=== PATIENT | male | born 1945 | race Caucasian/White ===

== ENCOUNTER → 2017-06-12 07:40 | Outpatient (CLI) | payer MEDICARE, OTHER, SELFPAY ==
[2016-12-12 08:26] VITALS: BMI 26.7
[2016-12-12 10:46] VITALS: BP 137/71
--- NOTE | 2017-06-12 07:48 | RAD_ITS ---
STUDY: X-RAY - LEFT KNEE REASON FOR EXAM: Male, 71 years old. Knee pain. No known injury. TECHNIQUE: 4 view(s) of the knee. COMPARISON: None. FINDINGS: Normal visualized distal femur. Normal visualized proximal tibia and fibula. Normal proximal tibiofibular articulation. Normal medial femorotibial compartment. Normal lateral femorotibial compartment. Normal patellofemoral articulation. The soft tissue structures are unremarkable. RAD/Knee 4 or More Views IMPRESSION: Normal x-ray examination of the knee. Electronically Signed: Gus Ng MD at 12:41 EST Tel [phone], Service support ,
== END ==
PROVIDERS: Family Provider Family Medicine; PCP Family Medicine; Visit Provider Family Medicine
DX: M25.562 Pain in left knee (principal)
CPT/HCPCS: 73564

== ENCOUNTER 2018-01-19 14:30 | Outpatient (RCR) | payer MEDICARE, OTHER, SELFPAY ==
--- NOTE | 2017-11-18 17:16 | HP.PTEVAL_ITS ---
Patient's Visit Information AROLDO NEVILLE is a 72 year old M referred to Physical Therapy by Francesco Sierra DO with a diagnosis of Vertigo/ BPPV. Date of Evaluation: 11/18/17 Physical Therapist: Yamile Patrick - Visit Plan Frequency: 1x/Week Duration: 2 Months Plan: 1X/ week for 3-8 weeks for VOR exercises mostly in vertical plane to start....Started with vertical saccades ( netween 2 X's in vertical plane) for HEP in sitting with no distraction. Progress VOR as able - Subjective Subjective: Pt reports that he has vertigo 4X over the last 45 years.... This is about the 5th week this spell...sinus to ear and antibiotics and then got the vertigo. Current symptoms: dizziness (getting better).. He is no longer spinning. If he is in bed and laying on his back with a pillow he feels it...better to lay on belly. Sometimes he will get dizzy if he rolls from side to side. Fast movement increases his dizziness (last about 5 seconds). This was intermittent when it first started.... No dizziness today. He watches what he does cause he does not want to get sick. He has issues if he looks up toward the ceiling sometimes. Pt has no neck pain. No x-ray or MRI. No issues with balance with walking....when working on his back and sit up he always has to adjust his equilibrium. Pt did comment that sometimes he wakes up and has eye strain behind his eyes and feel like his eyes have a strong pull to the back of his head. - Objective -B Hallpike. -Roll test. Pursuit horizontal X 30 sec made pt nausea to stomach and slight hint of dizzy. Pursuit vertical X 15 sec increased nausea and dizzy and pt had a hard time staying focused on vertical moving pen. Saccades: horizontal a little sick to stomach, vertical really nauseated, decreased fluidity of eye movement and increase in dizziness. VOR CX horizontal : pt could not move eyes and head at the same time with increased dizziness. VOR X 1 horizontal: increase nauseated feeling. +++Increased eye tearing and some verbal talk of strain with eye exercises. +++Pt had a harder to time with visual and audible distractions staying focused. FGA: - Balance Scores Functional Gait Assessment Score: 27 % Disability: 10.0000 - Goals Goal 1:: I HEP Goal Time Frame: 4-6 Weeks Goal 2:: Return to Yoga without having any dizziness Goal Time Frame: 4-6 Weeks Goal 3:: Decrease dizziness with head movements by 75% Goal Time Frame: 4-6 Weeks Goal 4:: Be able to complete head and eye movements together without dizziness or nausea X 1 min in standing wwith background distractions Goal Time Frame: 4-6 Weeks - Rehabilitation Potential Rehabilitation Potential: Good - Anticipated Interventions Patient/Client Instruction: Educate patient on: Condition, Plan of Care For the Purpose of:: To increase ROM, To improve muscle performance and motor function, To improve ability to perform ADL's, To increase tolerance to activity /condition/position, To improve performance and independence with ADL's, To improve gait and locomotor functions, To increase flexibility/ROM, To improve balance, To improve safety with gait Therapeutic Exercise to Include: Strength training, Balance training, Coordination, Postural training, Gait and locomotor training, Neuromotor development, Active ROM For the Purpose of:: To improve nutrient delivery to tissue, To improve muscle performance and motor function, To improve ability to perform ADL's, To increase tolerance to activity/condition/position, To improve ability of physical actions for home/community/work/leisure, To improve gait and locomotor functions, To improve health of tissue, To decrease soft tissue restriction, To increase flexibility/ROM, To improve balance, To improve safety with gait Thank you for the opportunity to evaluate your patient. For Medicare and Medicare HMO plans, please review the plan of care and approve it. It will need to be FAXED BACK to us at [phone] for Medicare purposes. Please let me know if there are questions or concerns regarding this plan of care. Physician Signature: Date:
--- NOTE | 2018-01-12 15:28 | HP.PTREVAL_ITS ---
Francesco Sierra, DO, It has been my pleasure to treat AROLDO NEVILLE over the last 3 visits for Vertigo/ BPPV. Please see the progress note below for an update on the physical therapy plan of care! Subjective: Pt reports no dizziness currently. If he lays down and gets up it takes awhile for him to get his equallibrium to even out. If he works on a vehicle at home and gets up he has to wait. He is doing the eye exercises at times and feels that they did help. Pt reports that if he is laying in bed and holds his neck into protraction to get up he will get dizzy. 37 years ago he was carrying his son around his neck and really had to use his neck to hold his son from falling...no other neck injuty. No weakness in shoulders. No decrease neck ROM. Thursday he was going down steps and fell down the steps by slippery. A little shoulder pain present L due to the fall. ( L shoulder pain 1/0) Objective/Function: Pt felt looser after MT. He felt like he had more ROM. He mentioned that he possibly had some base of neck tingling after MT but not a bad feeling. c-SPINE arom: Flex 100%, Ext 25%, Rot R 50% and L 50%, SB B 50% . UE MMT: 4+/5 B shld flexm abd, ER and IR B. Tender and tight tp palpation of the upper c-spine, paraspinals, occiput, and mid trap B. Pt felt stretching with distraction of the c-spine. Posture: sits with rounded shoulders and protracted head with flexion. Pt had increased ROM and increased ease of c- spine AROM after MT Plan Plan: 2X/ week for 2 weeks for c-spine distraction, c-spine paraspinal MT, mid trap Mt and trigger point with ROM and stretching to see if helps with dizzy feeling when straining his neck as in supine to sit transfers etc. ALSO SCAPULAR AND POSTURAL STRENGTHENING FOR HOME EX Goals Goal 1:: I HEP for scapular strength Goal Time Frame: 4-6 Weeks Goal 2:: Return to Yoga without having any dizziness Goal Time Frame: 4-6 Weeks Goal Progress: Goal Met Goal 3:: Decrease dizziness with head movements by 75% Goal Time Frame: 4-6 Weeks Goal Progress: Goal Met Goal 4:: Be able to complete head and eye movements together without dizziness or nausea X 1 min in standing wwith background distractions Goal Time Frame: 4-6 Weeks Goal 5:: Be able to go from supine to sit with out have wave of dizziness Goal Time Frame: 2-4 Weeks Anticipated Interventions Patient/Client Instruction: Educate patient on: Condition, Plan of Care For the Purpose of:: To increase ROM, To improve muscle performance and motor function, To improve ability to perform ADL's, To increase tolerance to activity /condition/position, To improve performance and independence with ADL's, To improve gait and locomotor functions, To increase flexibility/ROM, To improve balance, To improve safety with gait Therapeutic Exercise to Include: Strength training, Balance training, Coordination, Postural training, Gait and locomotor training, Neuromotor development, Active ROM For the Purpose of:: To improve nutrient delivery to tissue, To improve muscle performance and motor function, To improve ability to perform ADL's, To increase tolerance to activity/condition/position, To improve ability of physical actions for home/community/work/leisure, To improve gait and locomotor functions, To improve health of tissue, To decrease soft tissue restriction, To increase flexibility/ROM, To improve balance, To improve safety with gait Please do not hesitate to contact me at [phone] by phone or Fax: if you have questions or concerns regarding this new plan of care! Sincerely, Yamile Patrick
--- NOTE | 2018-01-20 18:29 | HP.PTDCNRP_ITS ---
HP - Discharge Summary (1) - Patient Information AROLDO NEVILLE was seen in my office for initial evaluation on 11/18/17. The following Plan of Care was established for this patient: Initial Frequency: 1x/Week Initial Duration: 2 Months - Anticipated Interventions Patient/Client Instruction: Educate patient on: Condition, Plan of Care For the Purpose of:: To increase ROM, To improve muscle performance and motor function, To improve ability to perform ADL's, To increase tolerance to activity /condition/position, To improve performance and independence with ADL's, To improve gait and locomotor functions, To increase flexibility/ROM, To improve balance, To improve safety with gait Therapeutic Exercise to Include: Strength training, Balance training, Coordination, Postural training, Gait and locomotor training, Neuromotor development, Active ROM For the Purpose of:: To improve nutrient delivery to tissue, To improve muscle performance and motor function, To improve ability to perform ADL's, To increase tolerance to activity/condition/position, To improve ability of physical actions for home/community/work/leisure, To improve gait and locomotor functions, To improve health of tissue, To decrease soft tissue restriction, To increase flexibility/ROM, To improve balance, To improve safety with gait This patient was last seen in our office 01/19/18. Pertinent comments regarding their Physical therapy will appear below: Pt reported on 01-19-18 that he was 99% better and was no longer having dizziness. We tried a little c-spine traction to and MT to the c-spine musculature to see if helped with any residual issues and pt called backed and said that the c-spine manual therapy was not that effective and he cancelled his last appointment with us. He will be discharged from our care at this point. At this point I will be discontinuing this patient from physical therapy. I would be happy to see this patient again in the future if found appropriate by the physician. Thank you! Yamile Patrick
== END 2018-01-19 19:00 | disposition home or self-care (01) ==
LOC: PT 14:30
PROVIDERS: Family Provider Family Medicine; PCP Family Medicine; Visit Provider Family Medicine
DX: R42 Dizziness and giddiness (principal)
CPT/HCPCS: 97110; 97140; 97162; 97530

== ENCOUNTER → 2018-02-19 06:31 | Outpatient (CLI) | payer MEDICARE, OTHER, SELFPAY ==
[2018-02-19 08:33] LABS: PSA,Total- Diagnostic 3.86 ng/mL (0.0-4.0)
== END ==
LOC: LAB.FUTURE 08-23 00:37 → BFHLAB 12-21 13:39
PROVIDERS: Family Provider Family Medicine; PCP Family Medicine; Referring Provider Urology; Visit Provider Urology
DX: R97.20 Elevated prostate specific antigen [PSA] (principal)
CPT/HCPCS: 36415; 84153

== ENCOUNTER → 2018-06-05 07:46 | Outpatient (CLI) | payer MEDICARE, OTHER, SELFPAY ==
[2016-12-12 08:26] VITALS: BMI 26.7
[2018-06-05 08:23] LABS: Absolute Lymphocyte Count 2.23 X10^3/ul (0.83-4.51); Absolute Neutrophil Count 3.5 X10^3/uL (2.0-7.7); Basophil# 0.06 X10^3/uL; Basophil% 0.9 % (0-1); Eosinophil# 0.18 X10^3/uL; Eosinophils% 2.6 % (0-5); Hemoglobin 16.2 g/dl (13.0-16.5); Lymphocyte # 2.23 X10^3/ul (4.0); Lymphocyte % 32.7 % (19-41); Mean Corp Hgb Conc 33.1 g/gl (32-36); Mean Corpuscular Hgb 29.5 pg (27.0-32.0); Mean Corpuscular Volume 89.3 fL (80-94); Mean Platelet Vol. 9.5 fl (6.2-12.0); Monocyte% 11.7 % (0-10); Neutrophil # 3.53 X10^3/uL (2.7-7.7); Neutrophil % 51.8 % (47-70); POSITIVE COUNT NO; POSITIVE DIFFERENTIAL NO; POSITIVE MORPHOLOGY NO; Platelet Count 294 K/mm3 (150-450); RBC Distribution Width CV 12.9 % (11.6-14.6); RBC Distribution Width SD 41.7 fl (35.1-43.9); Red Blood Count 5.49 M/mm3 (4.6-6.2); White Blood Count 6.8 K/mm3 (4.4-11.0)
[2018-06-05 08:50] LABS: ALB/GLOB Ratio 0.9 RATIO (0.9-2.4); AST(SGOT) 15 U/L (15-37); Alanine Aminotransfer ALT/SGPT 27 U/L (16-61); Albumin, Serum 3.7 g/dL (3.2-5.0); Alkaline Phosphatase 102 U/L (45-117); Anion Gap 9 (5-15); BUN 17 mg/dL (7-18); BUN/Creat Ratio 17.4 RATIO (10-20); Calcium,Total 8.8 mg/dL (8.5-10.1); Chloride 104 mmol/L (98-107); Cholesterol 224 mg/dL (200); Creatinine, Serum 0.98 mg/dL (0.70-1.30); EST Glomerular Filtration Rate 81 mL/min (>60); Est Glom Filt Rate - Afr Amer 97 mL/min (>60); Globulin 4.2 g/dL (2.2-4.2); Glucose 123 mg/dL (74-106); High Density Lipoprotein 71 mg/dL; Potassium 4.3 mmol/L (3.5-5.1); Protein, Total 7.9 g/dL (6.4-8.2); Sodium Level 139 mmol/L (136-145); Triglycerides 104 mg/dL; Very Low Density Lipoprotein 21 mg/dL (5-40)
== END ==
LOC: LAB.FUTURE 04-18 23:09 → BFHLAB 12-21 13:39
PROVIDERS: Family Provider Family Medicine; PCP Family Medicine; Referring Provider Family Medicine; Visit Provider Family Medicine
DX: I10 Essential (primary) hypertension (principal); E78.5 Hyperlipidemia, unspecified; R73.01 Impaired fasting glucose
CPT/HCPCS: 36415; 80053; 80061; 83036; 85025

== ENCOUNTER → 2019-03-15 08:44 | Outpatient (CLI) | payer MEDICARE, OTHER, SELFPAY ==
[2016-12-12 08:26] VITALS: BMI 26.7
[2019-03-15 10:06] LABS: PSA,Total- Diagnostic 2.96 ng/mL (0.0-4.0)
== END ==
LOC: LAB.FUTURE 10:28 → LAB 10:51
PROVIDERS: Family Provider Family Medicine; PCP Family Medicine; Referring Provider Urology; Visit Provider Urology
DX: N40.1 Benign prostatic hyperplasia with lower urinary tract symptoms (principal)
CPT/HCPCS: 36415; 84153

== ENCOUNTER → 2019-05-26 06:50 | Outpatient (CLI) | payer MEDICARE, OTHER, SELFPAY ==
[2016-12-12 08:26] VITALS: BMI 26.7
[2019-05-26 07:32] LABS: Absolute Lymphocyte Count 2.09 X10^3/uL (0.83-4.51); Absolute Neutrophil Count 3.8 X10^3/uL (2.0-7.7); Basophil# 0.09 X10^3/uL; Basophil% 1.3 % (0-1); Eosinophil# 0.21 X10^3/uL; Eosinophils% 3.1 % (0-5); Hematocrit 49.7 % (40-54); Hemoglobin 16.3 g/dL (13.0-16.5); Lymphocyte # 2.09 X10^3/ul (4.0); Lymphocyte % 30.4 % (19-41); Mean Corp Hgb Conc 32.8 g/dL (32-36); Mean Corpuscular Hgb 29.1 pg (27.0-32.0); Mean Corpuscular Volume 88.6 fL (80-94); Mean Platelet Vol. 9.3 fl (6.2-12.0); Monocyte# 0.69 X10^3/uL; NRBC Flagged by Analyzer 0 % (0-5); Neutrophil # 3.79 X10^3/uL (2.7-7.7); Neutrophil % 55.1 % (47-70); Platelet Count 346 K/mm3 (150-450); RBC Distribution Width CV 12.3 % (11.6-14.6); Red Blood Count 5.61 M/mm3 (4.6-6.2); White Blood Count 6.9 K/mm3 (4.4-11.0)
[2019-05-26 07:40] LABS: ALB/GLOB Ratio 0.9 RATIO (0.9-2.4); AST(SGOT) 16 U/L (15-37); Alanine Aminotransfer ALT/SGPT 28 U/L (16-61); Albumin, Serum 3.7 g/dL (3.2-5.0); Alkaline Phosphatase 99 U/L (45-117); Anion Gap 2 (5-15); BUN 16 mg/dL (7-18); BUN/Creat Ratio 14.5 RATIO (10-20); Calcium,Total 9.2 mg/dL (8.5-10.1); Chloride 106 mmol/L (98-107); Cholesterol 227 mg/dL (200); EST Glomerular Filtration Rate 70 mL/min (>60); Est Glom Filt Rate - Afr Amer 85 mL/min (>60); Globulin 4.2 g/dL (2.2-4.2); Glucose 120 mg/dL (74-106); High Density Lipoprotein 72 mg/dL; Potassium 4.4 mmol/L (3.5-5.1); Protein, Total 7.9 g/dL (6.4-8.2); Sodium Level 138 mmol/L (136-145); Triglycerides 123 mg/dL; Very Low Density Lipoprotein 25 mg/dL (5-40)
[2019-05-26 09:14] LABS: Hemoglobin A1c 6.6 % (4.2-6.3)
[2019-05-26 09:23] LABS: Microalbumin,Random Urine 12.7 mg/L (NO RANGE EST.); Microalbumin:Creatinine Ratio 7.1 mg/g CRE (<30 mg/g CRE)
== END ==
LOC: LAB.FUTURE 06:54 → LAB 07:00
PROVIDERS: Family Provider Family Medicine; PCP Family Medicine; Referring Provider Family Medicine; Visit Provider Family Medicine
DX: I10 Essential (primary) hypertension (principal); E11.9 Type 2 diabetes mellitus without complications; E78.5 Hyperlipidemia, unspecified
CPT/HCPCS: 36415; 80053; 80061; 82043; 82570; 83036; 85025

== ENCOUNTER 2019-11-25 11:04 | Emergency (ER) | payer MEDICARE, OTHER, SELFPAY ==
[2019-11-25 11:05] VITALS: BP 178/85; PULSE 74; RESP 16; TEMP 36.7; O2SAT 96; BMI 27.3
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
== END 2019-11-25 12:29 | disposition home or self-care (01) ==
LOC: ED 12:26
PROVIDERS: Emergency Provider Emergency Medicine; PCP Family Medicine
DX: S01.21XA Laceration without foreign body of nose, initial encounter (principal); W22.8XXA Striking against or struck by other objects, initial encounter; Y93.9 Activity, unspecified; Y92.89 Other specified places as the place of occurrence of the external cause; Y99.9 Unspecified external cause status; Z88.8 Allergy status to other drugs, medicaments and biological substances
CPT/HCPCS: 12011; 70450; 99282

== ENCOUNTER → 2020-02-07 15:10 | Outpatient (CLI) | payer MEDICARE, OTHER, SELFPAY | PROVIDERS: PCP Family Medicine; Referring Provider Urology; Visit Provider Urology | DX: R97.20 Elevated prostate specific antigen [PSA] (principal) | CPT/HCPCS: 36415; 84153 ==

== ENCOUNTER → 2020-03-08 16:05 | Outpatient (CLI) | payer MEDICARE, OTHER, SELFPAY ==
--- NOTE | 2020-03-08 | IMM_PTH ---
PATIENT: AROLDO NEVILLE LOC: [facility] U#:[id number] AGE/SX: 79/M ROOM: RE03/08/[address]: Dr. Aron Cheney MD : 1945 BED: DIS: SPEC #: [id number] RECD: 03/12/20 14:00 STATUS: JYOTI REQ #: [id number] DOMINIK: 03/08/20 00:[address]: Aron Cheney DEPT: IMMUNOHISTOCHEMISTRY RECD BY: Sarah Richardson ENTERED: 03/12/20 14:02 SP TYPE: IMMUNO OTHR DR: Dr. Francesco Sierra DO Tissues: A - PROSTATE RIGHT B - PROSTATE RIGHT C - PROSTATE RIGHT D - PROSTATE LEFT E - PROSTATE LEFT F - PROSTATE LEFT Procedures: 34BE12 (add) P40 (add) 34BE12 (initial) PHYSICIAN & INSTITUTION [place] [id number] SPECIMEN INFORMATION: Tissue Source: A - Right apex, B - Right mid, C - Right base, D - Left apex, E - Left mid, F - Left base Clinical Info: Elevated PSA, nodular prostate Specimen Number: [id number] CPT code: 79912, 47911 x11 METHODOLOGY: Deparaffinized sections of prefer/formalin-fixed tissue or PAP/DQ stained slides are incubated with monoclonal/polyclonal antibodies/oligonucleotide probes. Localization is made via biotin free immunoperoxidase method. Appropriate controls are performed and reacted as expected. Results on target cell population are indicated in the following table: RESULTS: ANTIBODY / CLONE RESULT Block A P40 (BC28) positive 34BE12 (34BE12) positive Block B P40 (BC28) positive 34BE12 (34BE12) positive Block C P40 (BC28) positive 34BE12 (34BE12) positive Block D P40 (BC28) positive 34BE12 (34BE12) positive Block E P40 (BC28) positive 34BE12 (34BE12) positive Block F P40 (BC28) positive 34BE12 (34BE12) positive These tests were developed and their performance characteristics determined by [facility]. They may not have been cleared or approved by the U.S. Food and Drug Administration. The FDA has determined that such clearance or approval is not necessary. The above immunohistochemical/dualISH markers are ordered and reviewed by the Pathologist. INTERPRETATION: A. Right prostate, apex, core biopsy: High-grade prostatic intraepithelial neoplasia (HGPIN). B. Right prostate, mid, core biopsy: High-grade prostatic intraepithelial neoplasia (HGPIN). C. Right prostate, base, core biopsy: High-grade prostatic intraepithelial neoplasia (HGPIN). D. Left prostate, apex, core biopsy: High-grade prostatic intraepithelial neoplasia (HGPIN). E. Left prostate, mid, core biopsy: High-grade prostatic intraepithelial neoplasia (HGPIN). F. Left prostate, base, core biopsy: High-grade prostatic intraepithelial neoplasia (HGPIN). SJ:jessica 03/13/20
--- NOTE | 2020-03-08 08:00 | PROSBIL_PTH ---
PATIENT: AROLDO NEVILLE LOC: [facility] U#:[id number] AGE/SX: 79/M ROOM: RE03/08/[address]: Dr. Aron Cheney MD : 1945 BED: DIS: SPEC #: [id number] RECD: 03/08/20 15:53 STATUS: JYOTI PADMA #: [id number] DOMINIK: 03/08/20 08:[address]: Aron Cheney DEPT: SURGICAL PATHOLOGY RECD BY: Cristina Victor ENTERED: 03/09/20 06:47 SP TYPE: PROST BX OSMIN DR: Dr. Francesco Sierra DO Tissues: A - PROSTATE RIGHT B - PROSTATE RIGHT C - PROSTATE RIGHT D - PROSTATE LEFT E - PROSTATE LEFT F - PROSTATE LEFT Procedures: PROSTATE BX HEADER OPERATION: Prostate biopsy PRE-OP DIAGNOSIS: Elevated PSA; nodular prostate TISSUE SUBMITTED: A - Right apex, B - Right mid, C - Right base, D - Left apex, E - Left mid, F - Left base MICROSCOPIC DIAGNOSIS A. Right prostate, apex, core biopsy: Focal high-grade prostatic intraepithelial neoplasia (HGPIN). See comment. B. Right prostate, mid, core biopsy: Focal high-grade prostatic intraepithelial neoplasia (HGPIN). Focal mild chronic inflammation. See comment. C. Right prostate, base, core biopsy: Focal high-grade prostatic intraepithelial neoplasia (HGPIN). Focal mild chronic inflammation. See comment. D. Left prostate, apex, core biopsy: Focal high-grade prostatic intraepithelial neoplasia (HGPIN). Focal mild chronic inflammation. See comment. E. Left prostate, mid, core biopsy: Focal high-grade prostatic intraepithelial neoplasia (HGPIN). See comment. F. Left prostate, base, core biopsy: Focal high-grade prostatic intraepithelial neoplasia (HGPIN). See comment. SJ:rg 03/13/20 COMMENT A-F. Immunohistochemistry ([id number]) supports the above diagnosis. Please make reference to previous specimen ([id number]) right prostate, apex, deep middle and base and left prostate, apex, middle and base biopsies with diagnosis of high-grade prostatic intraepithelial neoplasia. Slides are reviewed again. Tumor in present biopsy shows similar morphologic features as in the previous biopsy. MICROSCOPIC DESCRIPTION Slides are reviewed. GROSS DESCRIPTION A - Received is one container designated prostate, right apex. The specimen consists of two elongated fragments of light correia-white soft tissue each measuring 0.7 cm in length and 0.1 cm in diameter. The specimen is totally submitted in one cassette. B - Received is one container designated prostate, right mid. The specimen consists of two elongated fragments of light correia-white soft tissue measuring 1.2 and 1.5 cm in length and 0.1 cm in diameter. The specimen is totally submitted in one cassette. C - Received is one container designated prostate, right base. The specimen consists of two elongated fragments of light correia-white soft tissue each measuring 1.5 cm in length and 0.1 cm in diameter. The specimen is totally submitted in one cassette. D - Received is one container designated prostate, left apex. The specimen consists of two elongated fragments of light correia-white soft tissue measuring 0.7 and 1 cm in length and 0.1 cm in diameter. The specimen is totally submitted in one cassette. E - Received is one container designated prostate, left mid. The specimen consists of two elongated fragments of light correia-white soft tissue measuring 0.5 and 2 cm in length and 0.1 cm in diameter. The specimen is totally submitted in one cassette. F - Received is one container designated prostate, left base. The specimen consists of two elongated fragments of light correia-white soft tissue each measuring 1.5 cm in length and 0.1 cm in diameter. The specimen is totally submitted in one cassette. / JOS:jessica 03/09/20 TC:5 CPT: G0146 ADDENDUM ADDENDUM ADDENDUM ADDENDUM ADDENDUM ADDENDUM ADDENDUM ADDENDUM ADDENDUM ADDENDUM ADDENDUM ADDENDUM ADDENDUM ADDENDUM ADDENDUM ADDENDUM 03/23/2020 12:48 ADDENDUM 03/23/2020 12:48 ADDENDUM 03/23/2020 12:48 ADDENDUM 03/23/2020 12:48 ADDENDUM 03/23/2020 12:48 A. Right prostate, apex, core biopsy: High-grade prostatic intraepithelial neoplasia (HGPIN). B. Right prostate, mid, core biopsy: High-grade prostatic intraepithelial neoplasia (HGPIN). C. Right prostate, base, core biopsy: High-grade prostatic intraepithelial neoplasia (HGPIN). D. Left prostate, apex, core biopsy: High-grade prostatic intraepithelial neoplasia (HGPIN). E. Left prostate, mid, core biopsy: High-grade prostatic intraepithelial neoplasia (HGPIN). F. Left prostate, base, core biopsy: High-grade prostatic intraepithelial neoplasia (HGPIN). The specimen is sent to [facility] for expert opinion, reviewed by Dr. Denny and the above diagnosis is rendered. The complete report is viewable in the patient's EMR.
== END ==
PROVIDERS: PCP Family Medicine; Referring Provider Urology; Visit Provider Urology
DX: N40.2 Nodular prostate without lower urinary tract symptoms (principal); R97.20 Elevated prostate specific antigen [PSA]
CPT/HCPCS: 88305; 88341; 88342; G0416

== ENCOUNTER → 2020-05-21 11:03 | Outpatient (CLI) | payer MEDICARE, OTHER, SELFPAY ==
[2020-05-21 12:56] LABS: Absolute Lymphocyte Count 1.58 X10^3/uL (0.83-4.51); Absolute Neutrophil Count 5.3 X10^3/uL (2.0-7.7); Basophil# 0.04 X10^3/uL; Basophil% 0.5 % (0-1); Eosinophil# 0.06 X10^3/uL; Eosinophils% 0.8 % (0-5); Hematocrit 48.6 % (40-54); Hemoglobin 15.8 g/dL (13.0-16.5); Lymphocyte # 1.58 X10^3/ul (4.0); Lymphocyte % 20.4 % (19-41); Mean Corp Hgb Conc 32.5 g/dL (32-36); Mean Corpuscular Hgb 28.7 pg (27.0-32.0); Mean Corpuscular Volume 88.4 fL (80-94); Mean Platelet Vol. 9.6 fl (6.2-12.0); Monocyte# 0.77 X10^3/uL; Monocyte% 9.9 % (0-10); NRBC Flagged by Analyzer 0 % (0-5); Neutrophil # 5.29 X10^3/uL (2.7-7.7); Neutrophil % 68.3 % (47-70); Platelet Count 367 K/mm3 (150-450); RBC Distribution Width CV 11.8 % (11.6-14.6); RBC Distribution Width SD 38.2 fl (35.1-43.9); White Blood Count 7.8 K/mm3 (4.4-11.0)
[2020-05-21 13:12] LABS: Hemoglobin A1c 7.2 % (3.8-5.6)
[2020-05-21 13:40] LABS: ALB/GLOB Ratio 0.8 RATIO (0.9-2.4); AST(SGOT) 12 U/L (15-37); Alanine Aminotransfer ALT/SGPT 27 U/L (16-61); Albumin, Serum 3.8 g/dL (3.2-5.0); Alkaline Phosphatase 95 U/L (45-117); Anion Gap 9 (5-15); BUN 18 mg/dL (7-18); BUN/Creat Ratio 18.6 RATIO (10-20); CRP 6.36 mg/L (0.0-3.0); Calcium,Total 9.4 mg/dL (8.5-10.1); Chloride 102 mmol/L (98-107); Creatinine, Serum 0.97 mg/dL (0.70-1.30); EST Glomerular Filtration Rate 81 mL/min (>60); Est Glom Filt Rate - Afr Amer 98 mL/min (>60); Globulin 4.5 g/dL (2.2-4.2); Glucose 153 mg/dL (74-106); LDH 158 U/L (87-241); Protein, Total 8.3 g/dL (6.4-8.2); Sodium Level 136 mmol/L (136-145); T4 Free Direct 1.01 ng/dL (0.76-1.46); Thyroid Stim Hormone (TSH) 2.23 uIU/mL (0.358-3.74)
[2020-05-21 14:43] LABS: Hepatitis C Antibody Non-Reactive (Nonreactive)
[2020-05-24 08:08] LABS: QNTFERON TB Mitogen Value > 10.00 IU/mL (.); QNTFERON TB Nil Value 0.04 IU/mL (.); QNTFERON TB1+ Ag Value 0.03 IU/mL (.); QNTFERON TB2+ Ag Value 0.03 IU/mL (.); Testosterone, Free 11.42 ng/dL (5.00-21.00)
[2020-05-24 14:10] LABS: QNTIFERON TB Positive Criteria Negative (Negative); Testosterone, % Free 2.37 % (1.50-4.20); Testosterone, Total 482 ng/dL (264-916)
== END ==
PROVIDERS: PCP Family Medicine; Visit Provider Family Medicine
DX: E11.9 Type 2 diabetes mellitus without complications (principal); I10 Essential (primary) hypertension; E78.5 Hyperlipidemia, unspecified; R61 Generalized hyperhidrosis; R53.83 Other fatigue
CPT/HCPCS: 36415; 80053; 83036; 83615; 84402; 84403; 84439; 84443; 85025; 86140; 86480; 86803

== ENCOUNTER → 2020-11-07 08:39 | Outpatient (CLI) | payer MEDICARE, OTHER, SELFPAY ==
[2020-11-07 09:29] LABS: Basophil# 0.07 X10^3/uL; Basophil% 0.8 % (0-1); Eosinophils% 1.1 % (0-5); Hematocrit 46.6 % (40-54); Hemoglobin 15.3 g/dL (13.0-16.5); Lymphocyte % 22.9 % (19-41); Mean Corp Hgb Conc 32.8 g/dL (32-36); Mean Corpuscular Hgb 28.7 pg (27.0-32.0); Mean Corpuscular Volume 87.4 fL (80-94); Mean Platelet Vol. 9.2 fl (6.2-12.0); Monocyte# 0.89 X10^3/uL; Monocyte% 9.7 % (0-10); NRBC Flagged by Analyzer 0 % (0-5); Neutrophil # 5.98 X10^3/uL (2.7-7.7); Neutrophil % 65.3 % (47-70); Platelet Count 404 K/mm3 (150-450); RBC Distribution Width CV 12.3 % (11.6-14.6); RBC Distribution Width SD 39.5 fl (35.1-43.9); Red Blood Count 5.33 M/mm3 (4.6-6.2); White Blood Count 9.2 K/mm3 (4.4-11.0)
[2020-11-07 10:06] LABS: ALB/GLOB Ratio 0.9 RATIO (0.9-2.4); AST(SGOT) 14 U/L (15-37); Alanine Aminotransfer ALT/SGPT 21 U/L (16-61); Albumin, Serum 3.7 g/dL (3.2-5.0); Alkaline Phosphatase 107 U/L (45-117); Anion Gap 5 (5-15); BUN 16 mg/dL (7-18); Chloride 104 mmol/L (98-107); Cholesterol 245 mg/dL (200); Creatinine, Serum 1.07 mg/dL (0.70-1.30); EST Glomerular Filtration Rate 72 mL/min (>60); Est Glom Filt Rate - Afr Amer 87 mL/min (>60); Globulin 4.3 g/dL (2.2-4.2); Glucose 156 mg/dL (74-106); High Density Lipoprotein 75 mg/dL; Sodium Level 134 mmol/L (136-145); Triglycerides 102 mg/dL; Very Low Density Lipoprotein 20 mg/dL (5-40)
[2020-11-07 10:10] LABS: Hemoglobin A1c 7.5 % (3.8-5.6)
[2020-11-07 10:49] LABS: Microalbumin:Creatinine Ratio 16.2 mg/g CRE (<30 mg/g CRE)
== END ==
PROVIDERS: PCP Family Medicine; Referring Provider Family Medicine; Visit Provider Family Medicine
DX: E11.9 Type 2 diabetes mellitus without complications (principal); E78.5 Hyperlipidemia, unspecified; Z51.81 Encounter for therapeutic drug level monitoring
CPT/HCPCS: 36415; 80053; 80061; 82043; 82570; 83036; 85025

== ENCOUNTER → 2020-12-11 10:30 | Outpatient (CLI) | payer MEDICARE, OTHER, SELFPAY ==
--- NOTE | 2020-12-11 10:36 | RAD_ITS ---
STUDY: X-RAY - PELVIS REASON FOR EXAM: Male, 75 years old. Hip pain. TECHNIQUE: One view of the pelvis was obtained. COMPARISON: None. FINDINGS: There is a non-specific bowel gas pattern. Coils in the pelvis. Normal bilateral iliac wings, sacroiliac joints and visualized sacrum. Normal visualized bilateral superior and inferior pubic rami. Moderate arthrosis of the symphysis pubis. Normal ischial tuberosities. Mild arthrosis of both hips. 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 No acute finding. Electronically Signed: Brian Davis MD at 9:32 EDT , Service support ,
== END ==
PROVIDERS: PCP Family Medicine; Referring Provider Family Medicine; Visit Provider Family Medicine
DX: M25.551 Pain in right hip (principal); M25.552 Pain in left hip
CPT/HCPCS: 72170

== ENCOUNTER → 2021-01-11 17:02 | Outpatient (CLI) | payer MEDICARE, OTHER, SELFPAY ==
--- NOTE | 2021-01-11 17:24 | RAD_ITS ---
STUDY: X-RAY - LEFT KNEE REASON FOR EXAM: Male, 75 years old. L KNEE PAIN TECHNIQUE: 3 view(s) of the knee. COMPARISON: None. FINDINGS: Normal visualized distal femur. Normal visualized proximal tibia and fibula. Normal proximal tibiofibular articulation. Normal medial femorotibial compartment. Normal lateral femorotibial compartment. Normal patellofemoral articulation. The soft tissue structures are unremarkable. RAD/Knee 4 or More Views IMPRESSION: Normal x-ray examination of the knee. Electronically Signed: Leah Freire MD at 12:00 EDT Tel , Service support ,
== END ==
PROVIDERS: PCP Family Medicine; Referring Provider Family Medicine; Visit Provider Family Medicine
DX: M25.562 Pain in left knee (principal)
CPT/HCPCS: 73564

== ENCOUNTER → 2021-03-08 07:20 | Outpatient (CLI) | payer MEDICARE, OTHER, SELFPAY ==
[2021-03-08 08:16] LABS: PSA,Total- Diagnostic 4.39 ng/mL (0.0-4.0)
== END ==
PROVIDERS: PCP Family Medicine; Visit Provider Urology
DX: R97.20 Elevated prostate specific antigen [PSA] (principal)
CPT/HCPCS: 36415; 84153

== ENCOUNTER → 2021-04-11 17:51 | Outpatient (CLI) | payer MEDICARE, OTHER, SELFPAY | PROVIDERS: PCP Family Medicine; Referring Provider Family Medicine; Visit Provider Family Medicine | DX: R05.9 Cough, unspecified (principal); R09.81 Nasal congestion; R52 Pain, unspecified | CPT/HCPCS: 87633; 87635; U0005; U0003 ==

== ENCOUNTER 2021-06-12 08:49 | Outpatient (CLI) | payer MEDICARE, OTHER, SELFPAY ==
[2021-06-12 11:52] LABS: Cholesterol 221 mg/dL (200); High Density Lipoprotein 76 mg/dL; Triglycerides 91 mg/dL; Very Low Density Lipoprotein 18 mg/dL (5-40)
== END 2021-06-12 23:59 | disposition home or self-care (01) ==
LOC: LAB 08:52
PROVIDERS: PCP Family Medicine; Referring Provider Family Medicine; Visit Provider Family Medicine
DX: E11.9 Type 2 diabetes mellitus without complications (principal); E78.5 Hyperlipidemia, unspecified
CPT/HCPCS: 36415; 80061; 83036

== ENCOUNTER → 2021-10-11 | Outpatient (CLI) | payer MEDICARE, OTHER, SELFPAY ==
[2021-10-11 06:41] LABS: Absolute Lymphocyte Count 1.98 X10^3/uL (0.83-4.51); Absolute Neutrophil Count 3.2 X10^3/uL (2.0-7.7); Basophil# 0.07 X10^3/uL; Basophil% 1.1 % (0-1); Eosinophil# 0.22 X10^3/uL; Eosinophils% 3.5 % (0-5); Hematocrit 47.6 % (40-54); Hemoglobin 15.8 g/dL (13.0-16.5); Lymphocyte # 1.98 X10^3/ul (0.83-4.51); Lymphocyte % 31.9 % (19-41); Mean Corp Hgb Conc 33.2 g/dL (32-36); Mean Corpuscular Hgb 29.5 pg (27.0-32.0); Mean Corpuscular Volume 88.8 fL (80-94); Mean Platelet Vol. 9.3 fl (6.2-12.0); Monocyte# 0.72 X10^3/uL; Monocyte% 11.6 % (0-10); NRBC Flagged by Analyzer 0 % (0-5); Neutrophil # 3.21 X10^3/uL (2.7-7.7); Neutrophil % 51.7 % (47-70); Platelet Count 307 K/mm3 (150-450); RBC Distribution Width CV 12.6 % (11.6-14.6); RBC Distribution Width SD 41.2 fl (35.1-43.9); Red Blood Count 5.36 M/mm3 (4.6-6.2); White Blood Count 6.2 K/mm3 (4.4-11.0)
[2021-10-11 07:05] LABS: Microalbumin,Random Urine 11.3 mg/L (NO RANGE EST.); Microalbumin:Creatinine Ratio 7.6 mg/g CRE (<30 mg/g CRE)
[2021-10-11 07:10] LABS: AST(SGOT) 13 U/L (15-37); Alanine Aminotransfer ALT/SGPT 16 U/L (16-61); Albumin, Serum 3.6 g/dL (3.2-5.0); Alkaline Phosphatase 73 U/L (45-117); Anion Gap 4 (5-15); BUN 22 mg/dL (7-18); BUN/Creat Ratio 20.8 RATIO (10-20); Calcium,Total 8.9 mg/dL (8.5-10.1); Chloride 104 mmol/L (98-107); Cholesterol 219 mg/dL (200); Creatinine, Serum 1.06 mg/dL (0.70-1.30); EST Glomerular Filtration Rate 73 mL/min (>60); Est Glom Filt Rate - Afr Amer 88 mL/min (>60); Globulin 3.6 g/dL (2.2-4.2); Glucose 119 mg/dL (74-106); High Density Lipoprotein 70 mg/dL; Potassium 4.3 mmol/L (3.5-5.1); Protein, Total 7.2 g/dL (6.4-8.2); Sodium Level 136 mmol/L (136-145); Triglycerides 92 mg/dL; Very Low Density Lipoprotein 18 mg/dL (5-40)
[2021-10-11 07:53] LABS: Hemoglobin A1c 6.1 % (3.8-5.6)
[2021-10-11 08:25] LABS: Vitamin B12 236 pg/mL (211-911)
== END | disposition home or self-care (01) ==
LOC: LAB 06:20
PROVIDERS: PCP Family Medicine; Referring Provider Family Medicine; Visit Provider Family Medicine
DX: E11.9 Type 2 diabetes mellitus without complications (principal); I10 Essential (primary) hypertension; E78.5 Hyperlipidemia, unspecified; Z51.81 Encounter for therapeutic drug level monitoring
CPT/HCPCS: 36415; 80053; 80061; 82043; 82570; 82607; 83036; 85025

== ENCOUNTER → 2021-12-30 | Outpatient (CLI) | payer MEDICARE, OTHER, SELFPAY ==
[2021-12-30 10:20] LABS: Hemoglobin A1c 6.2 % (3.8-5.6)
[2021-12-30 10:26] LABS: Vitamin B12 506 pg/mL (211-911)
== END | disposition home or self-care (01) ==
PROVIDERS: PCP Family Medicine; Referring Provider Family Medicine; Visit Provider Family Medicine
DX: E11.9 Type 2 diabetes mellitus without complications (principal); E53.8 Deficiency of other specified B group vitamins
CPT/HCPCS: 36415; 82607; 83036

== ENCOUNTER → 2022-03-28 | Outpatient (CLI) | payer MEDICARE, OTHER, SELFPAY ==
[2022-03-28 12:16] LABS: PSA,Total- Diagnostic 3.57 ng/mL (0.0-4.0)
== END | disposition home or self-care (01) ==
LOC: MTLAB 10:14
PROVIDERS: PCP Family Medicine; Referring Provider Urology; Visit Provider Urology
DX: R97.20 Elevated prostate specific antigen [PSA] (principal)
CPT/HCPCS: 36415; 84153

== ENCOUNTER → 2022-08-05 | Outpatient (CLI) | payer MEDICARE, OTHER, SELFPAY ==
[2022-08-05 12:40] LABS: Absolute Lymphocyte Count 1.28 X10^3/uL (0.83-4.51); Absolute Neutrophil Count 4.1 X10^3/uL (2.0-7.7); Basophil# 0.06 X10^3/uL; Eosinophil# 0.12 X10^3/uL; Eosinophils% 1.9 % (0-5); Hematocrit 46.2 % (40-54); Hemoglobin 14.9 g/dL (13.0-16.5); Lymphocyte # 1.28 X10^3/ul (0.83-4.51); Lymphocyte % 20.7 % (19-41); Mean Corp Hgb Conc 32.3 g/dL (32-36); Mean Corpuscular Hgb 29.6 pg (27.0-32.0); Mean Corpuscular Volume 91.7 fL (80-94); Mean Platelet Vol. 10.3 fl (6.2-12.0); Monocyte# 0.65 X10^3/uL; Monocyte% 10.5 % (0-10); NRBC Flagged by Analyzer 0 % (0-5); Neutrophil # 4.06 X10^3/uL (2.7-7.7); Neutrophil % 65.6 % (47-70); Platelet Count 397 K/mm3 (150-450); RBC Distribution Width CV 12.3 % (11.6-14.6); RBC Distribution Width SD 41.7 fl (35.1-43.9); Red Blood Count 5.04 M/mm3 (4.6-6.2); White Blood Count 6.2 K/mm3 (4.4-11.0)
[2022-08-05 13:14] LABS: Thyroid Stim Hormone (TSH) 1.63 uIU/mL (0.358-3.74)
[2022-08-06 09:34] LABS: Hemoglobin A1c 7.1 % (3.8-5.6)
[2022-08-08 22:06] LABS: Testosterone, Free 6.43 ng/dL (5.00-21.00)
[2022-08-09 14:15] LABS: Testosterone, % Free 1.72 % (1.50-4.20); Testosterone, Total 374 ng/dL (264-916)
== END | disposition home or self-care (01) ==
LOC: BFHLAB 08:42
PROVIDERS: PCP Family Medicine; Referring Provider Family Medicine; Visit Provider Family Medicine
DX: E11.9 Type 2 diabetes mellitus without complications (principal); R61 Generalized hyperhidrosis; E03.9 Hypothyroidism, unspecified
CPT/HCPCS: 36415; 83036; 84402; 84403; 84443; 85025

== ENCOUNTER → 2023-02-10 | Outpatient (CLI) | payer MEDICARE, OTHER, SELFPAY ==
[2023-02-10 12:15] LABS: Absolute Lymphocyte Count 1.89 X10^3/uL (0.83-4.51); Basophil# 0.08 X10^3/uL; Eosinophil# 0.27 X10^3/uL; Eosinophils% 3.3 % (0-5); Hematocrit 47.8 % (40-54); Hemoglobin 15.5 g/dL (13.0-16.5); Lymphocyte # 1.89 X10^3/ul (0.83-4.51); Lymphocyte % 23.2 % (19-41); Mean Corp Hgb Conc 32.4 g/dL (32-36); Mean Corpuscular Hgb 29.6 pg (27.0-32.0); Mean Corpuscular Volume 91.2 fL (80-94); Mean Platelet Vol. 10.1 fl (6.2-12.0); Monocyte# 0.87 X10^3/uL; Monocyte% 10.7 % (0-10); NRBC Flagged by Analyzer 0 % (0-5); Neutrophil # 5.02 X10^3/uL (2.7-7.7); Neutrophil % 61.6 % (47-70); Platelet Count 387 K/mm3 (150-450); RBC Distribution Width CV 12.4 % (11.6-14.6); RBC Distribution Width SD 41.2 fl (35.1-43.9); Red Blood Count 5.24 M/mm3 (4.6-6.2); White Blood Count 8.2 K/mm3 (4.4-11.0)
[2023-02-10 12:44] LABS: ALB/GLOB Ratio 0.8 RATIO (0.9-2.4); AST(SGOT) 12 U/L (15-37); Alanine Aminotransfer ALT/SGPT 24 U/L (16-61); Albumin, Serum 3.5 g/dL (3.2-5.0); Alkaline Phosphatase 97 U/L (45-117); Anion Gap 6 (5-15); BUN 16 mg/dL (7-18); BUN/Creat Ratio 15.8 RATIO (10-20); Calcium,Total 9.3 mg/dL (8.5-10.1); Chloride 103 mmol/L (98-107); Creatinine, Serum 1.01 mg/dL (0.70-1.30); EST Glomerular Filtration Rate 77 mL/min (>60); Est Glom Filt Rate - Afr Amer 93 mL/min (>60); Globulin 4.2 g/dL (2.2-4.2); Glucose 177 mg/dL (74-106); Potassium 3.9 mmol/L (3.5-5.1); Protein, Total 7.7 g/dL (6.4-8.2); Sodium Level 139 mmol/L (136-145)
== END | disposition home or self-care (01) ==
LOC: BFHLAB 10:26
PROVIDERS: PCP Nurse Practitioner Family; Referring Provider Nurse Practitioner Family; Visit Provider Nurse Practitioner Family
DX: R10.11 Right upper quadrant pain (principal)
CPT/HCPCS: 36415; 80053; 85025

== ENCOUNTER → 2023-02-21 | Outpatient (CLI) | payer MEDICARE, OTHER, SELFPAY ==
--- NOTE | 2023-02-21 08:37 | US_ITS ---
INDICATION: ABD PAIN EXAMINATION: Ultrasound US Abdomen Complete TECHNIQUE: Dalton-scale and color Doppler imaging was performed of the abdomen. COMPARISON: FINDINGS: LIVER: There is increased echotexture. Multiple hepatic cysts are visualized measuring 1.7 x 1.8 x 1.8 and 1.9 x 2.5 x 2.0 cm in the right lobe of the liver. In the left lobe of the liver cyst measuring 1.7 x 1.9 x 2.2 cm and 1.7 x 1.4 x 1.0 cm. There is a hypoechoic focus 3.0 x 4.0 x 3.3 cm within the liver. This is seen adjacent to the gallbladder. This likely represents focal fatty sparing. Mass cannot be excluded. No intrahepatic biliary ductal dilatation. There is no free fluid. GALLBLADDER AND BILIARY TREE: No shadowing gallstone, pericholecystic fluid or gallbladder wall thickening is demonstrated. The proximal common bile duct measures 4 mm, which is within normal limits for the patient''s age. SONOGRAPHIC WAYNE''S SIGN: Negative. PANCREAS: No focal abnormality is demonstrated in the pancreas. No pancreatic ductal dilatation. Pancreatic tail not adequately visualize due to overlying bowel gas. SPLEEN: The spleen is normal in size and homogeneous in echotexture. KIDNEYS: There is no hydronephrosis. Right kidney simple cyst 0.9 x 1.2 x 1.3 cm. No shadowing calculus, or perinephric collection is demonstrated. VESSELS: Submitted longitudinal images of the intra-abdominal aorta demonstrate no gross abnormalities and are unremarkable. The IVC is patent. US/Abdomen Complete IMPRESSION: Focal fatty sparing adjacent to gallbladder. Mass considered less likely. Recommend pre and postcontrast MRI or pre and postcontrast CT for further evaluation if clinically warranted. Fatty liver. Numerous simple cysts throughout the liver in both kidneys detailed above. Electronically Signed: Francesco Razo MD at 12:42 EDT ,
== END | disposition home or self-care (01) ==
LOC: US 08:32
PROVIDERS: PCP Nurse Practitioner Family; Visit Provider Nurse Practitioner Family
DX: R10.9 Unspecified abdominal pain (principal)
CPT/HCPCS: 76700

== ENCOUNTER → 2023-03-11 | Outpatient (CLI) | payer MEDICARE, OTHER, SELFPAY ==
--- NOTE | 2023-03-11 14:31 | CT_ITS ---
EXAM: CT ABDOMEN WITHOUT AND WITH INTRAVENOUS CONTRAST CLINICAL INDICATION: RUQ PAIN, FATTY LIVER, HEPATIC CYSTS TECHNIQUE: Helically acquired images were obtained of the abdomen without and with intravenous contrast. Arterial and venous delayed phase images. This CT exam was performed using one or more of the following dose reduction techniques: automated exposure control, adjustment of the mA and/or kV according to patient size, and/or use of iterative reconstruction technique. CONTRAST: 100 CC ISOVUE 300 COMPARISON: Abdominal ultrasound, 02/21/2023 FINDINGS: LOWER THORAX: No significant abnormality. Lung bases are clear. No cardiomegaly. No significant pericardial effusion. LIVER: Nearly innumerable cysts throughout the liver, the largest in the left hepatic lobe measuring up to approximately 1.8 cm for which no follow-up is indicated. No evidence of a solid hepatic lesion. GALLBLADDER AND BILE DUCTS: No significant abnormality. No calcified gallstones. No gallbladder distention or wall edema. No intra- or extrahepatic biliary ductal dilation. PANCREAS: No significant abnormality. No focal cystic or solid mass. SPLEEN: No significant abnormality. Normal size without focal cystic or solid mass. ADRENALS: No significant abnormality. No nodules. KIDNEYS AND URETERS: Right lower pole renal cyst for which no follow-up is indicated. No hydronephrosis. STOMACH AND BOWEL: There are a few colonic diverticula without evidence of diverticulitis. No stomach or bowel distention. INTRAPERITONEAL SPACE: No significant abnormality. No ascites or other fluid collection. No free air. BONES/JOINTS: Degenerative changes in the spine. No suspicious lytic or blastic abnormality. SOFT TISSUES: No significant abnormality. No discrete abdominal wall hernia. VASCULATURE: Atherosclerosis of the aorta and its branch vessels. Abdominal aorta is non-dilated. LYMPH NODES: No enlarged lymph nodes. CT/Abdomen W/WO IV Contrast IMPRESSION: 1. Nearly innumerable cysts throughout the liver, the largest in the left hepatic lobe measuring up to approximately 1.8 cm for which no follow-up is indicated. No evidence of a solid hepatic lesion. 2. There are a few colonic diverticula without evidence of diverticulitis. 3. Right lower pole renal cyst for which no follow-up is indicated. Electronically Signed: Suraj King DO at 20:51 EST ,
== END | disposition home or self-care (01) ==
LOC: CT 14:27
PROVIDERS: PCP Nurse Practitioner Family; Referring Provider Nurse Practitioner Family; Visit Provider Nurse Practitioner Family
DX: R10.11 Right upper quadrant pain (principal); K76.0 Fatty (change of) liver, not elsewhere classified; K76.89 Other specified diseases of liver
CPT/HCPCS: 74170; Q9967

== ENCOUNTER → 2023-03-20 | Outpatient (CLI) | payer MEDICARE, OTHER, SELFPAY ==
[2023-03-20 08:47] LABS: Cholesterol 245 mg/dL (200); Ferritin 83 ng/mL (26-388); High Density Lipoprotein 67 mg/dL; Iron 122 ug/dL (65-175); Magnesium 2.4 mg/dL (1.6-2.6); PSA,Total - Annual Screen 3.48 ng/mL (0.00-4.00); Triglycerides 181 mg/dL; Very Low Density Lipoprotein 36 mg/dL (5-40)
[2023-03-20 09:30] LABS: Vitamin D,25 Hydroxy 37.6 ng/mL
[2023-03-20 09:37] LABS: Hemoglobin A1c 6.8 % (3.8-5.6)
[2023-03-20 11:13] LABS: Microalbumin,Random Urine 7.6 mg/L (NO RANGE EST.); Microalbumin:Creatinine Ratio 8.7 mg/g CRE (<30 mg/g CRE)
== END | disposition home or self-care (01) ==
PROVIDERS: PCP Family Medicine; Referring Provider Family Medicine; Visit Provider Family Medicine
DX: E61.8 Deficiency of other specified nutrient elements (principal); E11.9 Type 2 diabetes mellitus without complications; E55.9 Vitamin D deficiency, unspecified; Z12.5 Encounter for screening for malignant neoplasm of prostate
CPT/HCPCS: 80061; 82043; 82306; 82570; 82728; 83036; 83540; 83735; 84153; G0103

== ENCOUNTER → 2023-09-11 | Outpatient (CLI) | payer MEDICARE, OTHER, SELFPAY ==
[2023-09-11 17:45] LABS: Absolute Lymphocyte Count 1.85 X10^3/uL (0.83-4.51); Absolute Neutrophil Count 3.6 X10^3/uL (2.0-7.7); Basophil# 0.04 X10^3/uL; Basophil% 0.6 % (0-1); Eosinophil# 0.15 X10^3/uL; Eosinophils% 2.4 % (0-5); Hematocrit 45.5 % (40-54); Hemoglobin 15.1 g/dL (13.0-16.5); Lymphocyte # 1.85 X10^3/ul (0.83-4.51); Mean Corp Hgb Conc 33.2 g/dL (32-36); Mean Corpuscular Hgb 29.5 pg (27.0-32.0); Mean Platelet Vol. 9.8 fl (6.2-12.0); Monocyte# 0.74 X10^3/uL; Monocyte% 11.6 % (0-10); NRBC Flagged by Analyzer 0 % (0-5); Neutrophil # 3.59 X10^3/uL (2.7-7.7); Neutrophil % 56.2 % (47-70); Platelet Count 350 K/mm3 (150-450); RBC Distribution Width CV 12.8 % (11.6-14.6); RBC Distribution Width SD 41.9 fl (35.1-43.9); Red Blood Count 5.11 M/mm3 (4.6-6.2); White Blood Count 6.4 K/mm3 (4.4-11.0)
[2023-09-11 18:00] LABS: Hemoglobin A1c 6.9 % (3.8-5.6)
[2023-09-11 18:14] LABS: ALB/GLOB Ratio 0.9 RATIO (0.9-2.4); AST(SGOT) 13 U/L (15-37); Alanine Aminotransfer ALT/SGPT 20 U/L (16-61); Albumin, Serum 3.5 g/dL (3.2-5.0); Alkaline Phosphatase 91 U/L (45-117); Anion Gap 7 (5-15); BUN 20 mg/dL (7-18); BUN/Creat Ratio 20.6 RATIO (10-20); Calcium,Total 8.8 mg/dL (8.5-10.1); Chloride 104 mmol/L (98-107); Creatinine, Serum 0.97 mg/dL (0.70-1.30); EST Glomerular Filtration Rate 80 mL/min (>60); Est Glom Filt Rate - Afr Amer 97 mL/min (>60); Globulin 4.1 g/dL (2.2-4.2); Glucose 245 mg/dL (74-106); Potassium 3.6 mmol/L (3.5-5.1); Protein, Total 7.6 g/dL (6.4-8.2); Sodium Level 136 mmol/L (136-145); Troponin-I HS 37 pg/mL (3.0-78.0)
== END | disposition home or self-care (01) ==
LOC: BFHLAB 16:04
PROVIDERS: PCP Family Medicine; Visit Provider Family Medicine
DX: E11.9 Type 2 diabetes mellitus without complications (principal); I10 Essential (primary) hypertension; E78.5 Hyperlipidemia, unspecified; R53.83 Other fatigue
CPT/HCPCS: 36415; 80053; 83036; 84484; 85025

== ENCOUNTER → 2023-09-23 | Outpatient (CLI) | payer MEDICARE, OTHER, SELFPAY ==
--- NOTE | 2023-09-28 10:34 | STRESSREP ---
Stress Test Report Date: 09/23/2023 Procedure: Exercise tolerance test Indications: Chest pain Consent: Per the patient Procedure: The patient exercised on a Jc protocol for 6 minutes and 30 seconds achieving a peak heart rate of 131 bpm (90% predicted maximal heart rate) with a peak blood pressure 222/72 mmHg and a peak MET capacity of approximately 8.5 MET's. The baseline ECG demonstrated sinus rhythm. The peak exercise ECG demonstrated sinus tachycardia with about 1 to [address] depressions in the lateral leads and inferior leads. [There were no cardiac dysrhythmias pretest, during exercise, or recovery]. The functional capacity was considered normal for age. The patient had no complaint of chest discomfort during exercise or recovery. The examination was discontinued secondary to achieving target heart rate. Impression: 1. Technically adequate (percent predicted maximal heart rate greater than 85%) exercise tolerance test 2. Stress test is negative for exercise-induced chest pain. 3. Stress test test is positive for exercise-induced EKG changes of ischemia. 4. Functional capacity is normal for age This note was generated with Xplentyation software. It may contain incorrect words, spelling, and punctuation that were not noted in checking the note before signing.
== END | disposition home or self-care (01) ==
LOC: CVS 09:26
PROVIDERS: PCP Family Medicine; Referring Provider Family Medicine; Visit Provider Family Medicine
DX: R07.9 Chest pain, unspecified (principal)
CPT/HCPCS: 93017

== ENCOUNTER → 2023-11-27 | Outpatient (CLI) | payer MEDICARE, OTHER, SELFPAY ==
--- NOTE | 2023-11-27 12:39 | ECHOD_ITS ---
Reason For Study: Chest Pain Procedure This was a 2D Doppler, Color Flow transthoracic echocardiogram. Exam performed in department. Left Ventricle Normal LV size. Left ventricular systolic function is normal. The left ventricular ejection fraction is 65 %. Stage 1 diastolic dysfunction. No regional wall motion abnormalities noted. Right Ventricle Normal RV size. Normal systolic function. Atria Normal left atrium. Normal right atrium. Patent foramen ovale. Mitral Valve Normal mitral valve. Tricuspid Valve Normal tricuspid valve. Mild (1+) tricuspid valve insufficiency. Pulmonary artery systolic pressure is 34 mmHg. Aortic Valve Trisinus/trileaflet aortic valve. Pulmonic Valve Normal pulmonic valve. Great Vessels Normal aortic root. The pulmonary artery is normal size. Normal inferior vena cava. Pericardium/Pleural No pericardial effusion. Medication Performed a rapid injection of agitated mix of 9 cc saline and 1cc air to assess for atrial septal defect. MMode/2D Measurements & Calculations LVIDd: 4.3 cm IVSd: 1.0 cm Ao root diam: 3.0 cm LVIDs: 2.6 cm LVPWd: 0.99 cm RVDd: 4.1 cm FS: 40.8 % LAV(MOD-bp): 45.3 ml LVAd ap4: 26.9 cm2 SV(MOD-sp4): 49.5 ml LAV(MOD-bp) Indexed: 23.2 ml/m2 LVLd ap4: 8.3 cm LAV(MOD-sp2): 57.5 ml EDV(MOD-sp4): 72.1 ml LAV(MOD-sp4): 35.4 ml EDV(sp4-el): 74.3 ml LVAs ap4: 13.1 cm2 LVLs ap4: 6.7 cm ESV(MOD-sp4): 22.6 ml ESV(sp4-el): 21.8 ml EF(MOD-sp4): 68.6 % EF(sp4-el): 70.7 % SV(sp4-el): 52.5 ml LA A4 area: 15.3 cm2 LA dimension(2D): 3.5 cm RA A4 area: 15.6 cm2 TAPSE: 3.0 cm Time Measurements MV dec time: 0.25 sec Doppler Measurements & Calculations MV E max jose: 84.1 cm/sec Lat Peak E' Jose: 12.0 cm/sec Med Peak E' Jose: 9.0 cm/sec MV A max jose: 95.0 cm/sec E/E' lat: 7.0 E/E' med: 9.3 MV E/A: 0.89 MV dec slope: 333.7 cm/sec2 Ao V2 max: 148.4 cm/sec LV V1 max: 130.0 cm/sec Ao max P.8 mmHg LV V1 max P.8 mmHg Ao V2 mean: 97.1 cm/sec LV V1 mean P.5 mmHg Ao mean P.5 mmHg LV V1 mean: 85.9 cm/sec Ao V2 VTI: 32.1 cm LV V1 VTI: 28.4 cm AV (velocity ratio): 0.89 PA V2 max: 85.4 cm/sec TR max jose: 276.8 cm/sec TR max P.6 mmHg ECHO/Echo Complete Interpretation Summary Normal LV size. Left ventricular systolic function is normal. The left ventricular ejection fraction is 65 %. Stage 1 diastolic dysfunction. Patent foramen ovale. Pulmonary artery systolic pressure is 34 mmHg. Ordering Physician: Emil Valadez Referring Physician: Francesco Sierra Performed By: Zaria Jolly, STACEY, RVT
--- NOTE | 2023-11-27 12:40 | CT_ITS ---
STUDY: CT CHEST WITH CONTRAST REASON FOR EXAM: Male, 78 years old. Hyperlipidemia, chest pain. OVERREAD ONLY RADIATION DOSAGE (If Supplied By Facility): CTDIvol = ( 34.61 ) mGy, DLP = ( 1632.47 ) mGycm TECHNIQUE: Transaxial imaging was performed following intravenous administration of IV 67mL [id number]-[id number]. Individualized dose optimization techniques were used for this CT. COMPARISON: No relevant priors. FINDINGS: CHEST The lungs are normal. There is no demonstrated pleural abnormality. There are calcifications of the coronary arteries. Normal mediastinum. Normal hilar regions. Normal unenhanced pulmonary arteries. Normal aorta arch and descending thoracic aorta. Normal osseous structures. Scattered hepatic cysts. Fatty infiltration of the liver. CT/Limited Chest CT Cardiac Only IMPRESSION: Mild degree of the coronary artery calcification. Fatty infiltration of the liver. Multiple hepatic cysts. Electronically Signed: Gus Ng MD at 15:06 EDT ,
[2023-11-27 13:05] VITALS: BP 152/68; PULSE 63; RESP 18; O2SAT 98; BMI 26.6
[2023-11-27 13:28] VITALS: BP 143/70; PULSE 70
[2023-11-27] MEDS: Nitroglycerin SL (ED/IMG/CATH) 0.4 MG TABLET SL (13:28)
--- NOTE | 2023-11-30 11:14 | CCTA.WCONT ---
CCTA w/Cont Coronary Arteries Date of Study:: 11/27/23 Chest pain hyperlipidemia Coronary Calcium Scoring: High-resolution Computed Tomographic imaging of the chest was performed on [11/27/2023], with particular attention paid to the coronary arteries. Intravenous contrast agent was administered per protocol and images reconstructed and displayed. LEFT MAIN CORONARY ARTERY: This arose from the left coronary cusp and bifurcating to left anterior descending artery and left circumflex artery [] LEFT ANTERIOR DESCENDING CORONARY ARTERY: Left anterior descending artery was a medium size vessel giving off a first large diagonal vessel mild atherosclerotic plaquing only was noted with no high-grade stenosis. [] LEFT CIRCUMFLEX CORONARY ARTERY: Nondominant but medium size vessel with no significant obstructive atherosclerotic plaquing noted. [] RIGHT CORONARY ARTERY: Arises from the right coronary cusp with eccentric nonobstructive calcified plaque close to the ostium and a proximal plaque with mixed disease noted. No high-grade stenosis is present. [] THORACIC AORTA: Normal [] PULMONARY ARTERY: Normal CORONARY CALCIUM SCORE: Not performed Conclusion: CT angio demonstrating mild plaque noted close the origin of the right coronary artery with no high-grade stenosis noted. []
== END | disposition home or self-care (01) ==
PROVIDERS: PCP Family Medicine; Referring Provider Internal Medicine Cardiovascular Disease; Visit Provider Internal Medicine Cardiovascular Disease
DX: R07.9 Chest pain, unspecified (principal); E11.9 Type 2 diabetes mellitus without complications; I11.9 Hypertensive heart disease without heart failure; R94.39 Abnormal result of other cardiovascular function study; R53.83 Other fatigue; E78.5 Hyperlipidemia, unspecified
CPT/HCPCS: 75574; 76380; 93306; Q9967; A4216

== ENCOUNTER → 2024-04-06 | Outpatient (CLI) | payer MEDICARE, OTHER, SELFPAY ==
[2024-04-06 08:49] LABS: Absolute Lymphocyte Count 2.23 X10^3/uL (0.83-4.51); Absolute Neutrophil Count 2.9 X10^3/uL (2.0-7.7); Basophil# 0.06 X10^3/uL; Eosinophil# 0.27 X10^3/uL; Eosinophils% 4.4 % (0-5); Hematocrit 48.9 % (40-54); Hemoglobin 16.1 g/dL (13.0-16.5); Lymphocyte # 2.23 X10^3/ul (0.83-4.51); Mean Corp Hgb Conc 32.9 g/dL (32-36); Mean Corpuscular Hgb 29.3 pg (27.0-32.0); Mean Corpuscular Volume 89.1 fL (80-94); Mean Platelet Vol. 9.7 fl (6.2-12.0); Monocyte# 0.71 X10^3/uL; Monocyte% 11.5 % (0-10); NRBC Flagged by Analyzer 0 % (0-5); Neutrophil # 2.91 X10^3/uL (2.7-7.7); Neutrophil % 46.8 % (47-70); Platelet Count 353 K/mm3 (150-450); RBC Distribution Width CV 12.1 % (11.6-14.6); Red Blood Count 5.49 M/mm3 (4.6-6.2); White Blood Count 6.2 K/mm3 (4.4-11.0)
[2024-04-06 09:23] LABS: AST(SGOT) 19 U/L (15-37); Alanine Aminotransfer ALT/SGPT 21 U/L (16-61); Albumin, Serum 3.8 g/dL (3.2-5.0); Alkaline Phosphatase 98 U/L (45-117); Anion Gap 6 (5-15); BUN 11 mg/dL (7-18); BUN/Creat Ratio 10.4 RATIO (10-20); Calcium,Total 9.1 mg/dL (8.5-10.1); Chloride 105 mmol/L (98-107); Cholesterol 274 mg/dL (200); Creatinine, Serum 1.06 mg/dL (0.70-1.30); EST Glomerular Filtration Rate 72 mL/min (>60); Est Glom Filt Rate - Afr Amer 87 mL/min (>60); Glucose 165 mg/dL (74-106); High Density Lipoprotein 74 mg/dL; Potassium 4.6 mmol/L (3.5-5.1); Protein, Total 7.8 g/dL (6.4-8.2); Sodium Level 138 mmol/L (136-145); Triglycerides 122 mg/dL; Very Low Density Lipoprotein 24 mg/dL (5-40)
[2024-04-06 09:24] LABS: Microalbumin,Random Urine 12.5 mg/L (NO RANGE EST.); Microalbumin:Creatinine Ratio 21.2 mg/g CRE (<30 mg/g CRE)
[2024-04-06 09:29] LABS: PSA,Total- Diagnostic 3.32 ng/mL (0.0-4.0)
[2024-04-06 12:34] LABS: Hemoglobin A1c 7.2 % (3.8-5.6)
== END | disposition home or self-care (01) ==
LOC: LAB 08:01
PROVIDERS: Urology; PCP Family Medicine; Referring Provider Family Medicine; Visit Provider Family Medicine
DX: E11.9 Type 2 diabetes mellitus without complications (principal); E78.5 Hyperlipidemia, unspecified; R97.20 Elevated prostate specific antigen [PSA]
CPT/HCPCS: 36415; 80053; 80061; 82043; 82570; 83036; 84153; 85025

== ENCOUNTER → 2024-08-08 | Outpatient (CLI) | payer MEDICARE, OTHER, SELFPAY ==
[2024-08-08 08:20] LABS: Hemoglobin A1c 8.4 % (<=5.6)
[2024-08-08 08:22] LABS: AST(SGOT) 18 U/L (<=37); Alanine Aminotransfer ALT/SGPT 14 U/L (<=46); Albumin, Serum 4.3 g/dL (3.4-4.8); Alkaline Phosphatase 99 U/L (40-129); Cholesterol 247 mg/dL (<=200); Globulin 3.3 g/dL (2.2-4.2); High Density Lipoprotein 75 mg/dL; Low Density Lipoprotein Calc. 152 mg/dL; Protein, Total 7.6 g/dL (5.9-8.4); Total Bilirubin 0.53 mg/dL (0.00-1.30); Triglycerides 97 mg/dL; Very Low Density Lipoprotein 19 mg/dL (5-40); cholesterol:hdl ratio screen 3.28
== END | disposition home or self-care (01) ==
LOC: LAB 06:39
PROVIDERS: PCP Family Medicine; Referring Provider Family Medicine; Visit Provider Family Medicine
DX: E11.9 Type 2 diabetes mellitus without complications (principal); E78.5 Hyperlipidemia, unspecified
CPT/HCPCS: 36415; 80061; 80076; 83036

== ENCOUNTER → 2024-11-17 | Outpatient (CLI) | payer MEDICARE, OTHER, SELFPAY ==
--- OUTSIDE RECORDS SUMMARY | 2024-11-17 07:08 | XMS RPT_ITS | CCD ---
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 Francesco Sierra DO Primary Care Provider [phone] Dr. Francesco Sierra DO Attending Provider [phone] Dr. Francesco Sierra DO Referring Provider [phone] Roverto Rubio Attending Unavailable Rory, Emil Consulting Unavailable Rory, Emil Referring Unavailable Francesco Sierra Primary Care Unavailable Shilpa Acuña Attending Unavailabl e Francesco Sierra Referring Unavailable RigoFrancesco loera Primary Care Unavailable Aron Cheney Attending Unavailable Aron Cheney Referring Unavailable RigoFrancesco loera Primary Care Unavailable RigoFrancesco loera Attending Unavailable RigoFrancesco loera Primary Care Unavailable RigoFrancesco huertas Attending Unavailable RigoFrancesco Primary Care Unavailable RigoFrancesco huertas Attending Unavailable RigoFrancesco Primary Care Unavailable RigoFrancesco huertas Attending Unavailable RigoFrancesco huertas Attending Unavailable RigoFrancesco huertas Referring Unavailable RigoFrancesco huertas Primary Care Unavailable Francesco Sierra Attending Unavailable ShravanAron meyer Consulting Unavailable Francesco Sierra Referring Unavailable RigoFrancesco huertas Primary Care Unavailable Rory, Eiml Referring Unavailable Rory, Emil Attending Unavailable Rigo, Francesco Primary Care Unavailable Roverto Rubio Attending Unavailable RigoFrancesco loera Primary Care Unavailable Rory, Emil Attending Unavailable Francesco Sierra Referring Unavailable Rigo, Francesco Primary Care Unavailable Francesco Sierra Primary Care Unavailable Shilpa Acuña Attending Unavailabl e Francesco Sierra Consulting Unavailable Francesco Sierra Referring Unavailable Allergies Allergy Classification Reported Allergen(s) Allergy Type Date of Onset Reaction(s) Facility (11 sources) midazolam drug allergy 09-11-2015 [facility] Work Phone: (11 sources) morphine drug allergy 09-11-2015 [facility] Work Phone: (11 sources) ondansetron drug allergy 09-11-2015 [facility] Work Phone: (9 sources) Midazolam; Translations: [midazolam HCl] Drug Allergy 11-25-2019 Nausea [facility] (8 sources) Morphine Drug Allergy 11-25-2019 Nausea [facility] (9 sources) Ondansetron; Translations: [ondansetron HCl] Drug Allergy 11-25-2019 Other [facility] (1 source) Morphine Drug Allergy 10-22-2023 [facility] Repository Medications Current Medications Medication Drug Class(es) Dates Sig (Normalized) Sig (Original) amLODIPine 10 mg oral tablet (19 sources) Dihydropyridine Calcium Channel Robyn Start: 01-10-2014 take 1 tablet by mouth once daily Amlodipine 10 MG tablet Active 10 mg PO DAILY January 10, 2014 12:00am aspirin 81 mg delayed release oral tablet (1 source) Platelet Aggregation Inhibitor, Nonsteroidal Anti-inflammatory Drug Start: 10-22-2023 take 1 tablet by mouth once daily Aspirin 81 mg tablet,delayed release (DR/EC) Active 81 mg PO DAILY October 22, 2023 12:00am atorvastatin 10 mg oral tablet (1 source) HMG-CoA Reductase Inhibitor Start: 10-22-2023 take 1 tablet by mouth at bedtime Atorvastatin 10 mg tablet Active 10 mg PO AT BEDTIME 90 October 22, 2023 12:00am finasteride 5 mg oral tablet (19 sources) 5-alpha Reductase Inhibitor Start: 01-10-2014 take 1 tablet by mouth once daily Finasteride 5 MG tablet Active 5 mg PO DAILY January 10, 2014 12:00am Mzjz-Vgicbs-Zlmyej en-D3-C-Mn (7 sources) Start: 01-23-2021 Vgzc-Dpoizo-Zxiya gen-D3-C-Mn Active CAP PO January 23, 2021 9:08am Start: 01-23-2021 Knba-Ebvgos-Mb pgngix-O7-I-Mn Active CAP PO January 22, 2021 11:00pm Start: 01-23-2021 Fkrc-Grrlhs-Db bvyrus-D8-T-Mn Active CAP PO January 23, 2021 12:00am Skawdd-Dxh-A-Ri-Bgoguc-Waxne w (7 sources) Start: 01-23-2021 Znmcmp-Omg-V-Kr-Udekkk-Pwdvt w Active TABLET PO January 23, 2021 9:08am Start: 01-23-2021 Nqjyqq-Pki-L-M h-Wmetzo-Iduypf Active TABLET PO January 22, 2021 11:00pm Start: 01-23-2021 Phiohb-Obw-W-M v-Ydbowz-Eaglfg Active TABLET PO January 23, 2021 12:00am Qtzdqzojhqn-Fatrtlzba-Oih C-Mn (Glucosamine Chondroitin Maxstr) 500-400 mg capsule (1 source) Start: 10-12-2023 Uokujolrrvs-Xqbwzsikm-Eqd C-Mn (Glucosamine Chondroitin Maxstr) 500-400 mg capsule Active 2 NMA PO DAILY October 12, 2023 12:00am losartan potassium 50 mg oral tablet (1 source) Angiotensin 2 Receptor Robyn Start: 10-12-2023 take 1 tablet by mouth once daily Losartan 50 mg tablet Active 50 mg PO DAILY October 12, 2023 12:00am mecobalamin 1 mg chewable tablet (1 source) Start: 10-12-2023 take 1 tablet by mouth twice daily Mecobalamin (Vitamin B12) 1,000 mcg tablet,chewable Active 1000 ug PO TWICE A DAY October 12, 2023 12:00am metFORMIN hydrochloride 500 mg oral tablet (1 source) Biguanide Start: 10-12-2023 take 1 tablet by mouth twice daily Metformin 500 mg tablet Active 500 mg PO TWICE A DAY October 12, 2023 12:00am Multivitamin tablet (1 source) Start: 10-12-2023 Multivitamin tablet Active 1 {tbl} PO DAILY October 12, 2023 12:00am Completed/Discontinued Medications Medication Drug Class(es) Dates Sig (Normalized) Sig (Original) Fluad Quad (65yr up)(PF) 60 mcg (15 mcg x 4)/0.5mL IM syringe (flu vac (1 source) Start: 03-01-2021 End: 03-01-2021 Fluad Quad (65yr up)(PF) 60 mcg (15 mcg x 4)/0.5mL IM syringe (flu vac Discontinued 60 MCG IM ONCE 0.5 March 01, 2021 7:13am March 01, 2021 7:22am Gyln-Onrdrd-Xwwrr gen-D3-C-Mn 500-400-667 mg-mg-unit capsule (1 source) Start: 01-23-2021 End: 10-12-2023 Zbnf-Triigw-Poaybf en-D3-C-Mn 500-400-667 mg-mg-unit capsule Discontinued NMA PO January 23, 2021 12:00am October 12, 2023 11:51am Ndvqdw-Bjk-N-Mn-G lidia-Brunswick 500-333.3 mg tablet (1 source) Start: 01-23-2021 End: 10-12-2023 Cqvcrm-Aam-O-Mn-Gi nger-[place]runswick 500-333.3 mg tablet Discontinued {tbl} PO January 23, 2021 12:00am October 12, 2023 11:51am lisinopril 10 mg oral tablet (19 sources) Angiotensin Converting Enzyme Inhibitor Start: 01-10-2014 End: 10-12-2023 take 1 tablet by mouth once daily Lisinopril 10 MG tablet Discontinued 10 mg PO DAILY January 10, 2014 12:00am October 12, 2023 11:54am meloxicam 15 mg oral tablet (16 sources) Nonsteroidal Anti-inflammatory Drug Start: 01-23-2021 End: 10-12-2023 take 1 tablet by mouth once daily Meloxicam 15 mg tablet Discontinued 15 mg PO DAILY 30 January 23, 2021 10:18am October 12, 2023 11:51am Problems Active Problems Problem Classification Problem Date Documented Date Episodic/Chronic Diabetes mellitus without complication (3 sources) Diabetes mellitus; Translations: [Type 2 diabetes mellitus without complications] Onset: 08-12-2024 10-22-2023 Chronic Disorders of lipid metabolism (20 sources) Hyperlipidemia; 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] Onset: 09-11-2015 09-11-2015 Chronic Essential hypertension (20 sources) Hypertensive disorder; Translations: [Benign essential hypertension] Onset: 10-10-2015 10-10-2015 Chronic Hypertension with complications and secondary hypertension (4 sources) Hypertensive heart disease; Translations: [Hypertensive heart disease without heart failure] Onset: 10-22-2023 11-10-2023 Chronic Open wounds of head; neck; and trunk (8 sources) Laceration of nose; Translations: [Laceration without foreign body of nose, initial encounter] 11-26-2019 Episodic Osteoarthritis (8 sources) Osteoarthritis of left knee joint; Translations: [Unilateral primary osteoarthritis, left knee] 01-23-2021 Chronic Other connective tissue disease (7 sources) Synovial cyst of left popliteal space; Translations: [Synovial cyst of popliteal space [Michael], left knee] 01-23-2021 Episodic Other connective tissue disease (1 source) Synovial cyst of popliteal space [Michael], left knee; Translations: [Synovial cyst of left popliteal space] 10-12-2023 Episodic Other nervous system disorders (1 source) Paresthesia; Translations: [Paresthesia of skin] 10-12-2023 Episodic Other non-traumatic joint disorders (8 sources) Pain in left knee; Translations: [Left knee pain] 01-23-2021 Episodic Residual codes; unclassified (8 sources) Family history of cardiac disorder; Translations: [Family history of ischemic heart disease and other diseases of the circulatory system] 06-08-2013 Episodic Spondylosis; intervertebral disc disorders; other back problems (1 source) Backache; Translations: [Dorsalgia, unspecified] 10-12-2023 Episodic Unclassified (8 sources) Aftercare ; Translations: [Encounter for other specified surgical aftercare] Onset: 12-17-2016 12-22-2016 Past or Other Problems Problem Classification Problem Date Documented Date Episodic/Chronic Abdominal hernia (11 sources) Right inguinal hernia ; Translations: [Unilateral inguinal hernia, without obstruction or gangrene, not specified as recurrent] Onset: 10-10-2015 10-10-2015 Episodic Malaise and fatigue (15 sources) Fatigue; Translations: [Other fatigue] Onset: 09-11-2015 09-11-2015 Episodic Nonspecific chest pain (4 sources) Chest pain; Translations: [Chest pain, unspecified] Onset: 12-18-2023 11-10-2023 Episodic Other connective tissue disease (9 sources) Acquired trigger finger; Translations: [Trigger finger, left ring finger] Onset: 11-19-2016 12-05-2016 Episodic Other non-epithelial cancer of skin (9 sources) History of malignant neoplasm of skin; Translations: [Personal history of other malignant neoplasm of skin] Onset: 11-19-2016 12-11-2016 Episodic Other screening for suspected conditions (not mental disorders or infectious disease) (5 sources) Abnormal results of cardiovascular function studies; Translations: [Abnormal result of other cardiovascular function study] Onset: 10-22-2023 11-10-2023 Episodic Other skin disorders (11 sources) Actinic keratosis; Translations: [Actinic keratosis] Onset: 10-10-2015 10-10-2015 Episodic Results Test Name Value Interpretation Reference Range Facility Bilirubin directOrdered By: Francesco Sierra on 08-08-2024 Bilirubin.direct [Mass/Vol] 0.20 mg/dL 0.00-0.30 [facility] Bilirubin, totalOrdered By: Francesco Sierra on 08-08-2024 Bilirubin [Mass/Vol] 0.53 mg/dL 0.00-1.[address] [facility] Calculated very low density lipoprotein (VLDL) cholesterol measurementOrdered By: Francesco Sierra on 08-08-2024 VLDL Cholesterol 19 mg/dL 5-40 [facility] Hemoglobin A1con 08-08-2024 HbA1c (Bld) [Mass fraction] 8.4 % Normal <=5.6 [facility] Comment on above: Performed By: #### L 500.4100, L501.9985, L500.3400 ####[facility] [address] [place], [place], [id number] Hemoglobin A1c percentageOrd ered By: Francesco Sierra on 08-08-2024 HbA1c (Bld) [Mass fraction] 8.4 % >5.7 [facility] LDL calc ser/plasOrdered By: Francesco Sierra on 08-08-2024 LDL Cholesterol, Calculated 152 mg/dL [facility] Comment on above: Brnrjnizkb=906-387 m g/dL & Higher Pxvf=818 mg/dL or greater Laboratory - Chemistry and C hemistry - challengeOrdered By: Francesco Sierra on 08-08-2024 AST [Catalytic activity/Vol] 18 U/L <38 [facility] Lipid Profileon 08-08-2024 CHOL:HDL 3.28 Normal [facility] Comment on above: Performed By: #### L 500.4100, L501.9985, L500.3400 ####[facility] [address] [place], [address] Cholesterol [Mass/Vol] 247 mg/dL High <=200 [facility] Comment on above: Result Comment: Chol esterol level, Desirable <200 mg/dL Borderline high cholesterol 200-239 mg/dL High cholesterol >=240 mg/dL Recommendations of the NCEP Adult Treatment Panel for the following risk-cutoff thresholds for the [place] population. Performed By: #### L 500.4100, L501.9985, L500.3400 ####[facility] [address] [place], [address] Cholesterol in HDL [Mass/Vol] 75 mg/dL Normal [facility] Comment on above: Result Comment: Cayla onal Cholesterol Education Program (NCEP) guidelines: <40 mg/dL: Low HDL-cholesterol (major risk factor for CHD) >= 60 mg/dL: High HDL-cholesterol (negative risk factor for CHD) HDL-cholesterol is affected by a number of factors, e.g. smoking, exercise, hormones, sex and age. Performed By: #### L 500.4100, L501.9985, L500.3400 ####[facility] [address] [place], [address] Cholesterol in LDL [Mass/Vol] 152 mg/dL Normal [facility] Comment on above: Result Comment: Bord pywdns=605-635 mg/dL Higher Yumo=724 mg/dL or greater Performed By: #### L 500.4100, L501.9985, L500.3400 ####[facility] [address] [place], [address] Cholesterol in VLDL [Mass/Vol] 19 mg/dL Normal 5-40 [facility] Comment on above: Performed By: #### L 500.4100, L501.9985, L500.3400 ####[facility] [address] [place], [address] Triglyceride [Mass/Vol] 97 mg/dL Normal [facility] Comment on above: Result Comment: The drugs N-Acetylcysteine and Metamizole may falsely depress this assay. Normal range: <150 mg/dL Borderline High: 150-199 mg/dL High: 200-499 mg/dL Very High: >500 mg/dL Performed By: #### L 500.4100, L501.9985, L500.3400 ####[facility] [address] [place], [address] Liver Profileon 08-08-2024 Albumin [Mass/Vol] 4.3 g/dL Normal 3.4-4.8 [facility] Comment on above: Performed By: #### L 500.4100, L501.9985, L500.3400 ####[facility] [address] [place], [address] ALK PHOS 99 U/L Normal 40-129 [facility] Comment on above: Performed By: #### L 500.4100, L501.9985, L500.3400 ####[facility] [address] [place], [address] ALT [Catalytic activity/Vol] 14 U/L Normal <=46 [facility] Comment on above: Performed By: #### L 500.4100, L501.9985, L500.3400 ####[facility] [address] [place], [address] AST [Catalytic activity/Vol] 18 U/L Normal <=37 [facility] Comment on above: Performed By: #### L 500.4100, L501.9985, L500.3400 ####[facility] [address] [place], [address] Bilirubin [Mass/Vol] 0.53 mg/dL Normal 0.00-1.[address] [facility] Comment on above: Performed By: #### L 500.4100, L501.9985, L500.3400 ####[facility] [address] [place], [address] Bilirubin.direct [Mass/Vol] 0.20 mg/dL Normal 0.00-0.30 [facility] Comment on above: Performed By: #### L 500.4100, L501.9985, L500.3400 ####[facility] [address] [place], [address] Globulin (S) [Mass/Vol] 3.3 g/dL Normal 2.2-4.2 [facility] Comment on above: Performed By: #### L 500.4100, L501.9985, L500.3400 ####[facility] [address] [place], [address] T PROT 7.6 g/dL Normal 5.9-8.4 [facility] Comment on above: Performed By: #### L 500.4100, L501.9985, L500.3400 ####[facility] [address] [place], [address] Screening total cholesterol/ high density lipoprotein (HDL) cholesterol ratioOrdered By: Francesco Sierra on 08-08-2024 Cholesterol.total/Cho lesterol in HDL [Mass ratio] 3.28 {ratio} [facility] Serum globulin measurementOr dered By: Francesco Sierra on 08-08-2024 Globulin (S) [Mass/Vol] 3.3 g/dL 2.2-4.2 [facility] Serum or plasma alanine figueroa otransferase (ALT) measurementOrdered By: Francesco Sierra on 08-08-2024 ALT [Catalytic activity/Vol] 14 U/L <47 [facility] Serum or plasma albumin faizan urement (mass/volume)Ordered By: Francesco Sierra on 08-08-2024 Albumin [Mass/Vol] 4.3 g/dL 3.4-4.8 [facility] Serum or plasma alkaline damien sphatase measurementOrdered By: Francesco Sierra on 08-08-2024 ALP [Catalytic activity/Vol] 99 U/L 40-129 [facility] Serum or plasma cholesterol in HDL measurement (mass/volume)Ordered By: Francesco Sierra on 08-08-2024 Cholesterol in HDL [Mass/Vol] 75 mg/dL >40 [facility] Comment on above: National Cholesterol Education Program (NCEP) guidelines:<40 mg/dL: Low HDL-cholesterol (major risk factor for CHD)>= 60 mg/dL: High HDL-cholesterol (negative risk factor for CHD)HDL-cholesterol is affected by a number of factors, e.g. smoking, exercise, hormones, sex and age. Serum or plasma cholesterol measurement (mass/volume)Ordered By: Francesco Sierra on 08-08-2024 Cholesterol [Mass/Vol] 247 mg/dL High <201 [facility] Comment on above: Cholesterol level, D esirable <200 mg/dLBorderline high cholesterol 200-239 mg/dLHigh cholesterol >=240 mg/dLRecommendations of the NCEP Adult Treatment Panel for the following risk-cutoff thresholds for the [place] population. Total proteinOrdered By: Elena Sierra on 08-08-2024 Protein [Mass/Vol] 7.6 g/dL 5.9-8.4 [facility] Triglycerides measurementOrd ered By: Francesco Sierra on 08-08-2024 Triglyceride [Mass/Vol] 97 mg/dL <199 [facility] Comment on above: The drugs N-Acetylcy steine and Metamizole may falsely depress this assay. Normal range: <150 mg/dLBorderline High: 150-199 mg/dLHigh: 200-499 mg/dLVery High: >500 mg/dL CBC W/Diff, Automatedon 12-0 Absolute Lymph 2.23 X10 3/uL Normal 0.83-4.51 [facility] Comment on above: Performed By: #### L 500.4050, L502.0250, L500.4100, L100.0100, L501.9985 ####[facility] [address] [place], [address] Absolute Neut 2.9 X10 3/uL Normal 2.0-7.7 [facility] Comment on above: Performed By: #### L 500.4050, L502.0250, L500.4100, L100.0100, L501.9985 ####[facility] [address] [place], [address] Basophils/100 WBC (Bld) 1.0 % Normal 0-1 [facility] Comment on above: Performed By: #### L 500.4050, L502.0250, L500.4100, L100.0100, L501.9985 ####[facility] [address] [place], [address] Eosinophils/100 WBC (Bld) 4.4 % Normal 0-5 [facility] Comment on above: Performed By: #### L 500.4050, L502.0250, L500.4100, L100.0100, L501.9985 ####[facility] [address] [place], [address] Erythrocyte distribution width (RBC) [Ratio] 12.1 % Normal 11.6-14.6 [facility] Comment on above: Performed By: #### L 500.4050, L502.0250, L500.4100, L100.0100, L501.9985 ####[facility] [address] [place], [address] Hematocrit (Bld) [Volume fraction] 48.9 % Normal 40-54 [facility] Comment on above: Performed By: #### L 500.4050, L502.0250, L500.4100, L100.0100, L501.9985 ####[facility] [address] [place], [address] Hemoglobin (Bld) [Mass/Vol] 16.1 g/dL Normal 13.0-16.5 [facility] Comment on above: Performed By: #### L 500.4050, L502.0250, L500.4100, L100.0100, L501.9985 ####[facility] [address] [place], [address] IG% 0.300 Normal 0.0-0.9 [facility] Comment on above: Result Comment: IG% - Immature Granulocytes (promyelocytes, myelocytes and metamyelocytes) > 1% indicates that a LEFT SHIFT is Present. Performed By: #### L 500.4050, L502.0250, L500.4100, L100.0100, L501.9985 ####[facility] [address] [place], [address] Lymphocytes/100 WBC (Bld) 36.0 % Normal 19-41 [facility] Comment on above: Performed By: #### L 500.4050, L502.0250, L500.4100, L100.0100, L501.9985 ####[facility] [address] [place], [address] MCH (RBC) [Entitic mass] 29.3 pg Normal 27.0-32.0 [facility] Comment on above: Performed By: #### L 500.4050, L502.0250, L500.4100, L100.0100, L501.9985 ####[facility] [address] [place], [address] MCHC (RBC) [Mass/Vol] 32.9 g/dL Normal 32-36 [facility] Comment on above: Performed By: #### L 500.4050, L502.0250, L500.4100, L100.0100, L501.9985 ####[facility] [address] [place], [address] MCV (RBC) [Entitic vol] 89.1 fL Normal 80-94 [facility] Comment on above: Performed By: #### L 500.4050, L502.0250, L500.4100, L100.0100, L501.9985 ####[facility] [address] [place], [address] Monocytes/100 WBC (Bld) 11.5 % High 0-10 [facility] Comment on above: Performed By: #### L 500.4050, L502.0250, L500.4100, L100.0100, L501.9985 ####[facility] [address] [place], [address] Neutrophils/100 WBC (Bld) 46.8 % Low 47-70 [facility] Comment on above: Performed By: #### L 500.4050, L502.0250, L500.4100, L100.0100, L501.9985 ####[facility] [address] [place], [address] Nucleated RBC (Bld) [#/Vol] 0 10*3/uL Normal 0-5 [facility] Comment on above: Performed By: #### L 500.4050, L502.0250, L500.4100, L100.0100, L501.9985 ####[facility] [address] [place], [address] Platelet mean volume (Bld) [Entitic vol] 9.7 fL Normal 6.2-12.0 [facility] Comment on above: Performed By: #### L 500.4050, L502.0250, L500.4100, L100.0100, L501.9985 ####[facility] [address] [place], [address] Platelets (Bld) [#/Vol] 353 10*3/uL Normal 150-450 [facility] Comment on above: Performed By: #### L 500.4050, L502.0250, L500.4100, L100.0100, L501.9985 ####[facility] [address] [place], [address] RBC (Bld) [#/Vol] 5.49 10*6/uL Normal 4.6-6.2 [facility] Comment on above: Performed By: #### L 500.4050, L502.0250, L500.4100, L100.0100, L501.9985 ####[facility] [address] [place], [address] RDW SD 40.0 fl Normal 35.1-43.9 [facility] Comment on above: Performed By: #### L 500.4050, L502.0250, L500.4100, L100.0100, L501.9985 ####[facility] [address] [place], [address] WBC (Bld) [#/Vol] 6.2 10*3/uL Normal 4.4-11.0 [facility] Comment on above: Performed By: #### L 500.4050, L502.0250, L500.4100, L100.0100, L501.9985 ####[facility] [address] [place], [address] Comprehensive Metabolic Prof [facility] 04-06-2024 Albumin [Mass/Vol] 3.8 g/dL Normal 3.2-5.0 [facility] Comment on above: Performed By: #### L 500.4050, L502.0250, L500.4100, L100.0100, L501.9985 ####[facility] [address] [place], [address] Albumin/Globulin [Mass ratio] 1.0 {ratio} Normal 0.9-2.4 [facility] Comment on above: Performed By: #### L 500.4050, L502.0250, L500.4100, L100.0100, L501.9985 ####[facility] [address] [place], [address] ALK P 98 U/L Normal 45-117 [facility] Comment on above: Performed By: #### L 500.4050, L502.0250, L500.4100, L100.0100, L501.9985 ####[facility] [address] [place], [address] ALT [Catalytic activity/Vol] 21 U/L Normal 16-61 [facility] Comment on above: Performed By: #### L 500.4050, L502.0250, L500.4100, L100.0100, L501.9985 ####[facility] [address] [place], [address] AST [Catalytic activity/Vol] 19 U/L Normal 15-37 [facility] Comment on above: Performed By: #### L 500.4050, L502.0250, L500.4100, L100.0100, L501.9985 ####[facility] [address] [place], [address] Bilirubin [Mass/Vol] 0.50 mg/dL Normal 0.20-1.[address] [facility] Comment on above: Result Comment: For patients on eltrombopag therapy, use of Dimension [place] TBIL is not recommended. Performed By: #### L 500.4050, L502.0250, L500.4100, L100.0100, L501.9985 ####[facility] [address] [place], [address] BUN/CRE 10.4 RATIO Normal 10-20 [facility] Comment on above: Performed By: #### L 500.4050, L502.0250, L500.4100, L100.0100, L501.9985 ####[facility] [address] [place], [address] CA,Total 9.1 mg/dL Normal 8.5-10.1 [facility] Comment on above: Performed By: #### L 500.4050, L502.0250, L500.4100, L100.0100, L501.9985 ####[facility] [address] [place], [address] Chloride [Moles/Vol] 105 mmol/L Normal 98-[address] [facility] Comment on above: Performed By: #### L 500.4050, L502.0250, L500.4100, L100.0100, L501.9985 ####[facility] [address] [place], [address] CO2 [Moles/Vol] 27.0 mmol/L Normal 21.0-32.0 [facility] Comment on above: Performed By: #### L 500.4050, L502.0250, L500.4100, L100.0100, L501.9985 ####[facility] [address] [place], [address] Creatinine [Mass/Vol] 1.06 mg/dL Normal 0.70-1.30 [facility] [facility] Comment on above: Result Comment: The validity of the calculated GFR GFRAA in patients over 70 years has not been determined. Clinical correlation is essential. Performed By: #### L 500.4050, L502.0250, L500.4100, L100.0100, L501.9985 ####[facility] [address] [place], [address] EST GFR - AA 87 mL/min Normal >60 [facility] Comment on above: Result Comment: Afri can Irish GFR Calc Performed By: #### L 500.4050, L502.0250, L500.4100, L100.0100, L501.9985 ####[facility] [address] [place], [address] GAP 6 Normal 5-15 [facility] Comment on above: Performed By: #### L 500.4050, L502.0250, L500.4100, L100.0100, L501.9985 ####[facility] [address] [place], [address] GFR/1.73 sq M.predicted among non-blacks MDRD (S/P/Bld) [Vol rate/Area] 72 mL/min/{1.73_m2} Normal >60 [facility] Comment on above: Result Comment: Non- GFR Calc Performed By: #### L 500.4050, L502.0250, L500.4100, L100.0100, L501.9985 ####[facility] [address] [place], [address] Globulin (S) [Mass/Vol] 4.0 g/dL Normal 2.2-4.2 [facility] Comment on above: Performed By: #### L 500.4050, L502.0250, L500.4100, L100.0100, L501.9985 ####[facility] [address] [place], [address] Glucose [Mass/Vol] 165 mg/dL High 74-106 [facility] Comment on above: Result Comment: Fast ing Glucose result greater than or equal to 126 mg/dL suggests DIABETES MELLITUS per A.D.A. criteria. Performed By: #### L 500.4050, L502.0250, L500.4100, L100.0100, L501.9985 ####[facility] [address] [place], [address] Potassium [Moles/Vol] 4.6 mmol/L Normal 3.5-5.1 [facility] Comment on above: Performed By: #### L 500.4050, L502.0250, L500.4100, L100.0100, L501.9985 ####[facility] [address] [place], [address] Sodium [Moles/Vol] 138 mmol/L Normal 136-145 [facility] Comment on above: Performed By: #### L 500.4050, L502.0250, L500.4100, L100.0100, L501.9985 ####[facility] [address] [place], [address] T PROT 7.8 g/dL Normal 6.4-8.2 [facility] Comment on above: Performed By: #### L 500.4050, L502.0250, L500.4100, L100.0100, L501.9985 ####[facility] [address] [place], [address] Urea nitrogen [Mass/Vol] 11 mg/dL Normal 7-18 [facility] Comment on above: Performed By: #### L 500.4050, L502.0250, L500.4100, L100.0100, L501.9985 ####[facility] [address] [place], [address] Hemoglobin A1con 04-06-2024 HbA1c (Bld) [Mass fraction] 7.2 % High 3.8-5.6 [facility] Comment on above: Result Comment: Norm al < 5.7 % Prediabetic 5.7 - 6.4 % Diabetic >or= 6.5 % Please note range changes. Performed By: #### L 500.4050, L502.0250, L500.4100, L100.0100, L501.9985 ####[facility] [address] [place], [address] Lipid Profileon 04-06-2024 Cholesterol [Mass/Vol] 274 mg/dL High 200 [facility] Comment on above: Result Comment: <200 mg/dL Desirable 200-240 mg/dL Borderline >240 mg/dL High Risk Performed By: #### L 500.4050, L502.0250, L500.4100, L100.0100, L501.9985 ####[facility] [address] [place], [address] Cholesterol in HDL [Mass/Vol] 74 mg/dL Normal [facility] Comment on above: Result Comment: The drugs N-Acetylcysteine and Metamizole may falsely depress this assay. Reference Range HDL <40 mg/dL Low HDL Cholesterol HDL >or= 60 mg/dL High HDL Cholesterol Performed By: #### L 500.4050, L502.0250, L500.4100, L100.0100, L501.9985 ####[facility] [address] [place], [address] Cholesterol in LDL [Mass/Vol] 176 mg/dL High 0-130 [facility] Comment on above: Performed By: #### L 500.4050, L502.0250, L500.4100, L100.0100, L501.9985 ####[facility] [address] [place], [address] Cholesterol in VLDL [Mass/Vol] 24 mg/dL Normal 5-40 [facility] Comment on above: Performed By: #### L 500.4050, L502.0250, L500.4100, L100.0100, L501.9985 ####[facility] [address] [place], [address] Triglyceride [Mass/Vol] 122 mg/dL Normal [facility] Comment on above: Result Comment: The drugs N-Acetylcysteine and Metamizole may falsely depress this assay. Serum Triglycerides Reference Interval Normal <150 mg/dL Borderline high 150 - 199 mg/dL High 200 - 499 mg/dL Very High > or = 500 mg/dL Performed By: #### L 500.4050, L502.0250, L500.4100, L100.0100, L501.9985 ####[facility] [address] [place], [address] Microalb:Creat Ratio,Random URon 04-06-2024 Creatinine [Mass/Vol] 59.00 mg/dL Normal NO RAN GE EST. [facility] Comment on above: Performed By: #### L 500.4050, L502.0250, L500.4100, L100.0100, L501.9985 ####[facility] [address] [place], [address] MALB:CRE 21.2 mg/g CRE Normal <30 mg/g CRE [facility] Comment on above: Performed By: #### L 500.4050, L502.0250, L500.4100, L100.0100, L501.9985 ####[facility] [address] [place], [address] MICROALBUMIN,UR 12.5 mg/L Normal NO RANGE EST. [facility] Comment on above: Performed By: #### L 500.4050, L502.0250, L500.4100, L100.0100, L501.9985 ####[facility] [address] [place], [address] PSA,Total- Diagnosticon 12-0 PSA, DIAGNOSTIC 3.32 ng/mL Normal 0.0-4.0 [facility] Comment on above: Result Comment: This test was performed using the TPSA assay method for the [employer] chemistry system. Values obtained with different assay methods cannot be used interchangably. When changing PSA assays in the course of monitoring a patient, additional sequential testing should be carried out to confirm baseline values. Performed By: #### L 501.9940 #### [facility] [address] [place], [address] Coronary Angiography CTon Coronary Angiography CT [facility] Imaging Services [address] [place] [address] 11/30/23 1114 MR#: [id number] Acct: [id number] Name: AROLDO NEVILLE Rep #: [id number] : 1945 78 From: Roverto Rubio MD PCP: Dr. Francesco Sierra DO Status:REG CLI Y Location: CVS CCTA w/Cont Coronary Arteries Date of Study:: 11/27/23 Chest pain hyperlipidemia Coronary Calcium Scoring: High-resolution Computed Tomographic imaging of the chest was performed on [11/27/2023], with particular attention paid to the coronary arteries. Intravenous contrast agent was administered per protocol and images reconstructed and displayed. LEFT MAIN CORONARY ARTERY: This arose from the left coronary cusp and bifurcating to left anterior descending artery and left circumflex artery [] LEFT ANTERIOR DESCENDING CORONARY ARTERY: Left anterior descending artery was a medium size vessel giving off a first large diagonal vessel mild atherosclerotic plaquing only was noted with no high- grade stenosis. [] LEFT CIRCUMFLEX CORONARY ARTERY: Nondominant but medium size vessel with no significant obstructive atherosclerotic plaquing noted. [] RIGHT CORONARY ARTERY: Arises from the right coronary cusp with eccentric nonobstructive calcified plaque close to the ostium and a proximal plaque with mixed disease noted. No high-grade stenosis is present. [] THORACIC AORTA: Normal [] PULMONARY ARTERY: Normal CORONARY CALCIUM SCORE: Not performed Conclusion: CT angio demonstrating mild plaque noted close the origin of the right coronary artery with no high- grade stenosis noted. [] 11/30/23 1117 Date Roverto Rubio MD Cosigner Signature (if applicable): Date CC: Dr. Emil Valadez MD; Dr. Roverto Rubio MD; Dr. Francesco Sierra DO Signed Normal [facility] Echo Completeon 11-27-2023 Echo Complete [facility] Cardiovascular Services [address] [place] [address] Echo Complete 11/27/23 1354 MR#: [id number] Acct: [id number] Name: AROLDO NEVILLE Rep #: [id number] : 1945 78 From: Roverto Rubio MD Attending Dr: Dr. Emil Valadez MD Status: REG CLI Ordering Dr: Emil Valadez MD Date: 11/27/23 Location: [facility] Sex: M C Admitted: Reason For Study: Chest Pain Procedure This was a 2D Doppler, Color Flow transthoracic echocardiogram. Exam performed in department. Left Ventricle Normal LV size. Left ventricular systolic function is normal. The left ventricular ejection fraction is 65 %. Stage 1 diastolic dysfunction. No regional wall motion abnormalities noted. Right Ventricle Normal RV size. Normal systolic function. Atria Normal left atrium. Normal right atrium. Patent foramen ovale. Mitral Valve Normal mitral valve. Tricuspid Valve Normal tricuspid valve. Mild (1+) tricuspid valve insufficiency. Pulmonary artery systolic pressure is 34 mmHg. Aortic Valve Trisinus/trileaflet aortic valve. Pulmonic Valve Normal pulmonic valve. Great Vessels Normal aortic root. The pulmonary artery is normal size. Normal inferior vena cava. Pericardium/Pleural No pericardial effusion. Medication Performed a rapid injection of agitated mix of 9 cc saline and 1cc air to assess for atrial septal defect. MMode/2D Measurements Calculations LVIDd: 4.3 cm IVSd: 1.0 cm Ao root diam: 3.0 cm LVIDs: 2.6 cm LVPWd: 0.99 cm RVDd: 4.1 cm FS: 40.8 % LAV(MOD-bp): 45.3 ml LVAd ap4: 26.9 cm2 SV(MOD-sp4): 49.5 ml LAV(MOD-bp) Indexed: 23.2 ml/m2 LVLd ap4: 8.3 cm LAV(MOD-sp2): 57.5 ml EDV(MOD-sp4): 72.1 ml LAV(MOD-sp4): 35.4 ml EDV(sp4-el): 74.3 ml LVAs ap4: 13.1 cm2 LVLs ap4: 6.7 cm ESV(MOD-sp4): 22.6 ml ESV(sp4-el): 21.8 ml EF(MOD-sp4): 68.6 % EF(sp4-el): 70.7 % SV(sp4-el): 52.5 ml LA A4 area: 15.3 cm2 LA dimension(2D): 3.5 cm RA A4 area: 15.6 cm2 TAPSE: 3.0 cm Time Measurements MV dec time: 0.25 sec Doppler Measurements Calculations MV E max jose: 84.1 cm/sec Lat Peak E' Jose: 12.0 cm/sec Med Peak E' Jose: 9.0 cm/sec MV A max jose: 95.0 cm/sec E/E' lat: 7.0 E/E' med: 9.3 MV E/A: 0.89 MV dec slope: 333.7 cm/sec2 Ao V2 max: 148.4 cm/sec LV V1 max: 130.0 cm/sec Ao max P.8 mmHg LV V1 max P.8 mmHg Ao V2 mean: 97.1 cm/sec LV V1 mean P.5 mmHg Ao mean P.5 mmHg LV V1 mean: 85.9 cm/sec Ao V2 VTI: 32.1 cm LV V1 VTI: 28.4 cm AV (velocity ratio): 0.89 PA V2 max: 85.4 cm/sec TR max jose: 276.8 cm/sec TR max P.6 mmHg ECHO/Echo Complete Interpretation Summary Normal LV size. Left ventricular systolic function is normal. The left ventricular ejection fraction is 65 %. Stage 1 diastolic dysfunction. Patent foramen ovale. Pulmonary artery systolic pressure is 34 mmHg. Ordering Physician: Emil Valadez Referring Physician: Francesco Sierra Performed By: Zaria Jolly, STACEY, RVT 12/03/23951 Date Roverto Rubio MD CC: Dr. Emil Valadez MD; Dr. Francesco Sierra DO Date Dictated: 11/27/23 1354 Date Transcribed: 12/03/23951 Supervisor Malted Milk: Signed [facility] Limited Chest CT Cardiac Onl yon 11-27-[address] Cardiac Only [facility] Imaging Services [address] [place], [place] [address] Limited Chest CT Cardiac Only MR#: [id number] Acct: [id number] Name: AROLDO NEVILLE Rep #: [id number] : 1945 M 78 From: Gus harman MD PCP: Dr. Francesco Sierra, DO Status: REG CLI Study: Limited Chest CT Cardiac Only Date of Exam: Exam# [id number] Ordering [place]: [place] [id number] STUDY: CT CHEST WITH CONTRAST REASON FOR EXAM: Male, 78 years old. Hyperlipidemia, chest pain. OVERREAD ONLY RADIATION DOSAGE (If Supplied By Facility): CTDIvol = ( 34.61 ) mGy, DLP = ( 1632.47 ) mGycm TECHNIQUE: Transaxial imaging was performed following intravenous administration of IV 67mL [id number]-[id number]. Individualized dose optimization techniques were used for this CT. COMPARISON: No relevant priors. FINDINGS: CHEST The lungs are normal. There is no demonstrated pleural abnormality. There are calcifications of the coronary arteries. Normal mediastinum. Normal hilar regions. Normal unenhanced pulmonary arteries. Normal aorta arch and descending thoracic aorta. Normal osseous structures. Scattered hepatic cysts. Fatty infiltration of the liver. CT/Limited Chest CT Cardiac Only IMPRESSION: Mild degree of the coronary artery calcification. Fatty infiltration of the liver. Multiple hepatic cysts. Electronically Signed: Gus Ng MD at 15:06 EDT , CC: Dr. Emil Valadez MD; Dr. Francesco Sierra DO Supervisor Malted Milk: Signed Normal [facility] 12 Lead EKG performed by [facility] on 10-22-2023 12 Lead EKG performed by [facility] [address] [place] [address] 12 Lead EKG performed by [facility] 10/22/23 0949 MR#: [id number] Acct: [id number] Name: AROLDO NEVILLE Rep #: [id number] : 1945 77 From: Emil Valadez MD Attending Dr: Dr. Emil Valadez MD Status: DEP AMB Ordering Dr: Emil Valadez MD Date: 10/22/23 Location: [facility] Sex: M C Admitted: BMS/12 Lead EKG performed by [facility] ECG Report Interpretation ---Sinus Rhythm WITHIN NORMAL LIMITSElectronically signed on 05/30/2024 at 10:[address] Emil Valadez [employer] Software Version 8610 05/30/24 1014 Date Emil Valadez MD CC: Dr. Francesco Sierra, Date Dictated: 10/22/23948 Date Transcribed: 10/22/23948 Supervisor Malted Milk: AR Signed Normal [facility] Cardiology Visit Reporton Cardiology Visit Report [facility] [address] [place] [address] OFFICE VISIT Date of Service: 10/22/23 MR#: [id number] Acct: [id number] Name: AROLDO NEVILLE Rep #: [id number] : 1945 Provider: Dr. Emil Valadez MD Age/Sex: 77/M Location: [facility] Status: Signed [facility] History of Present Illness Details: This gentleman has past medical history significant for hypertension, diabetes mellitus and dyslipidemia. According to the patient, few weeks ago, he had intermittent anterior chest discomfort. According to him, he would notice it at rest. Last for about an hour or 2 at a time. No associated shortness of breath or diaphoresis. No precipitating factors identified. No radiation to the arm neck or jaw. According to the patient, the discomfort would get better with physical exertion. His primary care physician ordered an exercise stress test for the patient. He walked on the treadmill according to the Jc protocol for little over 6 minutes. No angina was reported. However ST segment changes suggestive of ischemia were reported. Per patient, he has not been having his chest pain symptoms over the last 1 month. Intake Vital Signs 01/23/21 09:17 10/22/23 09:38 Height 5 ft 9 in 5 ft 9 in Weight: 180 lb BMI 26.6 BP 136/73 H Blood Pressure Location Lt brachial Position Sitting Respiration 16 Pulse 70 Pulse Source Monitor Intake Visit Reasons: ABN STRESS ([facility] Principal Strategist Required: No Accompanied by: Self Is patient in pain?: No Allergies ondansetron HCl (From Zofran (as hydrochloride)) Allergy (Verified 10/22/23 09:40) Other midazolam HCl (From Versed) Adverse Reaction (Verified 10/22/23 09:40) Nausea morphine Adverse Reaction (Verified 10/22/23 09:40) Nausea Medications ???Medication ???Instructions ???Recorded ???Confirmed ???Type amlodipine 10 mg tablet 10 mg PO DAILY 01/10/14 10/22/23 History finasteride 5 mg tablet 5 mg PO DAILY 01/10/14 10/22/23 History sqckvqceqdp-bexibhmbx-n it C-Mn 500 2 cap PO DAILY 10/12/23 10/12/23 History mg-400 mg capsule (Glucosamine Chondroitin Maximum Strength) losartan 50 mg tablet 50 mg PO DAILY 10/12/23 10/22/23 History mecobalamin (vitamin B12) 1,000 1,000 mcg PO BID 10/12/23 10/12/23 History mcg chewable tablet metformin 500 mg tablet 500 mg PO BID 10/12/23 10/22/23 History multivitamin 1 tab PO DAILY 10/12/23 10/12/23 History PFSH Medical History History of trigger finger Cough Paresthesia Back pain Fatty liver Vitamin B12 deficiency Prostatic intraepithelial neoplasia Right inguinal hernia Fatigue RLS (restless legs syndrome) GERD (gastroesophageal reflux disease) Hyperlipidemia Type II diabetes mellitus BPH loc w urin obs/LUTS Chest pain Benign essential hypertension Familial combined hyperlipidemia Family history of heart disease Left knee pain Osteoarthritis of left knee Synovial cyst of popliteal space [Michael], left knee Enlarged prostate Hx of primary hypertension Surgical History Hx of hernia repair Hx of arthroscopy of left knee History of carpal tunnel release Family History Brother Heart disease CAD (coronary artery disease) Mother CAD (coronary artery disease) Other Hyperlipidemia Hypertension Social History Smoking Status: Never smoker alcohol intake: never substance use type: does not use caffeine: Yes Type: coffee ROS Const Const: Positive for fatigue and difficulty sleeping; Negative for weakness, headache(s), frequent falls or excessive sweating Eyes Eyes: Negative for loss of peripheral vision, transient loss of vision, blurry vision, double vision or tunnel vision ENT ENT: Positive for balance problems; Negative for headache(s), dizziness or Nosebleed/epistaxis Cardio Chest Pain: No Palpitations: No Edema: None Muscle aches with walking: None Resp Respiratory: Negative for SOB with activity, SOB at rest, SOB orthopnea SOB lying down, Cough or paroxysmal nocturnal dyspnea GI GI: Negative nausea, vomiting, heartburn or black,tarry stools : Positive for frequent nighttime urination/ nocturia; Negative for hematuria Musc Musc: Positive for joint pain and balance problems; Negative for muscle aches/ myalgia or muscle weakness Skin Skin: Negative non-healing lesions, rash or unusual bruising Neuro Neuro: Positive for lightheadedness, near syncope and vertigo; Negative for dizziness, syncope, frequent falls, headache(s), weakness, blurry vision, double vision or lack of coordination Rich Hematologic/Lymphatic: Negative for easy bleeding or e (more content not included)... Normal [facility] Stress Reporton 09-28-2023 Stress Report [facility] Cardiovascular Services [address] [place] [address] MR#: [id number] Acct: [id number] Name: AROLDO NEVILLE Rep #: [id number] : 1945 77 From: Shilpa Acuña MD Primary Care: Dr. Francesco Sierra, Status: REG CLI Referring Dr: Francesco Sierra DO Sex: M C Stress Test Report Date: 09/23/2023 Procedure: Exercise tolerance test Indications: Chest pain Consent: Per the patient Procedure: The patient exercised on a Jc protocol for 6 minutes and 30 seconds achieving a peak heart rate of 131 bpm (90% predicted maximal heart rate) with a peak blood pressure 222/72 mmHg and a peak MET capacity of approximately 8.5 MET's. The baseline ECG demonstrated sinus rhythm. The peak exercise ECG demonstrated sinus tachycardia with about 1 to [address] depressions in the lateral leads and inferior leads. [There were no cardiac dysrhythmias pretest, during exercise, or recovery]. The functional capacity was considered normal for age. The patient had no complaint of chest discomfort during exercise or recovery. The examination was discontinued secondary to achieving target heart rate. Impression: 1. Technically adequate (percent predicted maximal heart rate greater than 85%) exercise tolerance test 2. Stress test is negative for exercise-induced chest pain. 3. Stress test test is positive for exercise-induced EKG changes of ischemia. 4. Functional capacity is normal for age This note was generated with [employer] software. It may contain incorrect words, spelling, and punctuation that were not noted in checking the note before signing. 09/28/23 1039 Date Shilpa Acuña MD CC: Dr. Francesco Sierra, DO Date Dictated: 09/28/23 103 Date Transcribed: 09/28/23 103 Supervisor Malted Milk: NN Signed Normal [facility] CBC W/Diff, Automatedon 09-01 Absolute Lymph 1.85 X10 3/uL Normal 0.83-4.51 [facility] Comment on above: Performed By: #### L 100.0100, L501.4020, L500.4050, L501.9985 #### [facility] [address] [place], [address] Absolute Neut 3.6 X10 3/uL Normal 2.0-7.7 [facility] Comment on above: Performed By: #### L 100.0100, L501.4020, L500.4050, L501.9985 #### [facility] [address] [place], [address] Basophils/100 WBC (Bld) 0.6 % Normal 0-1 [facility] Comment on above: Performed By: #### L 100.0100, L501.4020, L500.4050, L501.9985 #### [facility] [address] [place], [address] Eosinophils/100 WBC (Bld) 2.4 % Normal 0-5 [facility] Comment on above: Performed By: #### L 100.0100, L501.4020, L500.4050, L501.9985 #### [facility] [address] [place], [address] Erythrocyte distribution width (RBC) [Ratio] 12.8 % Normal 11.6-14.6 [facility] Comment on above: Performed By: #### L 100.0100, L501.4020, L500.4050, L501.9985 #### [facility] [address] [place], [address] Hematocrit (Bld) [Volume fraction] 45.5 % Normal 40-54 [facility] Comment on above: Performed By: #### L 100.0100, L501.4020, L500.4050, L501.9985 #### [facility] [address] [place], [address] Hemoglobin (Bld) [Mass/Vol] 15.1 g/dL Normal 13.0-16.5 [facility] Comment on above: Performed By: #### L 100.0100, L501.4020, L500.4050, L501.9985 #### [facility] [address] [place], [address] IG% 0.200 Normal 0.0-0.9 [facility] Comment on above: Result Comment: IG% - Immature Granulocytes (promyelocytes, myelocytes and metamyelocytes) > 1% indicates that a LEFT SHIFT is Present. Performed By: #### L 100.0100, L501.4020, L500.4050, L501.9985 #### [facility] [address] [place], [address] Lymphocytes/100 WBC (Bld) 29.0 % Normal 19-41 [facility] Comment on above: Performed By: #### L 100.0100, L501.4020, L500.4050, L501.9985 #### [facility] [address] [place], [address] MCH (RBC) [Entitic mass] 29.5 pg Normal 27.0-32.0 [facility] Comment on above: Performed By: #### L 100.0100, L501.4020, L500.4050, L501.9985 #### [facility] [address] [place], [address] MCHC (RBC) [Mass/Vol] 33.2 g/dL Normal 32-36 [facility] Comment on above: Performed By: #### L 100.0100, L501.4020, L500.4050, L501.9985 #### [facility] [address] [place], [address] MCV (RBC) [Entitic vol] 89.0 fL Normal 80-94 [facility] Comment on above: Performed By: #### L 100.0100, L501.4020, L500.4050, L501.9985 #### [facility] [address] [place], [address] Monocytes/100 WBC (Bld) 11.6 % High 0-10 [facility] Comment on above: Performed By: #### L 100.0100, L501.4020, L500.4050, L501.9985 #### [facility] [address] [place], [address] Neutrophils/100 WBC (Bld) 56.2 % Normal 47-70 [facility] Comment on above: Performed By: #### L 100.0100, L501.4020, L500.4050, L501.9985 #### [facility] [address] [place], [address] Nucleated RBC (Bld) [#/Vol] 0 10*3/uL Normal 0-5 [facility] Comment on above: Performed By: #### L 100.0100, L501.4020, L500.4050, L501.9985 #### [facility] [address] [place], [address] Platelet mean volume (Bld) [Entitic vol] 9.8 fL Normal 6.2-12.0 [facility] Comment on above: Performed By: #### L 100.0100, L501.4020, L500.4050, L501.9985 #### [facility] [address] [place], [address] Platelets (Bld) [#/Vol] 350 10*3/uL Normal 150-450 [facility] Comment on above: Performed By: #### L 100.0100, L501.4020, L500.4050, L501.9985 #### [facility] [address] [place], [address] RBC (Bld) [#/Vol] 5.11 10*6/uL Normal 4.6-6.2 [facility] Comment on above: Performed By: #### L 100.0100, L501.4020, L500.4050, L501.9985 #### [facility] [address] [place], [address] RDW SD 41.9 fl Normal 35.1-43.9 [facility] Comment on above: Performed By: #### L 100.0100, L501.4020, L500.4050, L501.9985 #### [facility] [address] [place], [address] WBC (Bld) [#/Vol] 6.4 10*3/uL Normal 4.4-11.0 [facility] Comment on above: Performed By: #### L 100.0100, L501.4020, L500.4050, L501.9985 #### [facility] [address] [place], [address] Comprehensive Metabolic [facility] 09-11-2023 Albumin [Mass/Vol] 3.5 g/dL Normal 3.2-5.0 [facility] Comment on above: Order Comment: 1 Performed By: #### L 100.0100, L501.4020, L500.4050, [id number] #### [facility] [address] [place], [address] Albumin/Globulin [Mass ratio] 0.9 {ratio} Normal 0.9-2.4 [facility] Comment on above: Order Comment: 1 Performed By: #### L 100.0100, L501.4020, L500.4050, [id number] #### [facility] [address] [place], [address] ALK P 91 U/L Normal 45-117 [facility] Comment on above: Order Comment: 1 Performed By: #### L 100.0100, L501.4020, L500.4050, [id number] #### [facility] [address] [place], [address] ALT [Catalytic activity/Vol] 20 U/L Normal 16-61 [facility] Comment on above: Order Comment: 1 Performed By: #### L 100.0100, L501.4020, L500.4050, [id number] #### [facility] [address] [place], [address] AST [Catalytic activity/Vol] 13 U/L Low 15-37 [facility] Comment on above: Order Comment: 1 Performed By: #### L 100.0100, L501.4020, L500.4050, [id number] #### [facility] [address] [place], [address] Bilirubin [Mass/Vol] 0.40 mg/dL Normal 0.20-1.[address] [facility] Comment on above: Order Comment: 1 Result Comment: For patients on eltrombopag therapy, use of Dimension [place] TBIL is not recommended. Performed By: #### L 100.0100, L501.4020, L500.4050, [id number] #### [facility] [address] [place], [address] BUN/CRE 20.6 RATIO High 10-20 [facility] Comment on above: Order Comment: 1 Performed By: #### L 100.0100, L501.4020, L500.4050, [id number] #### [facility] [address] [place], [address] CA,Total 8.8 mg/dL Normal 8.5-10.1 [facility] Comment on above: Order Comment: 1 Performed By: #### L 100.0100, L501.4020, L500.4050, [id number] #### [facility] [address] [place], [address] Chloride [Moles/Vol] 104 mmol/L Normal 98-[address] [facility] Comment on above: Order Comment: 1 Performed By: #### L 100.0100, L501.4020, L500.4050, [id number] #### [facility] [address] [place], [address] CO2 [Moles/Vol] 25.0 mmol/L Normal 21.0-32.0 [facility] Comment on above: Order Comment: 1 Performed By: #### L 100.0100, L501.4020, L500.4050, [id number] #### [facility] [address] [place], [address] Creatinine [Mass/Vol] 0.97 mg/dL Normal 0.70-1.30 [facility] Comment on above: Order Comment: 1 Result Comment: The validity of the calculated GFR GFRAA in patients over 70 years has not been determined. Clinical correlation is essential. Performed By: #### L 100.0100, L501.4020, L500.4050, [id number] #### [facility] [address] [place], [address] EST GFR - AA 97 mL/min Normal >60 [facility] Comment on above: Order Comment: 1 Result Comment: Afri can Irish GFR Calc Performed By: #### L 100.0100, L501.4020, L500.4050, [id number] #### [facility] [address] [place], [address] GAP 7 Normal 5-15 [facility] Comment on above: Order Comment: 1 Performed By: #### L 100.0100, L501.4020, L500.4050, [id number] #### [facility] [address] [place], [address] GFR/1.73 sq M.predicted among non-blacks MDRD (S/P/Bld) [Vol rate/Area] 80 mL/min/{1.73_m2} Normal >60 [facility] Comment on above: Order Comment: 1 Result Comment: Non- GFR Calc Performed By: #### L 100.0100, L501.4020, L500.4050, [id number] #### [facility] [address] [place], [address] Globulin (S) [Mass/Vol] 4.1 g/dL Normal 2.2-4.2 [facility] Comment on above: Order Comment: 1 Performed By: #### L 100.0100, L501.4020, L500.4050, [id number] #### [facility] [address] [place], [address] Glucose [Mass/Vol] 245 mg/dL High 74-106 [facility] Comment on above: Order Comment: 1 Result Comment: Gluc ose result greater than or equal to 200 mg/dL suggests DIABETES MELLITUS per A.D.A. criteria. Performed By: #### L 100.0100, L501.4020, L500.4050, [id number] #### [facility] [address] [place], [address] Potassium [Moles/Vol] 3.6 mmol/L Normal 3.5-5.1 [facility] Comment on above: Order Comment: 1 Performed By: #### L 100.0100, L501.4020, L500.4050, [id number] #### [facility] [address] [place], [address] Sodium [Moles/Vol] 136 mmol/L Normal 136-145 [facility] Comment on above: Order Comment: 1 Performed By: #### L 100.0100, L501.4020, L500.4050, [id number] #### [facility] [address] [place], [address] T PROT 7.6 g/dL Normal 6.4-8.2 [facility] Comment on above: Order Comment: 1 Performed By: #### L 100.0100, L501.4020, L500.4050, [id number] #### [facility] [address] [place], [address] Urea nitrogen [Mass/Vol] 20 mg/dL High 7-18 [facility] Comment on above: Order Comment: 1 Performed By: #### L 100.0100, L501.4020, L500.4050, [id number] #### [facility] [address] [place], [address] Hemoglobin A1con 09-11-2023 HbA1c (Bld) [Mass fraction] 6.9 % High 3.8-5.6 [facility] Comment on above: Result Comment: Norm al < 5.7 % Prediabetic 5.7 - 6.4 % Diabetic >or= 6.5 % Please note range changes. Performed By: #### L 100.0100, L501.4020, L500.4050, [id number] #### [facility] [address] [place], [address] L501.4020on 09-11-2023 TROPONIN-I HS 37 pg/mL Normal 3.0-78.0 [facility] Comment on above: Order Comment: 1 Result Comment: Plea se Note: New Test Units and Gender Specific Reference Ranges. For more information see Policy Stat Procedure [place] High Sensitivity Troponin (TNIH) and attachments. Performed By: #### L 100.0100, L501.4020, L500.4050, [id number] #### [facility] [address] [place], [address] Basophil percentageOrdered B y: Francesco Sierra on 03-20-2023 Cholesterol [Mass/Vol] 245 mg/dL <200 [facility] Comment on above: <200 mg/dL Desirable 200-240 mg/dL Borderline >240 mg/dL High Risk Triglyceride [Mass/Vol] 181 mg/dL <199 [facility] Comment on above: The drugs N-Acetylcy steine and Metamizole may falsely depress this assay.Serum Triglycerides Reference Interval Normal <150 mg/dL Borderline high 150 - 199 mg/dL High 200 - 499 mg/dL Very High > or = 500 mg/dL Iron measurement (mass/mass) Ordered By: Francesco Sierra on 03-20-2023 Iron (Unsp spec) [Mass/Mass] 122 ug/dL 65-175 [facility] - Chemistry and C hemistry - challengeOrdered By: Francesco Sierra on 03-20-2023 Magnesium [Mass/Vol] 2.4 mg/dL 1.6-2.[address] [facility] No Panel InformationOrdered By: Francesco Sierra on 03-20-2023 Miscellaneous Test See comment [facility] Comment on above: TEST RESULT LIMITSIo dine, Serum or Plasma 70.0 ug/L 40.0-92.0 Limit of quantitation = 20 TESTING PERFORMED AT [facility]. ORIGINAL REPORT ON FILE IN LAB CONTAINS ADDITIONAL TEST SITE INFORMATION. Prostate Specific Antigen Screen 3.48 ng/mL 0.00-4.00 [facility] Comment on above: This test was perfor med using the TPSA assay method for the[employer] chemistry system. Values obtained with differentassay methods cannot be used interchangably.When changing PSA assays in the course of monitoring apatient, additional sequential testing should be carriedout to confirm baseline values. Urine Microalbumin/Creatini ne Ratio 8.7 mg/g CRE <30 [facility] Vitamin D 25-Hydroxy 37.6 ng/mL [facility] Comment on above: Vitamin D 25(OH) Sta tus Range Deficiency <20 ng/mL (50nmol/L) Insufficiency 20 - 30 ng/mL (50 - 75 nmol/L) Sufficiency 30 - 100 ng/mL (75 - 250 nmol/L) Toxicity >100 ng/mL (>250 nmol/L) Serum or plasma cholesterol in HDL measurement (mass/volume)Ordered By: Francesco Sierra on 03-20-2023 Cholesterol in HDL [Mass/Vol] 67 mg/dL >40 [facility] Comment on above: The drugs N-Acetylcy steine and Metamizole may falsely depress this assay. Reference Range HDL <40 mg/dL Low HDL Cholesterol HDL >or= 60 mg/dL High HDL Cholesterol Serum or plasma cholesterol in VLDL measurement (mass/volume)Ordered By: Francesco Sierra on 03-20-2023 Cholesterol in VLDL [Mass/Vol] 36 mg/dL 5-40 [facility] Serum or plasma ferritin shell surement (mass/volume)Ordered By: Francesco Sierra on 03-20-2023 Ferritin [Mass/Vol] 83 ng/mL 26-388 [facility] Serum or plasma low density lipoprotein (LDL) cholesterol measurement (mass/volume)Ordered By: Francesco Sierra on 03-20-2023 Cholesterol in LDL [Mass/Vol] 142 mg/dL 0-130 [facility] Thin prep Papanicolaou smear with manual screeningOrdered By: Francesco Sierra on 03-20-2023 Thin prep Papanicolaou smear with manual screening 7.6 mg/L NO RANGE EST. [facility] Urine creatinine measurement (mass/volume)Ordered By: Francesco Sierra on 03-20-2023 Creatinine (U) [Mass/Vol] 86.90 mg/dL NO RANGE EST. [facility] Whole blood hemoglobin A1c/t otal hemoglobin ratio (mass fraction)Ordered By: Francesco Sierra on 03-20-2023 HbA1c (Bld) [Mass fraction] 6.8 % 3.8-5.6 [facility] Comment on above: Normal < 5.7 % Predi abetic 5.7 - 6.4 % Diabetic >or= 6.5 % Please note range changes. Absolute lymphocyte countOrd ered By: Zaria Saldivar on 02-10-2023 Lymphocytes Auto (Unsp spec) [#/Vol] 1.89 10*3/uL 0.83-4.51 [facility] Basophil percentageOrdered B y: Zaria Saldivar on 02-10-2023 Basophils/100 WBC (Bld) 1.0 % 0-1 [facility] Bilirubin [Mass/Vol] 0.40 mg/dL 0.20-1.[address] [facility] Comment on above: For patients on eltr ombopag therapy, use of Dimension [place] TBIL is not recommended. Chloride [Moles/Vol] 103 mmol/L 98-[address] [facility] Eosinophils/100 WBC (Bld) 3.3 % 0-5 [facility] Glucose [Mass/Vol] 177 mg/dL 74-106 [facility] Comment on above: Fasting Glucose resu lt greater than or equal to 126 mg/dL suggests DIABETES MELLITUS per A.D.A. criteria. Neutrophils (Bld) [#/Vol] 5.0 10*3/uL 2.0-7.7 [facility] Neutrophils/100 WBC (Bld) 61.6 % 47-70 [facility] Potassium [Moles/Vol] 3.9 mmol/L 3.5-5.1 [facility] Protein [Mass/Vol] 7.7 g/dL 6.4-8.2 [facility] Sodium [Moles/Vol] 139 mmol/L 136-145 [facility] WBC (Bld) [#/Vol] 8.2 10*3/uL 4.4-11.0 [facility] Blood erythrocytes count (nu mber/volume)Ordered By: Zaria Saldivar on 02-10-2023 RBC (Bld) [#/Vol] 5.24 10*6/uL 4.6-6.2 [facility] Blood hemoglobin measurement (mass/volume)Ordered By: Zaria Saldivar on 02-10-2023 Hemoglobin (Bld) [Mass/Vol] 15.5 g/dL 13.0-16.5 [facility] Blood lymphocytes/100 leukoc ytesOrdered By: Zaria Saldivar on 02-10-2023 Lymphocytes/100 WBC (Bld) 23.2 % 19-41 [facility] Blood monocytes/100 leukocyt esOrdered By: Zaria Saldivar on 02-10-2023 Monocytes/100 WBC (Bld) 10.7 % 0-10 [facility] Blood platelet mean volumeOr dered By: Zaria Saldivar on 02-10-2023 Platelet mean volume (Bld) [Entitic vol] 10.1 fL 6.2-12.0 [facility] Determination of erythrocyte mean corpuscular volume (MCV)Ordered By: Zaria Saldivar on 02-10-2023 MCV (RBC) [Entitic vol] 91.2 fL 80-94 [facility] Hematocrit Auto (Bld) [Volum e fraction]Ordered By: Zariazane Saldivar on 02-10-2023 Hematocrit (Bld) [Volume fraction] 47.8 % 40-54 [facility] - Chemistry and C hemistry - challengeOrdered By: Helena Yariel on 02-10-2023 ALP [Catalytic activity/Vol] 97 U/L 45-117 [facility] ALT [Catalytic activity/Vol] 24 U/L 16-61 [facility] CO2 [Moles/Vol] 30.0 mmol/L 21.0-32.0 [facility] Globulin (S) [Mass/Vol] 4.2 g/dL 2.2-4.2 [facility] Urea nitrogen/Creatinine [Mass ratio] 15.8 mg/mg 10-20 [facility] - Hematology and Cell countsOrdered By: Zariazane Saldivar on 02-10-2023 Erythrocyte distribution width (RBC) [Entitic vol] 41.2 fL 35.1-43.9 [facility] Erythrocyte distribution width (RBC) [Ratio] 12.4 % 11.6-14.6 [facility] Immature granulocytes/100 WBC (Bld) 0.200 % 0.0-0.9 [facility] Comment on above: IG% - Immature Granu locytes (promyelocytes, myelocytes and metamyelocytes) > 1% indicates that a LEFT SHIFT is Present. MCH (RBC) [Entitic mass] 29.6 pg 27.0-32.0 [facility] Nucleated RBC/100 WBC (Bld) [Ratio] 0 % 0-5 [facility] MCHC Auto (RBC) [Mass/Vol]Or dered By: Zaria Saldivar on 02-10-2023 MCHC (RBC) [Mass/Vol] 32.4 g/dL 32-36 [facility] No Panel InformationOrdered By: Zaria Saldivar on 02-10-2023 Estimated GFR (MDRD) Amer 93 mL/min >60 [facility] Comment on above: GFR Calc Estimated GFR (MDRD) Non-Af Amer 77 mL/min >60 [facility] Comment on above: Non- GFR Calc Platelets bldOrdered By: Darius zane Yariel on 02-10-2023 Platelets (Bld) [#/Vol] 387 10*3/uL 150-450 [facility] Serum or plasma albumin faizan urement (mass/volume)Ordered By: Zaria Saldivar on 02-10-2023 Albumin [Mass/Vol] 3.5 g/dL 3.2-5.0 [facility] Serum or plasma albumin/glob ulin mass ratioOrdered By: Zariazane Saldivar on 02-10-2023 Albumin/Globulin [Mass ratio] 0.8 {ratio} 0.9-2.4 [facility] Serum or plasma calcium faizan urement (mass/volume)Ordered By: Zaria Saldivar on 02-10-2023 Calcium [Mass/Vol] 9.3 mg/dL 8.5-10.1 [facility] Serum or plasma creatinine m easurement (mass/volume)Ordered By: Zaria Saldivar on 02-10-2023 Creatinine [Mass/Vol] 1.01 mg/dL 0.70-1.30 [facility] Comment on above: The validity of the calculated GFR & GFRAA in patients over 70 years has not been determined. Clinical correlation is essential. Serum or plasma urea nitroge n measurement (mass/volume)Ordered By: Zaria Saldivar on 02-10-2023 Urea nitrogen [Mass/Vol] 16 mg/dL 7-18 [facility] Thin prep Papanicolaou smear with manual screeningOrdered By: Zariazane Saldivar on 02-10-2023 Thin prep Papanicolaou smear with manual screening 12 U/L 15-37 [facility] Thin prep Papanicolaou smear with manual screening 6 5-15 [facility] No Panel Informationon 03-28 Prostate Specific Antigen Total 3.57 ng/mL 0.0-4.0 [facility] Work Phone: Comment on above: This test was perfor med using the TPSA assay method for [employer] chemistry system. Values obtained with differentassay methods cannot be used interchangably.When changing PSA assays in the course of monitoring apatient, additional sequential testing should be carriedout to confirm baseline values. Laboratory - Chemistry and C hemistry - challengeon 12-30-2021 Cobalamin (Vitamin B12) [Mass/Vol] 506 pg/mL 211-911 [facility] Work Phone: [phone] Whole blood hemoglobin A1c/t otal hemoglobin ratio (mass fraction)on 12-30-2021 HbA1c (Bld) [Mass fraction] 6.2 % 3.8-5.6 [facility] Work Phone: [phone] Comment on above: Normal < 5.7 % Predi abetic 5.7 - 6.4 % Diabetic >or= 6.5 % Please note range changes. Absolute lymphocyte counton 10-11-2021 Lymphocytes Auto (Unsp spec) [#/Vol] 1.98 10*3/uL 0.83-4.51 [facility] Work Phone: Basophil percentageon 2021 Basophils/100 WBC (Bld) 1.1 % 0-1 [facility] Work Phone: [phone] Bilirubin [Mass/Vol] 0.50 mg/dL 0.20-1.[address] [facility] Work Phone: [phone] Comment on above: For patients on eltr ombopag therapy, use of Dimension [place] TBIL is not recommended. Chloride [Moles/Vol] 104 mmol/L 98-[address] [facility] Work Phone: [phone] Cholesterol [Mass/Vol] 219 mg/dL <200 [facility] Work Phone: [phone] Comment on above: <200 mg/dL Desirable 200-240 mg/dL Borderline >240 mg/dL High Risk Eosinophils/100 WBC (Bld) 3.5 % 0-5 [facility] Work Phone: [phone] Glucose [Mass/Vol] 119 mg/dL 74-106 [facility] Work Phone: [phone] Comment on above: Fasting Glucose resu lt from 100 to 125 mg/dL suggests IMPAIRED HOMEOSTASIS per A.D.A. criteria. Neutrophils (Bld) [#/Vol] 3.2 10*3/uL 2.0-7.7 [facility] Work Phone: Neutrophils/100 WBC (Bld) 51.7 % 47-70 [facility] Work Phone: Potassium [Moles/Vol] 4.3 mmol/L 3.5-5.1 [facility] Work Phone: [phone] Protein [Mass/Vol] 7.2 g/dL 6.4-8.2 [facility] Work Phone: Sodium [Moles/Vol] 136 mmol/L 136-145 [facility] Work Phone: Triglyceride [Mass/Vol] 92 mg/dL <199 [facility] Work Phone: [phone] Comment on above: The drugs N-Acetylcy steine and Metamizole may falsely depress this assay.Serum Triglycerides Reference Interval Normal <150 mg/dL Borderline high 150 - 199 mg/dL High 200 - 499 mg/dL Very High > or = 500 mg/dL WBC (Bld) [#/Vol] 6.2 10*3/uL 4.4-11.0 [facility] Work Phone: Blood erythrocytes count (nu mber/volume)on 10-11-2021 RBC (Bld) [#/Vol] 5.36 10*6/uL 4.6-6.2 [facility] Work Phone: Blood hemoglobin measurement (mass/volume)on 10-11-2021 Hemoglobin (Bld) [Mass/Vol] 15.8 g/dL 13.0-16.5 [facility] Work Phone: Blood lymphocytes/100 leukoc yteson 10-11-2021 Lymphocytes/100 WBC (Bld) 31.9 % 19-41 [facility] Work Phone: Blood monocytes/100 leukocyt eson 10-11-2021 Monocytes/100 WBC (Bld) 11.6 % 0-10 [facility] Work Phone: Blood platelet mean volumeon 10-11-2021 Platelet mean volume (Bld) [Entitic vol] 9.3 fL 6.2-12.0 [facility] Work Phone: Determination of erythrocyte mean corpuscular volume (MCV)on 10-11-2021 MCV (RBC) [Entitic vol] 88.8 fL 80-94 [facility] Work Phone: Hematocrit Auto (Bld) [Volum e fraction]on 10-11-2021 Hematocrit (Bld) [Volume fraction] 47.6 % 40-54 [facility] Work Phone: Laboratory - Chemistry and C hemistry - challengeon 10-11-2021 ALP [Catalytic activity/Vol] 73 U/L 45-117 [facility] Work Phone: ALT [Catalytic activity/Vol] 16 U/L 16-61 [facility] Work Phone: [phone] CO2 [Moles/Vol] 28.0 mmol/L 21.0-32.0 [facility] Work Phone: Cobalamin (Vitamin B12) [Mass/Vol] 236 pg/mL 211-911 [facility] Work Phone: Globulin (S) [Mass/Vol] 3.6 g/dL 2.2-4.2 [facility] Work Phone: [phone] Urea nitrogen/Creatinine [Mass ratio] 20.8 mg/mg 10-20 [facility] Work Phone: [phone] Laboratory - Hematology and Cell countson 10-11-2021 Erythrocyte distribution width (RBC) [Entitic vol] 41.2 fL 35.1-43.9 [facility] Work Phone: [phone] Erythrocyte distribution width (RBC) [Ratio] 12.6 % 11.6-14.6 [facility] Work Phone: Immature granulocytes/100 WBC (Bld) 0.200 % 0.0-0.9 [facility] Work Phone: Comment on above: IG% - Immature Granu locytes (promyelocytes, myelocytes and metamyelocytes) > 1% indicates that a LEFT SHIFT is Present. MCH (RBC) [Entitic mass] 29.5 pg 27.0-32.0 [facility] Work Phone: Nucleated RBC/100 WBC (Bld) [Ratio] 0 % 0-5 [facility] Work Phone: MCHC Auto (RBC) [Mass/Vol]on 10-11-2021 MCHC (RBC) [Mass/Vol] 33.2 g/dL 32-36 [facility] Work Phone: No Panel Informationon 10-11 Estimated GFR (MDRD) Amer 88 mL/min >60 [facility] Work Phone: Comment on above: GFR Calc Estimated GFR (MDRD) Non-Af Amer 73 mL/min >60 [facility] Work Phone: Comment on above: Non- GFR Calc Urine Microalbumin/Creatini ne Ratio 7.6 mg/g CRE <30 [facility] Work Phone: Platelets bldon 10-11-2021 Platelets (Bld) [#/Vol] 307 10*3/uL 150-450 [facility] Work Phone: Serum or plasma albumin faizan urement (mass/volume)on 10-11-2021 Albumin [Mass/Vol] 3.6 g/dL 3.2-5.0 [facility] Work Phone: [phone] Serum or plasma albumin/glob ulin mass ratioon 10-11-2021 Albumin/Globulin [Mass ratio] 1.0 {ratio} 0.9-2.4 [facility] Work Phone: [phone] Serum or plasma calcium faizan urement (mass/volume)on 10-11-2021 Calcium [Mass/Vol] 8.9 mg/dL 8.5-10.1 [facility] Work Phone: [phone] Serum or plasma cholesterol in HDL measurement (mass/volume)on 10-11-2021 Cholesterol in HDL [Mass/Vol] 70 mg/dL >40 [facility] Work Phone: Comment on above: The drugs N-Acetylcy steine and Metamizole may falsely depress this assay. Reference Range HDL <40 mg/dL Low HDL Cholesterol HDL >or= 60 mg/dL High HDL Cholesterol Serum or plasma cholesterol in VLDL measurement (mass/volume)on 10-11-2021 Cholesterol in VLDL [Mass/Vol] 18 mg/dL 5-40 [facility] Work Phone: [phone] Serum or plasma creatinine m easurement (mass/volume)on 10-11-2021 Creatinine [Mass/Vol] 1.06 mg/dL 0.70-1.30 [facility] Work Phone: Comment on above: The validity of the calculated GFR & GFRAA in patients over 70 years has not been determined. Clinical correlation is essential. Serum or plasma low density lipoprotein (LDL) cholesterol measurement (mass/volume)on 10-11-2021 Cholesterol in LDL [Mass/Vol] 131 mg/dL 0-130 [facility] Work Phone: Serum or plasma urea nitroge n measurement (mass/volume)on 10-11-2021 Urea nitrogen [Mass/Vol] 22 mg/dL 7-18 [facility] Work Phone: [phone] Thin prep Papanicolaou smear with manual screeningon 10-11-2021 Thin prep Papanicolaou smear with manual screening 13 U/L 15-37 [facility] Work Phone: [phone] Thin prep Papanicolaou smear with manual screening 4 5-15 [facility] Work Phone: [phone] Thin prep Papanicolaou smear with manual screening 11.3 mg/L NO RANGE EST. [facility] Work Phone: [phone] Urine creatinine measurement (mass/volume)on 10-11-2021 Creatinine (U) [Mass/Vol] 148.00 mg/dL NO RANGE EST. [facility] Work Phone: [phone] Whole blood hemoglobin A1c/t otal hemoglobin ratio (mass fraction)on 10-11-2021 HbA1c (Bld) [Mass fraction] 6.1 % 3.8-5.6 [facility] Work Phone: Comment on above: Normal < 5.7 % Predi abetic 5.7 - 6.4 % Diabetic >or= 6.5 % Please note range changes. Office Visit: postop surgery 12/12/1601-08-2017 Fall risk assessment No Invalid Interpretation Code [facility] Work Phone: [phone] Protein mass conc Done Invalid Interpretation Code [facility] Work Phone: [phone] Tobacco smoking status NHIS Never Invalid Interpretation Code [facility] Work Phone: [phone] Tobacco smoking status NHIS Never smoker Invalid Interpretation Code [facility] Work Phone: [phone] Office Visit: postop surgery 12/12/1612-25-2016 Fall risk assessment No Invalid Interpretation Code [facility] Work Phone: [phone] Protein mass conc Done Invalid Interpretation Code [facility] Work Phone: [phone] Tobacco smoking status NHIS Never Invalid Interpretation Code [facility] Work Phone: [phone] Tobacco smoking status NHIS Never smoker Invalid Interpretation Code [facility] Work Phone: [phone] Office Visit: postop surgery 12/12/1612-17-2016 Dietary management education, guidance, and counseling (procedure) yes Invalid Interpretation Code [facility] Work Phone: [phone] Documentation of current medications (procedure) Done Invalid Interpretation Code [facility] Work Phone: [phone] Fall risk assessment No Invalid Interpretation Code [facility] Work Phone: [phone] Tobacco smoking status NHIS Never Invalid Interpretation Code [facility] Work Phone: [phone] Tobacco use [facility]PH[facility] Never smoker Invalid Interpretation Code [facility] Work Phone: [phone] Office Visit: evaluation tri gger finger left ring fingeron 11-19-2016 Dietary management education, guidance, and counseling (procedure) yes Invalid Interpretation Code [facility] Work Phone: [phone] Documentation of current medications (procedure) Done Invalid Interpretation Code [facility] Work Phone: [phone] Fall risk assessment No Invalid Interpretation Code [facility] Work Phone: [phone] Tobacco smoking status NHIS Never Invalid Interpretation Code [facility] Work Phone: [phone] Tobacco use [facility]PH[facility] Never smoker Invalid Interpretation Code [facility] Work Phone: [phone] 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 Tobacco smoking status NHIS Never smoker [facility] Work Phone: [phone] Tobacco use [facility] Never smoker Invalid Interpretation Code [facility] Work Phone: [phone] Office Visit: F/u HTN & Eval of Herniaon 10-10-2015 Documentation of current medications (procedure) Done Invalid Interpretation Code [facility] Work Phone: [phone] Protein mass conc Done [facility] Work Phone: [phone] Tobacco smoking status NHIS Never [facility] Work Phone: [phone] Lab Report: CBC W/Diff, Auto matedon 10-05-2015 Basophils/100 leukocytes 0.7 % Invalid Interpretation Code 0-1 [facility] Work Phone: [phone] Basophils/100 WBC (Bld) 0.7 % 0-1 [facility] Work Phone: [phone] Eosinophils/100 leukocytes 1.2 % Invalid Interpretation Code 0-5 [facility] Work Phone: [phone] Eosinophils/100 WBC (Bld) 1.2 % 0-5 [facility] Work Phone: [phone] Erythrocyte distribution width Auto Ratio (RBC) 39.9 fL Invalid Interpretation Code 35.1-43.9 [facility] Work Phone: [phone] Erythrocyte distribution width Ratio (RBC) 12.6 % 11.6-14.6 [facility] Work Phone: [phone] Erythrocyte distribution width Ratio (RBC) 39.9 fL 35.1-43.9 [facility] Work Phone: [phone] Erythrocytes (RBC) 5.45 10*6/uL Invalid Interpretation Code 4.6-6.2 [facility] Work Phone: [phone] Hematocrit (HCT) 48.4 % Invalid Interpretation Code 40-54 [facility] Work Phone: [phone] Hematocrit Volume Fraction (Bld) 48.4 % 40-54 [facility] Work Phone: [phone] Hemoglobin (HGB) 16.3 g/dL Invalid Interpretation Code 13.0-16.5 [facility] Work Phone: [phone] Immature granulocytes #/vol (Bld) 0.100 % Invalid Interpretation Code 0.0-0.9 [facility] Work Phone: [phone] immature granulocytes, percentage of total cells, blood 0.100 % Invalid Interpretation Code 0.0-0.9 [facility] Work Phone: [phone] Lymphocytes 1.75 X10 3/UL Invalid Interpretation Code 0.83-4.51 [facility] Work Phone: [phone] Lymphocytes #/vol (Bld) 1.75 X10 3/UL 0.83-4.51 [facility] Work Phone: [phone] Lymphocytes/100 leukocytes 24.0 % Invalid Interpretation Code 19-41 [facility] Work Phone: [phone] Lymphocytes/100 WBC (Bld) 24.0 % 19-41 [facility] Work Phone: [phone] MCH 29.9 pg Invalid Interpretation Code 27.0-32.0 [facility] Work Phone: [phone] MCH Entitic mass (RBC) 29.9 pg 27.0-32.0 [facility] Work Phone: [phone] MCHC 33.7 G/GL Invalid Interpretation Code 32-36 [facility] Work Phone: [phone] MCHC mass conc (RBC) 33.7 G/GL 32-[address] [facility] Work Phone: [phone] MCV 88.8 fL Invalid Interpretation Code 80-94 [facility] Work Phone: [phone] MCV Entitic volume (RBC) 88.8 fL 80-94 [facility] Work Phone: [phone] Monocytes/100 leukocytes 8.6 % Invalid Interpretation Code 0-10 [facility] Work Phone: [phone] Monocytes/100 WBC (Bld) 8.6 % 0-10 [facility] Work Phone: [phone] neutrophil count, blood 4.8 X10 3/UL Invalid Interpretation Code 2.0-7.7 [facility] Work Phone: [phone] Neutrophils #/vol (Bld) 4.8 X10 3/UL 2.0-7.7 [facility] Work Phone: [phone] Neutrophils Auto #/vol (Bld) 4.8 X10 3/UL Invalid Interpretation Code 2.0-7.7 [facility] Work Phone: [phone] Neutrophils/100 leukocytes 65.4 % Invalid Interpretation Code 47-70 [facility] Work Phone: [phone] Neutrophils/100 WBC (Bld) 65.4 % 47-70 [facility] Work Phone: [phone] Platelet mean volume Entitic volume (Bld) 9.5 fL 6.2-12.0 [facility] Work Phone: [phone] Platelets 273 10*3/mm3 Invalid Interpretation Code 150-450 [facility] Work Phone: [phone] Platelets #/vol (Bld) 273 10*3/mm3 150-450 [facility] Work Phone: [phone] PMV by Rosa Maria 9.5 fL Invalid Interpretation Code 6.2-12.0 [facility] Work Phone: [phone] RBC #/vol (Bld) 5.45 10*6/uL 4.6-6.2 [facility] Work Phone: [phone] RDW-CA 12.6 % Invalid Interpretation Code 11.6-14.6 [facility] Work Phone: [phone] red blood cell distribution width, size density 39.9 fL Invalid Interpretation Code 35.1-43.9 [facility] Work Phone: [phone] WBC #/vol (Bld) 7.3 10*3/uL 4.4-11.0 [facility] Work Phone: [phone] WBC (Leukocytes) 7.3 10*3/uL Invalid Interpretation Code 4.4-11.0 [facility] Work Phone: [phone] Lab Report: Comprehensive Me bernard Gomezon 10-05-2015 Alanine aminotransferase (ALT) 25 U/L Invalid Interpretation Code 12-78 [facility] Work Phone: [phone] Albumin 3.8 g/dL Invalid Interpretation Code 3.4-5.0 [facility] Work Phone: [phone] Albumin/Globulin Ratio 0.9 {ratio} Invalid Interpretation Code 0.9-2.4 [facility] Work Phone: [phone] Alkaline phosphatase (ALP) 94 U/L Invalid Interpretation Code 50-136 [facility] Work Phone: [phone] ALP enzyme act/vol (Bld) 94 U/L Invalid Interpretation Code 50-136 [facility] Work Phone: [phone] Anion gap 8 mmol/L Invalid Interpretation Code 5-15 [facility] Work Phone: [phone] Anion gap 4 molar conc 8 Invalid Interpretation Code 5-15 [facility] Work Phone: [phone] Anion gap molar conc 8 mmol/L 5-[address] [facility] Work Phone: [phone] Aspartate aminotransferase (AST) 17 U/L Invalid Interpretation Code 15-37 [facility] Work Phone: [phone] Bilirubin (total) 0.50 mg/dL Invalid Interpretation Code 0.20-1.00 [facility] Work Phone: [phone] BUN/Creatinine Ratio 16.7 RATIO Invalid Interpretation Code 10-20 [facility] Work Phone: [phone] Calcium 8.7 mg/dL Invalid Interpretation Code 8.5-10.1 [facility] Work Phone: [phone] Chloride 103 mmol/L Invalid Interpretation Code 98-107 [facility] Work Phone: [phone] CO2 27.0 mmol/L Invalid Interpretation Code 21.0-32.0 [facility] Work Phone: [phone] CO2 ppres (BldV) 27.0 mmol/L Invalid Interpretation Code 21.0-32.0 [facility] Work Phone: [phone] Creatinine 1.02 mg/dL Invalid Interpretation Code 0.70-1.30 [facility] Work Phone: [phone] eGFR (non-black) 93 mL/min/{1.73_m2} Invalid Interpretation Code >60 [facility] Work Phone: [phone] eGFR (non-black) 77 mL/min/{1.73_m2} Invalid Interpretation Code >60 [facility] Work Phone: [phone] EST GFR - AA 93 mL/min Invalid Interpretation Code >60 [facility] Work Phone: [phone] Globulin 4.2 g/dL High 2.3-3.5 [facility] Work Phone: [phone] Globulin mass conc (S) 4.2 g/dL High 2.3-3.5 [facility] Work Phone: [phone] Glucose 97 mg/dL Invalid Interpretation Code 70-110 [facility] Work Phone: [phone] Glucose mass conc 97 mg/dL Invalid Interpretation Code 70-110 [facility] Work Phone: [phone] Potassium 4.1 mmol/L Invalid Interpretation Code 3.5-5.1 [facility] Work Phone: [phone] Protein 8.0 g/dL Invalid Interpretation Code 6.4-8.2 [facility] Work Phone: [phone] Sodium 138 mmol/L Invalid Interpretation Code 136-145 [facility] Work Phone: [phone] Urea nitrogen 17 mg/dL Invalid Interpretation Code 7-18 [facility] Work Phone: [phone] Lab Report: Lipid Profileon 10-05-2015 Cholesterol 219 mg/dL High 200 [facility] Work Phone: [phone] HDL Cholesterol 65 mg/dL Invalid Interpretation Code [facility] Work Phone: [phone] LDL Cholesterol 127 mg/dL Invalid Interpretation Code 0-130 [facility] Work Phone: [phone] Triglyceride 136 mg/dL Invalid Interpretation Code [facility] Work Phone: [phone] very low density lipoproteins 27 mg/dL Invalid Interpretation Code 5-40 [facility] Work Phone: [phone] Vital Signs Date Time Vital Sign Value Performing Clinician Faci lity 01-08-2017 16:01-0400 BMI (Body Mass Index) 28.28 kg/m2 Donnell Billingsley MD [facility] Work Phone: 01-08-2017 16:01-0400 Body Temperature 98 [degF] Donnell Billingsley MD [facility] Work Phone: 01-08-2017 16:01-0400 BP Diastolic 80 mm[Hg] Donnell Billingsley MD [facility] Work Phone: 01-08-2017 16:01-0400 BP Systolic 123 mm[Hg] Donnell Billingsley MD [facility] Work Phone: 01-08-2017 16:01-0400 BSA (Body Surface Area) 1.98 m2 Donnell Billingsley MD [facility] Work Phone: 01-08-2017 16:01-0400 Height 172.72 cm Donnell Billingsley MD [facility] Work Phone: 01-08-2017 16:01-0400 Pulse (Heart Rate) 70 /min Donnell Billingsley MD [facility] Work Phone: 01-08-2017 16:01-0400 Respiratory Rate 16 /min Donnell Billingsley MD [facility] Work Phone: 01-08-2017 16:01-0400 Weight 84.37 kg Donnell Billingsley MD [facility] Work Phone: 12-25-2016 14:24-0400 BMI (Body Mass Index) 28.07 kg/m2 Donnell Billingsley MD [facility] Work Phone: 12-25-2016 14:24-0400 Body Temperature 98.4 [degF] Donnell Billingsley MD [facility] Work Phone: 12-25-2016 14:24-0400 BP Diastolic 72 mm[Hg] Donnell Billingsley MD [facility] Work Phone: 12-25-2016 14:24-0400 BP Systolic 114 mm[Hg] Donnell Billingsley MD [facility] Work Phone: 12-25-2016 14:240400 BSA (Body Surface Area) 1.98 m2 Donnell Billingsley MD [facility] Work Phone: [phone] Height 172.72 cm Donnell Billingsley MD [facility] Work Phone: 12-25-2016 14:24-0400 Pulse (Heart Rate) 68 /min Donnell Billingsley MD [facility] Work Phone: 12-25-2016 14:24-0400 Respiratory Rate 16 /min Donnell Billingsley MD [facility] Work Phone: 12-25-2016 14:24-0400 Weight 83.73 kg Donnell Billingsley MD [facility] Work Phone: 12-17-2016 15:14-0400 BMI (Body Mass Index) 28.07 kg/m2 Donnell Billingsley MD [facility] Work Phone: 12-17-2016 15:14-0400 Body Temperature 98.7 [degF] Donnell Billingsley MD [facility] Work Phone: 12-17-2016 15:14-0400 BP Diastolic 73 mm[Hg] Donnell Billingsley MD [facility] Work Phone: 12-17-2016 15:14-0400 BP Systolic 117 mm[Hg] Donnell Billingsley MD [facility] Work Phone: 12-17-2016 15:14-0400 BSA (Body Surface Area) 1.98 m2 Donnell Billingsley MD [facility] Work Phone: 12-17-2016 15:14-0400 Height 172.72 cm Donnell Billingsley MD [facility] Work Phone: 12-17-2016 15:14-0400 Pulse (Heart Rate) 67 /min Donnell Billingsley MD [facility] Work Phone: 12-17-2016 15:14-0400 Respiratory Rate 16 /min Donnell Billingsley MD [facility] Work Phone: 12-17-2016 15:14-0400 Weight 83.73 kg Donnell Billingsley MD [facility] Work Phone: 11-19-2016 08:22-0400 BMI (Body Mass Index) 27.61 kg/m2 Donnell Billingsley MD [facility] Work Phone: 11-19-2016 08:22-0400 Body Temperature 97.3 [degF] Donnell Billingsley MD [facility] Work Phone: 11-19-2016 08:22-0400 BP Diastolic 74 mm[Hg] Donnell Billingsley MD [facility] Work Phone: 11-19-2016 08:22-0400 BP Systolic 121 mm[Hg] Donnell Billingsley MD [facility] Work Phone: 11-19-2016 08:22-0400 BSA (Body Surface Area) 1.96 m2 Donnell Billingsley MD [facility] Work Phone: 11-19-2016 08:22-0400 Height 172.72 cm Donnell Billingsley MD [facility] Work Phone: 11-19-2016 08:22-0400 Pulse (Heart Rate) 58 /min [facility] Work Phone: 11-19-2016 08:22-0400 Respiratory Rate 16 /min Donnell Billingsley MD [facility] Work Phone: 11-19-2016 08:22-0400 Weight 82.37 kg Donnell Billingsley MD [facility] Work Phone: 10-10-2015 14:21-0400 BMI (Body Mass Index) 28 kg/m2 [facility] Work Phone: 10-10-2015 14:21-0400 Body Temperature 98.3 [degF] [facility] Work Phone: 10-10-2015 14:21-0400 BP Diastolic 70 mm[Hg] [facility] Work Phone: 10-10-2015 14:21-0400 BP Systolic 116 mm[Hg] Danisha Alvarez [facility] Work Phone: 10-10-2015 14:210400 BSA (Body Surface Area) 1.98 m2 Danisha Alvarez [facility] Work Phone: 10-10-2015 14:0400 Height 172.72 cm Danisha Alvarez [facility] Work Phone: 10-10-2015 14:21-0400 Pulse (Heart Rate) 69 /min Danisha Alvarez [facility] Work Phone: 10-10-2015 14:0400 Respiratory Rate 16 /min [facility] Work Phone: 10-10-2015 14:0400 Weight 83.55 kg Danisha Alvarez [facility] Work Phone: Encounters Encounter Date Encounter Type Care Provider Facility Start: 11-20-2024 ambulatory Francesco Rigo Facility: [facility] Start: 08-08-2024 End: 08-08-[address] Francesco Sierra DO Work Phone: [facility] Work Phone: Start: 08-08-2024 End: 08-08-[address] Francesco Sierra DO -Laboratory Work Phone: Start: 08-08-2024 End: 08-08-2024 ambulatory Francesco Sierra Facility:[facility] Start: 04-06-2024 End: 04-06-[address] [facility] Facility:[facility] Start: 02-02-2024 ambulatory Aron Cheney Facchasity lity:[facility] Start: 11-30-2023 ambulatory [facility] Start: 11-27-2023 ambulatory [facility] Start: 11-27-2023 End: 11-27-2023 ambulatory Emil Rory Facility:[facility] Start: 11-10-2023 End: 11-10-2023 Subsequent hospital visit by physician Saeid Osp[facility] Comment on above: Hyperlipidemia, unsp ecified; Hypertensive heart disease without heart failure; Essential (primary) hypertension; Abnormal result of other cardiovascular function study; Chest pain, unspecified; Other fatigue Start: 10-22-2023 End: 10-22-2023 ambulatory Emil Valadez [facility] Start: 09-28-2023 ambulatory [facility]: [facility] Start: 09-23-2023 End: 09-23-2023 ambulatory Shilpa Acuña [facility] Start: 09-11-2023 End: 09-11-2023 ambulatory [facility] Facility:[facility] Start: 03-20-2023 End: 03-20-2023 ambulatory [facility] Work Phone: Start: 03-20-2023 End: 03-20-2023 Patient encounter procedure [facility]Labor[facility] Work Phone: Start: 03-11-2023 End: 03-11-2023 ambulatory [facility] Work Phone: Start: 03-11-2023 End: 03-11-2023 Patient encounter procedure [facility]-Cat Scan, [facility] Work Phone: Start: 02-21-2023 End: 02-21-2023 ambulatory [facility] Work Phone: Start: 02-21-2023 End: 02-21-2023 Patient encounter procedure [facility]-Ultrasound, [facility] Work Phone: Start: 02-10-2023 End: 02-10-2023 ambulatory [facility] Work Phone: Start: 02-10-2023 End: 02-10-2023 Patient encounter procedure [facility]Laboratory, Filippo Bueno [facility] Start: 03-28-2022 End: 03-28-2022 ambulatory [facility] Work Phone: Start: 03-28-2022 End: 03-28-2022 Patient encounter procedure [facility], [place] Start: 12-30-2021 End: 12-30-2021 ambulatory [facility] Work Phone: Start: 12-30-2021 End: 12-30-2021 Patient encounter procedure [facility], [place] Start: 10-11-2021 End: 10-11-2021 Patient encounter procedure [facility] Procedures Date Procedure Procedure Detail Performing Clinician Start: 03-11-2023 CT of abdomen with contrast Start: 02-21-2023 CT of abdomen Start: 01-08-2017 End: 01-08-2017 Dietary management education, guidance, and counseling Donnell Billingsley MD Start: 12-25-2016 End: 12-25-2016 Dietary management education, guidance, and counseling Donnell Billingsley MD Start: 12-25-2016 End: 02-09-2017 Follow Up Appt Robbie Billingsley MD Start: 12-17-2016 End: 12-22-2016 Follow up Appt 1 week Donnell Billingsley MD Start: 12-17-2016 End: 12-22-2016 Follow up Appt 1 week Donnell Billingsley MD Start: 11-19-2016 End: 12-11-2016 Follow Up Appt Robbie Billingsley MD Start: 11-19-2016 End: 12-11-2016 Follow Up Appt Robbie Billingsley MD Start: 09-11-2015 End: 10-05-2015 *CBC with Differential Georgia Enriquez, DO Work Phone: Start: 09-11-2015 End: 10-05-2015 *CMP Complete Metabolic Panel Georgia Enriquez, DO Work Phone: Start: 09-11-2015 End: 10-05-2015 Lipid 1996 panel - Serum or Plasma Georgia Enriquez, DO Work Phone: Start: 09-11-2015 End: 10-05-2015 *CBC with Differential Georgia Enriquez, DO Work Phone: Start: 09-11-2015 End: 10-05-2015 *CMP Complete Metabolic Panel Georgia Enriquez, DO Work Phone: Start: 09-11-2015 End: 10-05-2015 Lipid panel [AGGREGATE] Georgia Enriquez DO Work Phone: Plan of Treatment Date Care Activity Detail Author Start: 01-03-2024 Influenza vaccination Influenza Vacc ine (#1) [facility] Start: 08-09-2023 DTaP/Tdap/Td Vaccine s (2 - Td or Tdap) DTaP/Tdap/Td Vaccines (2 - Td or Tdap) [facility] Start: 01-02-2023 COVID-19 Vaccine () COVID-19 Vaccine () [facility] Start: 03-03-2020 Pneumococcal Vaccine : 65+ Years (2 of 2 - PPSV23 or PCV20) Pneumococcal Vaccine: 65+ Years (2 of 2 - PPSV23 or PCV20) [facility] Start: 01-08-2017 End: 02-22-2017 Follow Up Appt Other Follow Up Appt Other [facility] Work Phone: Start: 12-25-2016 End: 12-25-2016 Appointment Appointment [facility] Work Phone: Start: 12-25-2016 End: 02-09-2017 Follow Up Appt Other Follow Up Appt Other [facility] Work Phone: Start: 12-17-2016 End: 12-22-2016 Follow up Appt 1 week Follow up Appt 1 week [facility] Work Phone: Start: 12-17-2016 End: 12-22-2016 Follow up Appt 1 week Follow up Appt 1 week [facility] Work Phone: Start: 12-12-2016 End: 12-12-2016 Appointment Appointment [facility] Work Phone: Start: 11-19-2016 End: 12-11-2016 Follow Up Appt Other Follow Up Appt Other [facility] Work Phone: Start: 11-19-2016 End: 11-19-2016 Appointment Appointment [facility] Work Phone: Start: 11-19-2016 End: 12-11-2016 Follow Up Appt Other Follow Up Appt Other [facility] Work Phone: Start: 10-10-2015 End: 10-10-2015 Destruction premalignant lesion 2-14 ea Destruction of lesion 2nd through 14th [facility] Work Phone: Start: 10-10-2015 End: 10-10-2015 Surgery Referral Surgery Referral Jose Francisco Mathew, [address], [address], [place], [address] [facility] Work Phone: Start: 10-10-2015 End: 10-10-2015 Destruct premalg les, 2-14 Destruction of lesion 2nd through 14 [facility] Work Phone: Start: 10-10-2015 End: 10-10-2015 Surgery Referral [facility] Work Phone: Start: 09-11-2015 End: 10-05-2015 *CBC with Differential *CBC with Differential [facility] Work Phone: Start: 09-11-2015 End: 10-05-2015 *CMP Complete Metabolic Panel *CMP Complete Metabolic Panel [facility] Work Phone: Start: 09-11-2015 End: 10-05-2015 Lipid 1996 panel *Lipid Profile [facility] Work Phone: Start: 09-11-2015 End: 10-05-2015 *CBC with Differential *CBC with Differential [facility] Work Phone: Start: 09-11-2015 End: 10-05-2015 *CMP Complete Metabolic Panel *CMP Complete Metabolic Panel [facility] Work Phone: Start: 09-11-2015 End: 10-05-2015 Lipid panel [AGGREGATE] *Lipid Profile [facility] Work Phone: Start: 2007 RSV patient s and/or patients aged 60+ years (1 - 1-dose 60+ series) RSV patients and/or patients aged 60+ years (1 - 1-dose 60+ series) [facility] Start: 11-12-1997 Zoster Vaccines (1 o f 2) Zoster Vaccines (1 of 2) [facility] Start: 11-12-1965 Hepatitis C screening Hepatitis C Sc reemarce [facility] Start: 1945 Lipid panel Lipid Panel [facility] Start: 1945 Medicare Annual Wellness Visit Medicare Annual Wellness Visit (AWV) [facility] Start: 1945 Screening for malign ant neoplasm of colon [facility] End: 11-10-2023 CT for calcium scoring WO contrast and CTA W contrast IV Heart and coronary arteries [facility] Service Area Work Phone: Comment on above: Once for 1 Occurrenc es starting 11/10/2023 until 11/10/2023 Immunizations Immunization Date Immunization Notes Care Provider Fa mumtazty 01-24-2020 influenza virus vacc ine, unspecified formulation Saeid 1 [facility] Work Phone: Payers Date Payer Category Payer Medicare [id number] 2023 Self-pay [id number] 2023 Unknown [id number] 2017 Medicare MEDICARE MEDICAR E PART A AND B [id number] 2017-Present [address] [place] [address] [id number] Private Health Insurance [id number] Unknown [id number] Unknown [id number] 462 Unknown [id number]. 462 Unknown [id number]. 462 Unknown [id number]. 462 Unknown [id number] [id number]. 462 Unknown [id number]. 462 Unknown [id number]. 462 Unknown [id number]. 462 Unknown [id number]. 462 Unknown [id number]. 462 Unknown [id number]. 462 Unknown [id number]. 462 Social History Date Type Detail Facility Start: 03-01-2021 End: 03-01-2021 Tobacco smoking status NHIS Unknown if ever smoked [facility] Start: 09-04-[address] [facility] Start: 1945 Sex Assigned At Male [facility] Start: 01-27-[address] [facility] Start: 1945 Sex assigned at Not on file [facility] Work Phone: Gender identity Not on file [facility] Work Phone: Start: 10-31-2023 End: 11-10-2023 Exposure to SARS-CoV-2 (event) Not sure [facility] Start: 10-22-2023 Tobacco smoking stat us NHIS Never smoked tobacco (finding) [facility] Start: 08-12-2024 Sex Male (finding) [facility] Evaluation note Note Date & Type Note Facility Evaluation note No assessment information availa ble [facility] Work Phone: Evaluation note Note Date & Type Note Facility Evaluation note Diagnosis Hyperlipidemia, unspecified Hypertensive heart disease without heart failure Unspecified hypertensive heart disease without heart failure Essential (primary) hypertension Unspecified essential hypertension Abnormal result of other cardiovascular function study Chest pain, unspecified Other fatigue documented in this encounter [facility] Work Phone: Reason for referral (narrative) Note Date & Type Note Facility Reason for referral (narrative) No reason for referral information available [facility] Work Phone: Advance Directives No Advanced Directives Records Found Advance Directive Response Recorded Date/ Time Advance Directives Yes January 9:07am Living Will Yes November 25, 2019 11:18am Power of Industrial Eng Yes November 24 0 11:18am Advance Directive Response Recorded Date/ Time Advance Directives Yes January 8:07am Living Will Yes November 25, 2019 10:18am Power of Industrial Eng Yes November 24 0 10:18am Advance Directive Response Recorded Date/ Time Advance Directives Yes January 9:07am Chief Complaint and Reason for Visit Chief Complaint NEED ORDER FROM DR Alex GREEN Chief Complaint Unspecified abdomina l pain Chief Complaint Unspecified abdomina l pain RUQ PAIN Reason for Referral Specialty Diagnoses / Procedures Referred By Shanell castellanos Referred To Contact Radiology Diagnoses Hyperlipidemia, unspecified Hypertensive heart disease without heart failure Essential (primary) hypertension Abnormal result of other cardiovascular function study Chest pain, unspecified Other fatigue Procedures CT cardiac scoring wo IV contrast [facility] [address] [place] [address] Referral ID Status Reason Start Date Expiration Date Visits Requested Visits Authorized [id number] Pending Review Perform Procedure 10/29/2023 10/28/2024 1 1 Family History No Family History Records Found Relationship Condition Age at Onset Recorded Date/T osmin Not Specified Hyperlipidemia Unknown Hypertension Unknown brother Cardiac disease Unknown Coronary artery disease Unknown mother Coronary artery disease Unknown Summary Purpose Additional Source Comments Goals (unrecognized section and content) Goals may be documented in a n alternate sectionGoals may be documented in an alternate sectionGoals may be documented in an alternate sectionGoals may be documented in an alternate sectionGoals may be documented in an alternate sectionGoals may be documented in an alternate sectionGoals may be documented in an alternate sectionGoals may be documented in an alternate section Care Teams (unrecognized sec tion and content) Team Status: Active Member Role Status Dates Dr. Francesco Sierra DO Family Provider Active YU Kang Primary Care Provider Active Team Status: Inactive Member Role Status Dates YU Kang Primary Care Provide r, Attending Provider, Referring Provider Active Team Status: Inactive Member Role Status Dates YU Kang Primary Care Provider, Attending P miki Active Team Status: Active Member Role Status Dates Dr. Francesco Sierra DO Family Provider Active Dr. Francesco Sierra DO Primary Care Provider Active Team Status: Inactive Member Role Status Dates Dr. 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 Francesco Sierra DO Primary Care Provider Active Team Status: Inactive Member Role Status Dates Dr. Francesco Sierra DO Primary Care Provider Active Start: August 08, 2024 End: August 08, 2024 Dr. Francesco Sierra DO Attending Provider Active Start: August 08, 2024 End: August 08, 2024 Dr. Francesco Sierra DO Referring Provider Active Start: August 08, 2024 End: August 08, 2024 Reason for Visit (unrecogniz ed section and content) Specialty Diagnoses / Procedures Referred By Contyessenia t Referred To Contact Radiology Diagnoses Hyperlipidemia, unspecified Hypertensive heart disease without heart failure Essential (primary) hypertension Abnormal result of other cardiovascular function study Chest pain, unspecified Other fatigue Procedures CT cardiac scoring wo IV contrast [facility] [address] [place] [address] Referral ID Status Reason Start Date Expiration Date Visits Requested Visits Authorized [id number] Pending Review Perform Procedure 10/29/2023 10/28/2024 1 1 (unrecognized sect ion and content) No Status Records Found INFORMATION SOURCE (unrecogn ized section and content) DATE CREATED AUTHOR 08/26/2024 [facility] FOR RECORDS PERTAINING TO PATIENTS WHO ARE OR HAVE BEEN ENROLLED IN A CHEMICAL DEPENDENCY/SUBSTANCEABUSE PROGRAM, SOME INFORMATION MAY BE OMITTED. This clinical summary was aggregated from multiple sources. Caution should be exercised in using it in the provision of clinical care. This summary normalizes information from multiple sources, and as a consequence, information in this document may materially change the coding, format and clinical context of patient data. In addition, data may be omitted in some cases. CLINICAL DECISIONS SHOULD BE BASED ON THE PRIMARY CLINICAL RECORDS. [facility]. provides no warranty or guarantee of the accuracy or completeness of information in this document.
[2024-11-17 08:45] LABS: AST(SGOT) 18 U/L (<=37); Alanine Aminotransfer ALT/SGPT 11 U/L (<=46); Albumin, Serum 4.2 g/dL (3.4-4.8); Alkaline Phosphatase 93 U/L (40-129); Anion Gap 13 (5-15); BUN 15 mg/dL (4-19); BUN/Creat Ratio 16.4 RATIO (10-20); Calcium,Total 9.4 mg/dL (7.6-11.0); Carbon Dioxide 24.3 mmol/L (21.0-32.0); Chloride 100 mmol/L (98-108); Cholesterol 200 mg/dL (<=200); Globulin 3.4 g/dL (2.2-4.2); Glucose 145 mg/dL (70-99); Low Density Lipoprotein Calc. 103 mg/dL; Potassium 4.0 mmol/L (3.3-5.1); Triglycerides 152 mg/dL; Very Low Density Lipoprotein 30 mg/dL (5-40); cholesterol:hdl ratio screen 3.01
== END | disposition home or self-care (01) ==
LOC: LAB 06:49
PROVIDERS: PCP Family Medicine; Referring Provider Family Medicine; Visit Provider Family Medicine
DX: E11.9 Type 2 diabetes mellitus without complications (principal); E78.5 Hyperlipidemia, unspecified
CPT/HCPCS: 36415; 80053; 80061; 83036

== ENCOUNTER → 2025-02-08 | Outpatient (CLI) | payer MEDICARE, OTHER, SELFPAY ==
--- NOTE | 2025-02-08 09:30 | LES_PTH ---
PATIENT: AROLDO NEVILLE LOC: [facility] U#:[id number] AGE/SX: 79/M ROOM: RE02/08/[address]: Dr. Francesco Sierra DO : 1945 BED: DIS: 02/08/2025 SPEC #: [id number] RECD: 02/08/25 12:10 STATUS: JYOTI RETiffani #: [id number] DOMINIK: 02/08/25 09:[address]: Francesco Sierra DEPT: SURGICAL PATHOLOGY RECD BY: Simon Rodrigues Tissues: A - Skin of forearm, NOS Procedures: Surgery Specimen Level IV HEADER OPERATION: Skin lesion PRE-OP DIAGNOSIS: Possible PCC TISSUE SUBMITTED: A- Left forearm skin lesion MICROSCOPIC DIAGNOSIS A. Skin, forearm, left, excision: * Ulcerating basal cell carcinoma, nodular and infiltrative patterns (See note) Note: The lesion extends to a peripheral resection edge. MICROSCOPIC DESCRIPTION Slides are reviewed. GROSS DESCRIPTION A. Received in formalin labeled with the patient's name and date of . Designated as " LT forearm skin" is a 1.4 x 1.0 cm correia, hairbearing and slightly irregular skin ellipse excised to a maximum depth of 0.2 cm and devoid of orientation. The resection margin is inked black. Centrally on the epidermal surface is a 0.3 x 0.3 cm dark red-brown, raised scab with a thin rim of surrounding, hypopigmentation, located 0.3 cm from the peripheral edge. The specimen is serially sectioned and entirely submitted in 1 cassette. MD 02/08/2025 CPT:93740
== END | disposition home or self-care (01) ==
LOC: LABSPEC 12:24
PROVIDERS: PCP Family Medicine; Referring Provider Family Medicine; Visit Provider Family Medicine
DX: C44.619 Basal cell carcinoma of skin of left upper limb, including shoulder (principal)
CPT/HCPCS: 88305

== ENCOUNTER → 2025-03-03 | Outpatient (CLI) | payer MEDICARE, OTHER, SELFPAY ==
--- NOTE | 2025-03-03 11:35 | US_ITS ---
PROCEDURE: OTHER UNLISTED US PROCEDURE 03/03/2025 REASON FOR EXAM: RIGHT CHEEK MASS Six-months. TECHNIQUE: Procedure Code: USOTH SOFT Modality: US Procedure: OTHER UNLISTED US PROCEDURE. Targeted ultrasound of the palpable lump in the right maxillary region was obtained. COMPARISON: None FINDINGS: The palpable lump corresponds to a 6 mm x 5 mm x 3 mm ovoid hypoechoic nodule with an echogenic center suggestive of a small lymph node. US/Other Unlisted US Procedure IMPRESSION: The palpable lump corresponds to a 6 mm x 5 mm x 3 mm ovoid hypoechoic nodule w ith echogenic center suggestive of a small lymph node. Reading Location: [facility]
== END | disposition home or self-care (01) ==
LOC: US 11:31
PROVIDERS: PCP Family Medicine; Referring Provider Surgery Plastic and Reconstructive Surgery; Visit Provider Surgery Plastic and Reconstructive Surgery
DX: R22.0 Localized swelling, mass and lump, head (principal)
CPT/HCPCS: 76999

== ENCOUNTER 2025-03-24 08:51 | Day surgery (SDC) | payer MEDICARE, OTHER, SELFPAY ==
--- NOTE | 2025-03-17 23:34 | PAT.ANE_ITS ---
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 When Was Last Pacemaker Check QUESTION #4 FULL TEXT: You/Your Family Experience fever (hyperthermia) with Anesthesia Last Oral Intake Last Oral intake: Last Oral Intake NPO since Meds taken in AM with sips of water? 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 - customer care agent: PONV - customer care agent Female No 03/17/25 09:08 HX of Motion Sickness Yes 03/17/25 09:08 HX of N/V After Surgery No 03/17/25 09:08 Non-Smoker Yes 03/17/25 09:08 Duration of Surgery greater No 03/17/25 09:08 than 60 minutes Number of Risk Factors 2 03/17/25 09:08 PONV Score Moderate Risk 03/17/25 09:08 Height & Weight Height & Weight: Anesthesia: Height & Weight Height 5 ft 9 in 02/23/25 14:11 Respiratory Assessment Respiratory Assessment - customer care agent: Respiratory Tract Infection Hx - customer care agent Hx Respiratory Tract Infection No 03/17/25 09:08 STOP Sleep Apnea STOP Sleep Apnea - customer care agent: STOP Sleep Apnea - customer care agent Hx Hypertension Yes 03/17/25 09:08 Hx Sleep Apnea No 03/17/25 09:08 CPAP No 12/12/16 10:32 BIPAP No 12/05/16 08:10 Do you snore loudly (louder No 03/17/25 09:08 than talking or can be heard Do you often feel tired/ No 03/17/25 09:08 fatigued/ sleepy during daytime? Has anyone observed you stop No 03/17/25 09:08 breathing during sleep? STOP Results Negative 03/17/25 09:08 QUESTION #5 FULL TEXT : Do you snore loudly (louder than talking or can be heard through closed doors)? 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 Specify any problems Hx of Preganancy in last 3 N/A 03/17/25 09:08 Months Nurse Filling Out Transfusion JZOLLMIGUEL 03/17/25 09:08 & Questions: Date: 03/17/25 03/17/25 09:08 Time: 09:10 03/17/25 09:08 Patient unable to answer at this time (ie. confused, unrespo /Reproduction History /Reproductive History - customer care agent: /Reproductive Hx- customer care agent Hx Now No 03/17/25 09:08 Gestational Age (in weeks): EDC: Hx Hx Para Hx Section SAB No 03/17/25 09:08 Does the father of the baby or his family experience fever w Father of the baby Malignant Hypertension history comment [facility] Medical History (Updated 03/17/25 @ 09:08 by Lea Valencia) Wears glasses Easy bruising Non-smoker History of trigger finger Cough Paresthesia Back pain Fatty liver Vitamin B12 deficiency Prostatic intraepithelial neoplasia Right inguinal hernia Fatigue RLS (restless legs syndrome) Hyperlipidemia Type II diabetes mellitus BPH loc w urin obs/LUTS Chest pain Synovial cyst of popliteal space [Michael], left knee Osteoarthritis of left knee Left knee pain Enlarged prostate Hx of primary hypertension Family history of heart disease Familial combined hyperlipidemia Benign essential hypertension Home Medications ?Medication ?Instructions ?Recorded ?Last Taken ?Type amlodipine 10 mg tablet 10 mg PO DAILY 01/10/1412/02 05:45 History finasteride 5 mg tablet 5 mg PO DAILY 01/10/14 Unkno wn History abnztflezhx-qnfpekkdj-upt C-Mn 500 2 cap PO DAILY 10/02 Unknown History mg-400 mg capsule (Glucosamine Chondroitin Maximum Strength) losartan 50 mg tablet 50 mg PO DAILY 10/12/23 Unkn own History mecobalamin (vitamin B12) 1,000 1,000 mcg PO BID 10/11 Unknown History mcg chewable tablet metformin 500 mg tablet 500 mg PO BID 10/12/23 Unkno wn History multivitamin 1 tab PO DAILY 10/12/23 Unkn own History aspirin 81 mg tablet,delayed 81 mg PO DAILY 10/22/23 U nknown History release atorvastatin 10 mg tablet 10 mg PO QHS #90 tabs Unknown Rx Allergy/AdvReac Type Severity Reaction Status Date / Time ondansetron HCl (From Zofran Allergy Other Verified 03/17/25 09:02 (as hydrochloride)) midazolam HCl (From Versed) AdvReac Nausea Verified 03/17/25 09:02 morphine AdvReac Nausea Verified 03/17/25 09:02 Family History Brother Heart disease CAD (coronary artery disease) Mother CAD (coronary artery disease) Other Hyperlipidemia Hypertension Surgical History (Updated 03/17/25 @ 09:08 by Lea Valencia) Hx of colonoscopy Hx of hernia repair Hx of arthroscopy of left knee History of carpal tunnel release Social History Smoking Status: Never smoker alcohol intake: never substance use type: does not use caffeine: Yes Type: coffee Audit: Pertinent Findings Pertinent Findings EKG Perinent findings: 10/22/2023. Sinus rhythm within normal limits. Stress test pertinent findings: September 28, 2023. Peak met capacity of 8.5 METS. Technically adequate exercise tolerance test. Negative for exercise-induced chest pain. Positive for exercise-induced EKG changes of ischemia. Normal functional capacity for age. Echo (EF%) pertinent findings: 11/27/2023. EF of 65%. PASP is 34 mmHg. Consult pertinent findings: October 22, 2023. Dr. Valadez. 1. Abnormal cardiovascular stress test-the stress test has ST and T wave segment changes suggestive of ischemia. Will check a coronary CT angio. Check echo. Start aspirin 81 mg. 2. Chest pain-resolved no symptoms over the last month. 3. Hypertension-continue amlodipine and losartan. Recommendation Anesthesia Recommendation Anesthesia recommendation: F/U recommended (Did patient ever get his coronary CT angio? It was to follow-up the ischemia on his stress test.)
--- NOTE | 2025-03-20 16:52 | PAT.ANESEVAL ---
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 When Was Last Pacemaker Check QUESTION #4 FULL TEXT: You/Your Family Experience fever (hyperthermia) with Anesthesia Last Oral Intake Last Oral intake: Last Oral Intake NPO since Meds taken in AM with sips of water? 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 Female No 03/17/25 09:08 HX of Motion Sickness Yes 03/17/25 09:08 HX of N/V After Surgery No 03/17/25 09:08 Non-Smoker Yes 03/17/25 09:08 Duration of Surgery greater No 03/17/25 09:08 than 60 minutes Number of Risk Factors 2 03/17/25 09:08 PONV Score Moderate Risk 03/17/25 09:08 Height & Weight Height & Weight: Anesthesia: Height & Weight Height 5 ft 9 in 02/23/25 14:11 Respiratory Assessment Respiratory Assessment - manager of recruiting: Respiratory Tract Infection Hx - manager of recruiting Hx Respiratory Tract Infection No 03/17/25 09:08 STOP Sleep Apnea STOP Sleep Apnea - manager of recruiting: STOP Sleep Apnea - manager of recruiting Hx Hypertension Yes 03/17/25 09:08 Hx Sleep Apnea No 03/17/25 09:08 CPAP No 12/12/16 10:32 BIPAP No 12/05/16 08:10 Do you snore loudly (louder No 03/17/25 09:08 than talking or can be heard Do you often feel tired/ No 03/17/25 09:08 fatigued/ sleepy during daytime? Has anyone observed you stop No 03/17/25 09:08 breathing during sleep? STOP Results Negative 03/17/25 09:08 QUESTION #5 FULL TEXT : Do you snore loudly (louder than talking or can be heard through closed doors)? Tobacco Use History Tobacco Use History - manager of recruiting: Tobacco Use History - manager of recruiting Tobacco Use Smoking Status Never smoker 03/17/25 09:08 Hx Tobacco Use No 03/17/25 09:08 Years Smoking Packs Smoked per Day Smoking Cessation Date was within the last 15 years Hx Smoking Cessation Date Hx Smoking Cessation Counseling Hematologic Medial History Hematologic Hx - manager of recruiting: Hematologic Medical Hx - cst Hx of Blood Transfusion No 03/17/25 09:08 Hx of Transfusion in last 3 No 03/17/25 09:08 Months Date of Last Transfusion (if within last 3 months) Ever experience any problems No 03/17/25 09:08 with transfusion(s)? Specify any problems Hx of Preganancy in last 3 N/A 03/17/25 09:08 Months Nurse Filling Out Transfusion JZOLLMIGUEL 03/17/25 09:08 & Questions: Date: 03/17/25 03/17/25 09:08 Time: 09:10 03/17/25 09:08 Patient unable to answer at this time (ie. 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 Hx Now No 03/17/25 09:08 Gestational Age (in weeks): EDC: Hx Hx Para Hx Section SAB No 03/17/25 09:08 Does the father of the baby or his family experience fever w Father of the baby Malignant Hypertension history comment [facility] Medical History (Updated 03/17/25 @ 09:08 by Lea Valencia) Wears glasses Easy bruising Non-smoker History of trigger finger Cough Paresthesia Back pain Fatty liver Vitamin B12 deficiency Prostatic intraepithelial neoplasia Right inguinal hernia Fatigue RLS (restless legs syndrome) Hyperlipidemia Type II diabetes mellitus BPH loc w urin obs/LUTS Chest pain Synovial cyst of popliteal space [Michael], left knee Osteoarthritis of left knee Left knee pain Enlarged prostate Hx of primary hypertension Family history of heart disease Familial combined hyperlipidemia Benign essential hypertension Home Medications ?Medication ?Instructions ?Recorded ?Last Taken ?Type amlodipine 10 mg tablet 10 mg PO DAILY 01/10/14 12/12/16 05:45 History finasteride 5 mg tablet 5 mg PO DAILY 01/10/14 Unknown History vhtxceksuyt-xynlroech-avs C-Mn 500 2 cap PO DAILY 10/12/23 Unknown History mg-400 mg capsule (Glucosamine Chondroitin Maximum Strength) losartan 50 mg tablet 50 mg PO DAILY 10/12/23 Unknown History mecobalamin (vitamin B12) 1,000 1,000 mcg PO BID 10/12/23 Unknown History mcg chewable tablet metformin 500 mg tablet 500 mg PO BID 10/12/23 Unknown History multivitamin 1 tab PO DAILY 10/12/23 Unknown History aspirin 81 mg tablet,delayed 81 mg PO DAILY 10/22/23 Unknown History release atorvastatin 10 mg tablet 10 mg PO QHS #90 tabs 10/22/23 Unknown Rx Allergy/AdvReac Type Severity Reaction Status Date / Time ondansetron HCl (From Zofran Allergy Other Verified 03/17/25 09:02 (as hydrochloride)) midazolam HCl (From Versed) AdvReac Nausea Verified 03/17/25 09:02 morphine AdvReac Nausea Verified 03/17/25 09:02 Family History Brother Heart disease CAD (coronary artery disease) Mother CAD (coronary artery disease) Other Hyperlipidemia Hypertension Surgical History (Updated 03/17/25 @ 09:08 by Lea Valencia) Hx of colonoscopy Hx of hernia repair Hx of arthroscopy of left knee History of carpal tunnel release Social History Smoking Status: Never smoker alcohol intake: never substance use type: does not use caffeine: Yes Type: coffee Audit: Pertinent Findings HISTORY of Pertinent Findings History of Pertinent Findings: EKG Pertinent Findings EKG Perinent findings 10/22/2023. Sinus rhythm 03/17/25 23:41 within normal limits. Stress Test Pertinent Findings Stress test pertinent findings September 28, 2023. Peak met 03/17/25 23:41 capacity of 8.5 METS. Technically adequate exercise tolerance test. Negative for exercise- induced chest pain. Positive for exercise- induced EKG changes of ischemia. Normal functional capacity for age. Echo Pertinent Findings Echo (EF%) pertinent findings 11/27/2023. EF of 65%. PASP 03/17/25 23:38 is 34 mmHg. Consult Pertinent Findings Consult pertinent findings October 22, 2023. Dr. Valadez. 03/17/25 23:47 1. Abnormal cardiovascular stress test-the stress test has ST and T wave segment changes suggestive of ischemia. Will check a coronary CT angio. Check echo. Start aspirin 81 mg. 2. Chest pain-resolved no symptoms over the last month . 3. Hypertension-continue amlodipine and losartan. Pertinent Findings Additional pertinent findings: November 30, 2023. CT angio demonstrating mild plaque noted close to the origin of the right coronary artery with no high-grade stenosis noted. Recommendation Anesthesia Recommendation Anesthesia recommendation: OPTIMIZED for anesthesia
--- NOTE | 2025-03-24 09:07 | HP.PCM_ITS ---
HPI - General HPI Narrative AROLDO NEVILLE, is a 79 M who presents with left forearm nodular basal cell carcinoma diagnosed by Dr. Sierra. There were no margins or orientation. It was biopsied on [address] Sierra and I reviewed the pathology report which demonstrated nodular and ulcerated basal cell carcinoma. [facility] Medical History Wears glasses Easy bruising Non-smoker History of trigger finger Cough Paresthesia Back pain Fatty liver Vitamin B12 deficiency Prostatic intraepithelial neoplasia Right inguinal hernia Fatigue RLS (restless legs syndrome) Hyperlipidemia Type II diabetes mellitus BPH loc w urin obs/LUTS Chest pain Synovial cyst of popliteal space [Michael], left knee Osteoarthritis of left knee Left knee pain Enlarged prostate Hx of primary hypertension Family history of heart disease Familial combined hyperlipidemia Benign essential hypertension Home Medications ?Medication ?Instructions ?Recorded ?Last Taken ?Type amlodipine 10 mg tablet 10 mg PO DAILY 01/10/1412/02 05:45 History finasteride 5 mg tablet 5 mg PO DAILY 01/10/14 Unkno wn History snzozrimovt-wsilfmnzn-sft C-Mn 500 2 cap PO DAILY 10/02 Unknown History mg-400 mg capsule (Glucosamine Chondroitin Maximum Strength) losartan 50 mg tablet 50 mg PO DAILY 10/12/23 Unkn own History mecobalamin (vitamin B12) 1,000 1,000 mcg PO BID 10/11 Unknown History mcg chewable tablet metformin 500 mg tablet 500 mg PO BID 10/12/23 Unkno wn History multivitamin 1 tab PO DAILY 10/12/23 Unkn own History aspirin 81 mg tablet,delayed 81 mg PO DAILY 10/22/23 U nknown History release atorvastatin 10 mg tablet 10 mg PO QHS #90 tabs Unknown Rx Allergy/AdvReac Type Severity Reaction Status Date / Time ondansetron HCl (From Zofran Allergy Other Verified 03/24/25 09:22 (as hydrochloride)) midazolam HCl (From Versed) AdvReac Nausea Verified 03/24/25 09:22 morphine AdvReac Nausea Verified 03/24/25 09:22 Family History Brother Heart disease CAD (coronary artery disease) Mother CAD (coronary artery disease) Other Hyperlipidemia Hypertension Surgical History History of excision of lesion Hx of colonoscopy Hx of hernia repair Hx of arthroscopy of left knee History of carpal tunnel release Social History Smoking Status: Never smoker alcohol intake: never substance use type: does not use caffeine: Yes Type: coffee Physical Exam Narrative Left forearm scar consistent with the biopsy Assessment & Plan Assessment/Plan (1) Basal cell carcinoma: PLAN: Discussed with Dr. Sierra. Positive margin on excisional biopsy (bcc). Will obtain 5 mm margins I talked to the patient extensively about the risks of surgery, including bleeding, infection, damage to surrounding structures, poor scaring, surgical site dehiscence and wound formation, need for wound care, need for repeat operations, failure to obtain the desired result, DVT/PE, and the risks of anesthesia including , including stroke (from low blood pressure/ischemia or clot). The benefits and alternatives of this surgery were also discussed. All of their questions were answered, and they agreed to proceed with surgery. Patient understands this will likely be a two stage procedure (wait for permanent margins) I marked him in preop and he was in agreement with the site marking.
--- NOTE | 2025-03-24 09:17 | PRE.ANES_ITS ---
ASA Classification* ASA Classification ASA Classification: 2 Assessment & Plan Anesthesia* Anesthesia Assessment Anesthesia Assessment: Discussed sedation and/or anesthesia options, risks, benefits, and alternatives with patient/parents/legal guardian/POA. Questions invited. The patient/parents/legal guardian/POA seems to understand and agrees to proceed with anesthesia plan. Reviewed the physical assessment, medical history, allergy history and patient home medications list prior to surgery/procedure/anesthetic and documented any changes. Performed airway and anesthesia risk assessments. Anesthesia Type Anesthesia Type: MAC Anesthesia Focused Assessment* Airway Assessment Mouth opens: >3 cm Mallampati Score: II Labs Anesthesia Preop lab: CBC WBC, (4.4-11.0) 6.2 K/mm3 04/06/24, 08:03 RBC, (4.6-6.2) 5.49 M/mm3 04/06/24, 08:03 Hgb, (13.0-16.5) 16.1 g/dL 04/06/24, 08:03 Hct, (40-54) 48.9 % 04/06/24, 08:03 Plt Count, (150-450) 353 K/mm3 04/06/24, 08:03 CHEMISTRY Potassium, (3.3-5.1) 4.0 mmol/L 11/17/24, 06:51 Sodium, (133-145) 137 mmol/L 11/17/24, 06:51 Magnesium, (1.6-2.6) 2.4 mg/dL 03/20/23, 07:07 BUN, (4-19) 15 mg/dL 11/17/24, 06:51 Creatinine, (0.70-1.20) 0.94 mg/dL 11/17/24, 06:51 Glucose, (70-99) 145 mg/dL H 11/17/24, 06:51 TSH, (0.358-3.74) 1.63 uIU/mL 08/05/22, 08:44 COAG Pre-Assessment Diagnosis/Proposed Procedure Planned Operative Procedure(s): (L) Excision basal cell carcinoma left forearm, Stage #1 Anesthesia History 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 When Was Last Pacemaker Check QUESTION #4 FULL TEXT: You/Your Family Experience fever (hyperthermia) with Anesthesia Last Oral Intake Last Oral intake: Last Oral Intake NPO since Meds taken in AM with sips of water? 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 - corporate health consultant: PONV - corporate health consultant Female No 03/17/25 09:08 HX of Motion Sickness Yes 03/17/25 09:08 HX of N/V After Surgery No 03/17/25 09:08 Non-Smoker Yes 03/17/25 09:08 Duration of Surgery greater No 03/17/25 09:08 than 60 minutes Number of Risk Factors 2 03/17/25 09:08 PONV Score Moderate Risk 03/17/25 09:08 Height & Weight Height & Weight: Anesthesia: Height & Weight Height 5 ft 9 in 02/23/25 14:11 Respiratory Assessment Respiratory Assessment - corporate health consultant: Respiratory Tract Infection Hx - corporate health consultant Hx Respiratory Tract Infection No 03/17/25 09:08 STOP Sleep Apnea STOP Sleep Apnea - corporate health consultant: STOP Sleep Apnea - corporate health consultant Hx Hypertension Yes 03/17/25 09:08 Hx Sleep Apnea No 03/17/25 09:08 CPAP No 12/12/16 10:32 BIPAP No 12/05/16 08:10 Do you snore loudly (louder No 03/17/25 09:08 than talking or can be heard Do you often feel tired/ No 03/17/25 09:08 fatigued/ sleepy during daytime? Has anyone observed you stop No 03/17/25 09:08 breathing during sleep? STOP Results Negative 03/17/25 09:08 QUESTION #5 FULL TEXT : Do you snore loudly (louder than talking or can be heard through closed doors)? 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 Specify any problems Hx of Preganancy in last 3 N/A 03/17/25 09:08 Months Nurse Filling Out Transfusion JZOLLINGE 03/17/25 09:08 & Questions: Date: 03/17/25 03/17/25 09:08 Time: 09:10 03/17/25 09:08 Patient unable to answer at this time (ie. confused, unrespo /Reproduction History /Reproductive History - corporate health consultant: /Reproductive Hx- corporate health consultant Hx Now No 03/17/25 09:08 Gestational Age (in weeks): EDC: Hx Hx Para Hx Section SAB No 03/17/25 09:08 Does the father of the baby or his family experience fever w Father of the baby Malignant Hypertension history comment [facility] Medical History Wears glasses Easy bruising Non-smoker History of trigger finger Cough Paresthesia Back pain Fatty liver Vitamin B12 deficiency Prostatic intraepithelial neoplasia Right inguinal hernia Fatigue RLS (restless legs syndrome) Hyperlipidemia Type II diabetes mellitus BPH loc w urin obs/LUTS Chest pain Synovial cyst of popliteal space [Michael], left knee Osteoarthritis of left knee Left knee pain Enlarged prostate Hx of primary hypertension Family history of heart disease Familial combined hyperlipidemia Benign essential hypertension Home Medications ?Medication ?Instructions ?Recorded ?Last Taken ?Type amlodipine 10 mg tablet 10 mg PO DAILY 01/10/1412/02 05:45 History finasteride 5 mg tablet 5 mg PO DAILY 01/10/14 Unkno wn History hsxaprctdyx-pvotkkcjy-hch C-Mn 500 2 cap PO DAILY 10/02 Unknown History mg-400 mg capsule (Glucosamine Chondroitin Maximum Strength) losartan 50 mg tablet 50 mg PO DAILY 10/12/23 Unkn own History mecobalamin (vitamin B12) 1,000 1,000 mcg PO BID 10/11 Unknown History mcg chewable tablet metformin 500 mg tablet 500 mg PO BID 10/12/23 Unkno wn History multivitamin 1 tab PO DAILY 10/12/23 Unkn own History aspirin 81 mg tablet,delayed 81 mg PO DAILY 10/22/23 U nknown History release atorvastatin 10 mg tablet 10 mg PO QHS #90 tabs Unknown Rx Allergy/AdvReac Type Severity Reaction Status Date / Time ondansetron HCl (From Zofran Allergy Other Verified 03/17/25 09:02 (as hydrochloride)) midazolam HCl (From Versed) AdvReac Nausea Verified 03/17/25 09:02 morphine AdvReac Nausea Verified 03/17/25 09:02 Family History Brother Heart disease CAD (coronary artery disease) Mother CAD (coronary artery disease) Other Hyperlipidemia Hypertension Surgical History History of excision of lesion Hx of colonoscopy Hx of hernia repair Hx of arthroscopy of left knee History of carpal tunnel release Social History Smoking Status: Never smoker alcohol intake: never substance use type: does not use caffeine: Yes Type: coffee Review of Systems (Anesthesia) ROS Narrative System reviewed and no additional complaints, except as documented.
[2025-03-24 09:35] VITALS: BP 165/77; PULSE 66; RESP 18; TEMP 36.6; O2SAT 100; BMI 26.8
[2025-03-24] MEDS: Lactated Ringers 1,000 ML 15 ML IV (09:52)
[2025-03-24] MEDS: Lactated Ringers 500 ML IV (10:09)
--- NOTE | 2025-03-24 10:10 | OP.PCM_ITS ---
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 Uniforms: Giovanna Bhakta Tasks completed by miller first: Closing and Retracting Type of Anesthesia: MAC/Supplemental (9 cc of 0.25% marcaine with 1:200,000 epinephrine and 1% lidocaine with 1:200,000 epinephrine ) RN Documented Start/Stop Times: Operation Date: 03/24/25 10:30 Case Time Into Pre-Op 03/24/25 09:15 Anesthesia Start 03/24/25 10:09 Into Room 03/24/25 10:09 Procedure Start 03/24/25 10:28 Procedure End 03/24/25 10:48 Anesthesia End 03/24/25 10:52 Out of Room 03/24/25 10:52 Into Phase II Recovery 03/24/25 10:55 Out of Phase II 03/24/25 11:16 Procedure Start Time: 10:28 Procedure Stop Time: 10:52 Select all DRAINS/GRAFTS/IMPLANTS that apply: None Estimated Blood Loss: 5 cc Specimen collected: Yes Description of specimen(s) removed: basal cell carcinoma excision, oriented with silk stitch (1 stitch 12 o'clock proximal, 2 stitches 3 o'clock, 3 stitches 6 o'clock distal) Description of surgery: Indications: Patient is delightful 79-year-old male with a left forearm basal cell carcinoma that a primary care physician attempted excisional biopsy. It came back positive margins and therefore the nodular basal cell carcinoma requires excision. He presents today for the excision and understands the risks, benefits, and alternatives to procedure and like to proceed. Procedure details: Patient was correct identified in preoperative holding and the left forearm was marked. Patient and his were in agreement with the site marking. He was taken back to the operating room he was administered local anesthesia as noted above. He was prepped and draped in sterile fashion. Timeout was performed. 15 blade scalpel was used to make an elliptical incision around the residual basal cell carcinoma/scar with care taken to have 5 mm clinical margins. The basal cell carcinoma was excised full-thickness into subcutaneous tissues and care was taken to preserve and protect cutaneous nerves. The basal cell carcinoma excision measured 2 x 5 cm. The specimen was oriented with 1 stitch proximal 12:00, 2 stitches 3:00, and 3 stitches 6:00 distal. It was sent to pathology. The wound was irrigated with copious amounts normal saline. It was then closed primarily by undermining followed by 3-0 PDS deep dermal suture followed by 3-0 Monocryl deep dermal suture and running subcuticular 3-0 Iosco cryl and Prineo tape. Patient tolerated procedure well. This was a total intermediate closure of 5 cm. Surgical Findings: Able to close wound primarily Complications Complications: No
[2025-03-24] MEDS: Cefazolin 1 GM/5 ML Vial 2 GM IV (10:15)
[2025-03-24] MEDS: Lidocaine 1% /Epi 1:100 (20ml) 20 ML Vial (10:18)
[2025-03-24] MEDS: Bupiv/Epi 0.25% 30 ML Vial (10:18)
--- NOTE | 2025-03-24 10:30 | LES_PTH ---
PATIENT: AROLDO NEVILLE LOC: [facility] U#:[id number] AGE/SX: 79/M ROOM: RE03/24/[address]: Dr. Yoav Stokes MD : 1945 BED: DIS: 03/24/2025 SPEC #: [id number] RECD: 03/24/25 12:50 STATUS: JYOTI RETiffani #: [id number] DOMINIK: 03/24/25 10:[address]: Yoav Stokes DEPT: SURGICAL PATHOLOGY RECD BY: Simon Rodrigues ENTERED: 03/24/25 14:50 SP TYPE: Lesion OTHR DR: Dr. Francesco Sierra, Tissues: A - Skin of arm Procedures: Surgery Specimen Level IV HEADER OPERATION: Excision basal cell carcinoma left forearm PRE-OP DIAGNOSIS: Basal cell carcinoma TISSUE SUBMITTED: A- Basal cell carcinoma of left arm *1 stitch- 12o'clock, 2 stitches - 3o'clock, 3- 6o'clock MICROSCOPIC DIAGNOSIS A. Skin, forearm, left excision: * Basal cell carcinoma, infiltrative pattern (See note) * Dermal scar Note: The lesion is completely excised in the histologic planes of sectioning examined MICROSCOPIC DESCRIPTION Slides are reviewed. GROSS DESCRIPTION Received in formalin labeled with the patient's name and date of . Designated as basal cell carcinoma, left arm is a 3.5 x 1.8 cm correia skin ellipse excised to a a depth of 0.2 cm to 0.4 cm. The specimen is oriented as follows: Single suture: designated as 12:00 (proximal)Double suture: designated as 3:00Triple suture: designated as 6:00 (distal) There is a 1.0 x 0.1 cm pink, slightly raised linear scar located the following distances from the margins: 12:00: 1.6 cm 3:00: 0.5 cm 6:00: 1.2 cm9:00: 0.8 cmDeep: 0.2 cm Ink ortiz: 12:00 to 3:00: Green3:00 to 6:00: Yellow6:00 to 9:00: Orange9:00 to 12:00: BlueDeep: Black The specimen is serially sectioned from 12:00 (proximal) to 6:00 (distal), and entirely submitted, sequentially in 5 cassettes. PR 03/24/2025 CPT:83141
[2025-03-24 11:02] VITALS: TEMP 2.7; TEMP 37
--- NOTE | 2025-03-24 11:02 | PCM.POST.ANE ---
Anesthesia: Postop Eval I Current Vital Signs Temperature: 37 F (skin) Pulse Rate: 65 Blood Pressure: 170/68 Respiratory Rate: 12 Pulse Ox: 99 Oxygen Delivery Method: Room Air Assessment Airway patent: Yes Spontaneous unlabored respirations: Yes Mental status: Awake and Calm nausea: No Vomiting: No Anesthesia Complication: No Fluid Hydration Crystalloid volume administer (ml): 500 Total IV fluid infused: 500 Progress Note Anesthesia document: Postop Eval 1 completed: Yes
[2025-03-24 11:04] VITALS: BP 170/68; PULSE 65; RESP 12; O2SAT 99
[2025-03-24 11:07] VITALS: BP 165/77; BP 169/53; PULSE 64; RESP 16; TEMP 36.7; O2SAT 100
== END 2025-03-24 11:16 | disposition home or self-care (01) ==
LOC: SDC 08:51 → AC 08:52
PROVIDERS: PCP Family Medicine; Referring Provider Surgery Plastic and Reconstructive Surgery; Visit Provider Surgery Plastic and Reconstructive Surgery
PROC: (CPT 11606; principal; 2025-03-24 10:15)
DX: C44.619 Basal cell carcinoma of skin of left upper limb, including shoulder (principal); E11.9 Type 2 diabetes mellitus without complications; E78.49 Other hyperlipidemia; I10 Essential (primary) hypertension; L90.5 Scar conditions and fibrosis of skin
CPT/HCPCS: 11606; 12032; 00400; 82962; 88305

== ENCOUNTER → 2025-04-04 | Outpatient (CLI) | payer MEDICARE, OTHER, SELFPAY ==
--- NOTE | 2025-04-04 08:40 | CT_ITS ---
PROCEDURE: SOFT TISSUE NECK WITH CONTRAST 04/04/2025 REASON FOR EXAM: PAROTID MASS VS LYMPH NODE TECHNIQUE: Procedure Code: CTNEW Modality: CT Procedure: SOFT TISSUE NECK WITH CONTRAST CONTRAST: Isovue 370 VOLUME: 95 mL One or more dose reduction techniques were used (e.g., Automated exposure control, adjustment of the mA and/or kV according to patient size, use of iterative reconstruction technique). RADIATION DOSE SUMMARY: DLP: 552.17 mGycm COMPARISON: Correlation with soft tissue ultrasound 03/03/2025 FINDINGS: Beam hardening artifact from dental amalgam obscures adjacent anatomy, limiting assessment. Aerodigestive tract: The floor of mouth, base of tongue, nasopharynx, oropharynx, hypopharynx, and larynx appear overall symmetric without evidence of nodular or masslike enhancement. The visualized trachea is clear. The nasal cavity is unobstructed. Salivary glands: (Major): The submandibular glands and parotid glands appear within normal limits. Thyroid gland: Hypodense 1.3 cm right thyroid nodule. 3 mm left thyroid nodule. Lymph nodes: There is no evidence of pathologic cervical lymphadenopathy. Multiple suprahyoid lymph nodes all measuring less than 1.5 cm. Posterior to the right superficial parotid gland, there is lymph node measuring up to 6 mm. Vasculature: The common carotid, cervical internal carotid, and cervical vertebral arteries opacify with intravenously administered contrast. Left dominant vertebral artery. Paranasal sinuses: The paranasal sinuses are predominantly clear. Orbits: Unremarkable. Intracranial/cranium: The partially visualized intracranial contents appear overall within normal limits for the patient's stated age, although assessment is limited due to technique (e.g. the [id number]). Cervical spine: Cervical spondylosis. Lung apices: The visualized lung apices are predominantly clear. CT/Soft Tissue Neck WITH Contrast IMPRESSION: 1. No dominant neck mass or pathologic cervical lymphadenopathy. 2. Multiple suprahyoid lymph nodes all measuring less than 1.5 cm and likely re active in nature. 3. 1.3 cm right thyroid nodule. Recommend thyroid ultrasound for further juan cterization. Reading Location: [id number]
[2025-04-04 09:03] LABS: CREATININE FINGERSTICK < 1.0 mg/dL (0.70-1.30); EGFR FINGERSTICK > 60.0000 mL/min (>60)
== END | disposition home or self-care (01) ==
LOC: CT 08:22
PROVIDERS: PCP Family Medicine; Referring Provider Otolaryngology; Visit Provider Otolaryngology
DX: Z01.812 Encounter for preprocedural laboratory examination (principal); R22.1 Localized swelling, mass and lump, neck
CPT/HCPCS: 70491; Q9967

== ENCOUNTER → 2025-04-12 | Outpatient (CLI) | payer MEDICARE, OTHER, SELFPAY ==
--- NOTE | 2025-04-12 12:10 | US_ITS ---
PROCEDURE: THYROID 04/12/2025 REASON FOR EXAM: NODULE TECHNIQUE: Procedure Code: USTHY Modality: US Procedure: THYROID COMPARISON: None FINDINGS: Right thyroid lobe size: 5.7 x 2 x 2.2 cm Left thyroid lobe size: 4.5 x 2.0 x 1.9 cm Isthmus: 0.4 cm. Small hypoechoic nodule in the isthmus measuring 7 mm. Background parenchymal echotexture is homogeneous. Nodules: (Only the 4 most suspicious nodules are described below). 1. Lobe: Right, Location: Mid, Size: cm, Stability: N/A Composition: Cystic or mostly cystic (+0) Echogenicity: Anechoic (+0) Margin: Smooth (+0) Shape: Wider than tall (+0) Echogenic Foci: Peripheral calcification (+2) TI-RADS: 2 1. Lobe: Left, Location: Upper, Size: 1.3 x 1.3 x 0.8 cm, Stability: N/A Composition: Solid or almost completely solid (+2) Echogenicity: Hypoechoic (+2) Margin: Smooth (+0) Shape: Wider than tall (+0) Echogenic Foci: None (+0) TI-RADS: 4 3. Lobe: Left, Location: Upper, Size: 0.8 x 0.6 x 0.6 cm, Stability: N/A Composition: Solid or almost completely solid (+2) Echogenicity: Hypoechoic (+2) Margin: Ill-defined (+0) Shape: Wider than tall (+0) Echogenic Foci: Macrocalcification (+1) TI-RADS: 5 4. Lobe: Left, Location: Mid, Size: 0.8 x 0.8 x 0.5 cm, Stability: N/A Composition: Solid or almost completely solid (+2) Echogenicity: Hyper to Isoechoic (+1) Margin: Ill-defined (+0) Shape: Wider than tall (+0) Echogenic Foci: None (+0) TI-RADS: 3 US/Thyroid IMPRESSION: Multinodular thyroid gland. Most suspicious nodules include complex solid nodu le in the left midgland measuring 1.3 cm ( TI-RADS: 4) and a 8 mm nodule in the left midgland with macro calcification TI -RADS: 5 RECOMMENDATION: Follow up ultrasound recommended in 12 months to assess stability Reading Location: [facility]
[2025-04-12 13:50] LABS: PSA,Total- Diagnostic 2.77 ng/mL (0.00-4.00)
== END | disposition home or self-care (01) ==
LOC: OPUS 12:11 → US 12:17
PROVIDERS: PCP Family Medicine; Referring Provider Otolaryngology; Visit Provider Otolaryngology
DX: E04.1 Nontoxic single thyroid nodule (principal); R97.20 Elevated prostate specific antigen [PSA]
CPT/HCPCS: 36415; 76536; 84153